=== PATIENT | male | born 1940 | race Caucasian/White ===

== ENCOUNTER → 2017-10-01 | Outpatient (CLI) | payer MEDICARE ==
--- NOTE | 2017-10-01 14:37 | Diagnostic Imaging Report ---
PROCEDURE: CT ABDOMEN AND PELVIS WITHOUT CONTRAST TECHNIQUE: The abdomen and pelvis were scanned utilizing a multidetector helical scanner from the diaphragm to the lesser trochanter after the oral administration of water. No IV contrast was administered per protocol. Coronal and sagittal multiplanar reformations were obtained. COMPARISON: None. INDICATIONS: CALCULUS OF KIDNEY FINDINGS: ABSENCE OF INTRAVENOUS CONTRAST DECREASES SENSITIVITY FOR DETECTION OF FOCAL LESIONS AND VASCULAR PATHOLOGY. LOWER THORAX: 2-3 mm noncalcified nodule in the posterior right lower lobe (series 3, image 29). Atherosclerotic calcification of the coronary arteries. HEPATOBILIARY: No focal hepatic lesions. No biliary ductal dilatation. Gallbladder is unremarkable. SPLEEN: No splenomegaly. PANCREAS: No focal masses or ductal dilatation. ADRENALS: Mild thickening of bilateral adrenal glands, without focal lesions. KIDNEYS/URETERS: Right: There is an approximately 1.9 x 1.6 x 1.6 cm fluid density structure in the superior pole of the right kidney which contains 5 oval-shaped calcific densities ranging in size from 0.4-0.9 cm (series 3, images 43-46). No other renal or ureteral calculi. No hydronephrosis or obstruction. 1.1 cm partially exophytic fluid density lesion in the interpolar region (coronal image 58). 0.6 cm partially exophytic fluid density lesion in the posterior interpolar region (series 3, image 55). Left: No renal or ureteral calculi, hydronephrosis, or obstruction. Several fluid density simple cysts are noted, as follows: * 1.8 x 1.7 cm cyst in the anterior, superior to mid aspect (series 3, image 49). * 1.5 x 1.2 cm simple cyst in the interpolar region (series 3, image 54). * 2.6 x 2.4 cm and 1.7 x 1.7 cm simple cysts in the posteromedial mid to inferior aspect (series 3, image 64). * 1.7 x 1.6 cm simple cyst in the inferior pole (series 3, image 70). PELVIC ORGANS/BLADDER: The bladder shows no focal lesions or significant wall thickening for degree of distention. Prostate is grossly unremarkable.. PERITONEUM / RETROPERITONEUM: No free air or fluid. LYMPH NODES: No lymphadenopathy. VESSELS: Focal ectasia of the infrarenal abdominal aorta which measures approximately 3.0 x 3.0 cm (series 3, image 70). GI TRACT: No bowel dilation or evidence of obstruction. BONES AND SOFT TISSUES: No aggressive lytic lesions. Multilevel degenerative disc changes in the lumbosacral spine, worse at L3 through S1. Moderate degenerative changes in the right hip joint with moderate cystic degenerative changes in the right femoral head and acetabulum. Soft tissues are unremarkable. IMPRESSION: 1. Findings in the superior pole of the right kidney may represent a dilated calyx with multiple dependent calculi versus remnants of prior staghorn calculus. No prior films are available for comparison. 2. No other renal, or any ureteral calculi, hydronephrosis, or obstruction. 3. Bilateral simple renal cysts. 4. 2-3 mm nodule in the posterior right lower lobe. If this is a low risk patient, no further followup is indicated per Fleischner Society 2017 guidelines. 5. Mild thickening of bilateral adrenal glands, likely reflecting mild hyperplasia. Akshat Clark M.D. Dictated by: Akshat Clark M.D. on 10/01/2017 at 14:42 Electronically approved by: Akshat Clark M.D. on 10/01/2017 at 14:42
== END ==
LOC: CT 09:26
PROVIDERS: ATTEND Urology
DX: N20.0 Calculus of kidney (principal); N28.1 Cyst of kidney, acquired
CPT/HCPCS: 74176

== ENCOUNTER → 2017-11-02 | Outpatient (CLI) | payer MEDICARE ==
--- NOTE | 2017-11-02 12:05 | Diagnostic Imaging Report ---
EXAM: CT Chest WITHOUT contrast INDICATION: \[id number] \S\1010 \S\SOLITARY PULMONARY NODULE COMPARISON: CT abdomen/pelvis dated 10/01/2017 TECHNIQUE: Chest was scanned utilizing a multidetector helical scanner from the lung apex through the level of the adrenal glands without administration of IV contrast. Absence of intravenous contrast decreases sensitivity for detection of lymphadenopathy and vascular pathology. Coronal and sagittal reformations were obtained. Routine protocol was performed. IV CONTRAST: None COMPLICATIONS: None RADIATION DOSE: Total DLP: 471.50 mGy*cm Estimated effective dose: (DLP x 0.014 x size factor) mSv CTDIvol has been reviewed. It is below the limits set by the Radiation Protocol Committee (RPC). FINDINGS: LINES/ TUBES: None. LUNGS AND AIRWAYS: The lungs are unremarkable. Unchanged nonspecific 4 mm posterior right base nodule (series 3, image 111). Punctate right lower lobe groundglass nodule (series 3, image 83). Airways are normal. PLEURA: The pleural spaces are clear. HEART AND MEDIASTINUM: The thyroid gland is normal. No mediastinal, hilar or axillary lymphadenopathy. The heart is normal in size.. There is no pericardial effusion. Severe atherosclerotic calcification of coronary arteries and possible coronary stent in place. UPPER ABDOMEN: Mildly thickened adrenal glands, likely due to hyperplasia. Renal cysts and right renal calculi. BONES: The visualized bony thorax is within normal limits. SOFT TISSUES: Unremarkable. IMPRESSION: 1. Nonspecific right lower lobe nodules. Without risk factors, no follow-up is necessary. With risk factors, follow-up with low-dose chest CT in one year is optional. 2. Redemonstration of right nephrolithiasis. Signed by: Dr. Luisito Tanner MD on 11/02/2017 12:02 PM
== END ==
LOC: CT 09:45
PROVIDERS: ATTEND Internal Medicine
DX: R91.1 Solitary pulmonary nodule (principal); Z87.891 Personal history of nicotine dependence
CPT/HCPCS: 71250

== ENCOUNTER → 2018-01-14 | Outpatient (CLI) | payer MEDICARE ==
--- NOTE | 2018-01-14 10:48 | Diagnostic Imaging Report ---
Exam: KUB. Clinical History: Calculus of kidney Comparison: None Findings: Frontal view of the abdomen demonstrates a nonobstructive bowel gas pattern with moderate retained stool. 1.6 cm stone over the right kidney. Scattered degenerative change about the bones. Impression: 1.6 cm stone over the right kidney. Signed by: Dr. Han Reeves M.D. on 01/14/2018 10:45 AM
== END ==
LOC: RAD 10:13
PROVIDERS: ATTEND Urology
DX: N20.0 Calculus of kidney (principal)
CPT/HCPCS: 74018

== ENCOUNTER → 2018-04-13 | Day surgery (SDC) | payer MEDICARE ==
--- NOTE | 2018-03-26 15:07 | Diagnostic Imaging Report ---
EXAMINATION: PA and lateral views of the chest. COMPARISON: CT chest 11/02/2017 CLINICAL HISTORY: Kidney stones, preop DISCUSSION: Lines/tubes: None. Lungs: The lungs are well inflated and clear. There is no evidence of pneumonia or pulmonary edema. Pleura: There is no pleural effusion or pneumothorax. Heart and mediastinum: Cardiomediastinal silhouette is unremarkable. Pulmonary vasculature is normal. Bones and soft tissues: No acute bony abnormalities. IMPRESSION: No acute cardiopulmonary abnormalities. Signed by: Dr. Akshat Clark M.D. on 03/26/2018 3:03 PM
[~2018-04-13] MED LIST: ASPIRIN81 MG PO; ATORVASTATIN CA80 MG PO; B-121000 MCG PO; BELLADONNA/OPIUM 30 MG SUPP RC ONE; CARVEDILOL12.5 MG PO; CEFTRIAXONE SOD 1 GM/NS 50 ML 0 ML IV ONE; CEFTRIAXONE SOD 1 GM/NS 50 ML 50 ML IV ONE; CLOPIDOGREL75 MG PO; COQ-10100 MG PO; DEXAMETHASONE SOD PHOS INJ 4 MG/ML VIAL ONE; FENTANYL CITRATE/PF 100MCG/2 ML INJ ONE; IOPAMIDOL 610MG/1ML 300 MG/ML VIAL IV ONE; LIDOCAINE HCL 2% LOCAL INJ 5 ML SDV VIAL INJ ONE; MIDAZOLAM HCL 2 MG/2 ML VIAL ONE; ONDANSETRON HCL INJ 2MG/ML 2ML 2 MG/ML VIAL ONE; PROPOFOL IV EMULSION 10 MG/ML 20 ML VIAL ONE; SEVOFLURANE INHAL SOLN 250 ML PEN BTL ONE; VITAMIN D31000 UNI1 PO; folic acid PO
--- OUTSIDE RECORDS SUMMARY | 2018-04-13 05:10 | XMS REPORT | Clinical Summary ---
Author Author [facility] Address Unknown Phone Unavailable Care Team Providers Care Lamination Technician Name Role Phone PCP Unavailable Allergies Not on File Medications Not on file Active Problems Not on file Social History Date Tobacco Use Types Packs/Day Years Used Never Assessed Sex Assigned at Date Recorded Not on file Industry Job Start Date Occupation Not on file Not on file Not on file Travel End Travel History Travel Start No recent travel history available. Last Filed Vital Signs Not on file Plan of Treatment Care Team Description Date Type Specialty Rusty Mcdonald MD 1975 [facility] [address] [place] [address] [phone] 05/07/2018 Hospital Encounter Rusty Mcdonald MD [address] [facility] [address] [place] [address] [phone] REPAIR,EXTROPIAN EXTENSIVE 05/07/2018 Surgery Results Not on fileafter 04/12/2017 Insurance Payer Benefit Subscriber ID Type Phone Address Plan / Group BLUE CROSS/BLUE SHIELD - BCBS xxxxxxxxxxxx MEDICARE [employer] CARE MEDICARE ADVANTAGE
--- OUTSIDE RECORDS SUMMARY | 2018-04-13 05:11 | XMS REPORT | Summary of Care ---
Author Author [facility] Organization [facility] Address Unknown Phone Unavailable Encounter HQ Amy(FIN) [id number] Date(s): 10/29/15 - 10/31/15 [facility] [address] [place] [address]- Discharge Disposition: Home or Self Care Attending Physician: Daryl Hauser MD Admitting Physician: Daryl Hauser MD Vital Signs 1 2 3 Most recent to oldest [Reference Range]: 172.72 cm (10/29/15 10:54 AM) Height 98.3 DegF (10/31/15 8:49 AM) 98.3 DegF (10/31/15 4:00 AM) 100.3 DegF *HI* (10/31/15 12:00 AM) Temperature Oral [96.4-99.1 DegF] 143/78 mmHg *HI* (10/31/15 8:49 AM) 134/84 mmHg (10/31/15 4:00 AM) 145/80 mmHg *HI* (10/31/15 12:00 AM) Blood Pressure [90-140/60-90 mmHg] 18 BRMIN (10/31/15 8:49 AM) 20 BRMIN (10/31/15 4:00 AM) 20 BRMIN (10/31/15 12:00 AM) Respiratory Rate [14-20 BRMIN] 85 bpm (10/31/15 8:49 AM) 80 bpm (10/31/15 4:00 AM) 83 bpm (10/31/15 12:00 AM) Peripheral Pulse Rate [60-100 bpm] 63.182 kg (10/29/15 10:54 AM) Weight 21.18 m2 (10/29/15 10:54 AM) Body Mass Index Problem List Condition Effective Dates Status Health Status Informant Hyperlipidemia(Confi Active rmed) Hypertension(Confirm Active ed) Testosterone(Confirm Active ed) Allergies, Adverse Reactions, Alerts Substance Reaction Severity Status NKDA Active Medications AndroGel Pump 1.25 g/actuation transdermal gel 4 pumps, TOP, QAM, 0 Refill(s) Start Date: 10/29/15 Stop Date: 10/31/15 Status: Discontinued aspirin 81 mg tablet, chewable 324 mg, Route: CHEW, ONCE, Dosing Weight 63.182, kg, Priority: STAT, Start date: 10/29/15 11:07:00 CDT, Stop date: 10/29/15 11:07:00 CDT Start Date: 10/29/15 Stop Date: 10/29/15 Status: Completed aspirin 81 mg tablet, enteric coated 81 mg, 1 tab, Route: PO, Drug form: ECTAB, Daily, Dosing Weight 63.182, kg, Star t date: 10/30/15 9:00:00 CDT, Duration: 30 day, Stop date: 11/28/15 9:00:00 CDT Notes: Do not crush or chew.(Same As: Ecotrin) Start Date: 10/30/15 Stop Date: 10/31/15 Status: Discontinued aspirin 81 mg tablet, enteric coated 81 mg=1 tab, PO, Daily, # 30 tab, 0 Refill(s) Start Date: 10/31/15 Stop Date: 11/30/15 Status: Ordered atorvastatin 80 mg oral tablet 80 mg=1 tab, PO, Bedtime, # 30 tab, 0 Refill(s) Start Date: 10/31/15 Stop Date: 11/30/15 Status: Ordered carvedilol 3.125 mg oral tablet 3.125 mg=1 tab, PO, Q12H, # 60 tab, 0 Refill(s) Start Date: 10/31/15 Stop Date: 11/30/15 Status: Ordered Colace 100 mg oral capsule 100 mg=1 cap, PO, BID, to prevent constipation., # 60 cap, 0 Refill(s) Start Date: 10/31/15 Stop Date: 11/30/15 Status: Ordered Colace 100 mg oral capsule 100 mg, 1 cap, Route: PO, Drug form: CAP, BID, Dosing Weight 63.182, kg, Start d ate: 10/30/15 9:00:00 CDT, Duration: 30 day, Stop date: 11/28/15 17:00:00 CDT Notes: (Same as: Colace) (Do Not Crush) Start Date: 10/30/15 Stop Date: 10/31/15 Status: Discontinued Coreg 3.125 mg, 1 tab, Route: PO, Drug form: TAB, Q12H, Dosing Weight 63.182, kg, Star t date: 10/30/15 10:00:00 CDT, Duration: 30 day, Stop date: 11/29/15 9:00:00 CDT Notes: Give with food. (Same As: Coreg) Start Date: 10/30/15 Stop Date: 10/31/15 Status: Discontinued Effient 10 mg, 1 tab, Route: PO, Drug form: TAB, Daily, Dosing Weight 63.182, kg, Priori ty: Routine, Start date: 10/30/15 9:00:00 CDT, Duration: 30 day, Stop date: 11/14 06/29 9:00:00 CDT Notes: Same as Effient For patients < 75 years old, > 60kg, without history of TIA/Ischemic stroke and without likely bypass surgery Start Date: 10/30/15 Stop Date: 10/31/15 Status: Discontinued heparin 4,000 unit, 4 mL, Route: IV, Drug form: INJ, ONCE, Dosing Weight 63.182, kg, Nahed ority: STAT, Start date: 10/29/15 11:30:00 CDT, Stop date: 10/29/15 11:30:00 CDT Start Date: 10/29/15 Stop Date: 10/29/15 Status: Completed Heparin - one time bolus for ACS 3,800 unit, 3.8 mL, Route: IV, Drug form: INJ, ONCE, Dosing Weight 63.182, kg, P riority: STAT, Start date: 10/29/15 11:08:00 CDT, Stop date: 10/29/15 11:08:00 C DT Start Date: 10/29/15 Stop Date: 10/29/15 Status: Deleted hydrALAZINE 10 mg, 0.5 mL, Route: IV, Drug form: INJ, Q4H, Dosing Weight 63.182, kg, PRN Hyp ertension, Priority: Routine, Start date: 10/29/15 15:57:00 CDT, Duration: 30 da y, Stop date: 11/28/15 15:56:00 CDT Notes: (Same as: Apresoline)Push over 5 minutes Start Date: 10/29/15 Stop Date: 10/31/15 Status: Discontinued Lipitor 80 mg, 2 tab, Route: PO, Drug form: TAB, Bedtime, Dosing Weight 63.182, kg, Star t date: 10/29/15 21:00:00 CDT, Duration: 30 day, Stop date: 11/27/15 21:00:00 CD T Notes: (Same as: Lipitor) Start Date: 10/29/15 Stop Date: 10/31/15 Status: Discontinued pneumococcal 13-valent vaccine 0.5 mL, Route: IM, Drug Form: INJ, Daily, Start date: 10/30/15 9:00:00 CDT, Dura tion: 1 doses or times, Stop date: 10/30/15 9:00:00 CDT Notes: Lightly roll vial (DO NOT SHAKE) before administration. (Same as: Prevna r 13) Start Date: 10/30/15 Stop Date: 10/30/15 Status: Completed prasugrel 10 mg oral tablet 10 mg=1 tab, PO, Daily, # 30 tab, 0 Refill(s) Start Date: 10/31/15 Stop Date: 11/30/15 Status: Ordered pravastatin 10 mg oral tablet 10 mg=1 tab, PO, Bedtime, 0 Refill(s) Start Date: 10/29/15 Stop Date: 10/31/15 Status: Discontinued sodium chloride 0.9% 1000 ml INJ 1,000 mL 1,000 mL, Rate: 100 ml/hr, Infuse over: 10 hr, Route: IV, Dosing Weight 63.182 k g, Total Volume: 1,000, Start date: 10/29/15 13:25:00 CDT, Duration: 2 day, Stop date: 10/31/15 13:24:00 CDT Start Date: 10/29/15 Stop Date: 10/30/15 Status: Discontinued Zofran 4 mg, 2 mL, Route: IVP, Drug form: INJ, Q8H, Dosing Weight 63.182, kg, PRN Nause a, Start date: 10/29/15 13:25:00 CDT, Duration: 30 day, Stop date: 11/28/15 13:2 4:00 CDT Notes: (Same as: Zofran) MEDICATION WASTE Product Size: 4 mgProduct Was [place]: ___ mg Start Date: 10/29/15 Stop Date: 10/31/15 Status: Discontinued Results ELECTROLYTES 1 2 3 Most recent to oldest [Reference Range]: 142 mEq/L (10/31/15 3:18 AM) 142 mEq/L (10/30/15 5:02 AM) 139 mEq/L (10/29/15 11:06 AM) Sodium Lvl [135-145 mEq/L] 4.1 mEq/L (10/31/15 3:18 AM) 4.1 mEq/L (10/30/15 5:02 AM) 4.1 mEq/L (10/29/15 11:06 AM) Potassium Lvl [3.5-5.1 mEq/L] 108 mEq/L (10/31/15 3:18 AM) 110 mEq/L *HI* (10/30/15 5:02 AM) 102 mEq/L (10/29/15 11:06 AM) Chloride Lvl [95-109 mEq/L] 29 mEq/L (10/31/15 3:18 AM) 24 mEq/L (10/30/15 5:02 AM) 30 mEq/L (10/29/15 11:06 AM) CO2 [24-32 mEq/L] 9.1 mEq/L *LOW* (10/31/15 3:18 AM) 12.1 mEq/L (10/30/15 5:02 AM) 11.1 mEq/L (10/29/15 11:06 AM) AGAP [10.0-20.0 mEq/L] CHEM PANEL 1 2 3 Most recent to oldest [Reference Range]: 1.03 mg/dL (10/31/15 3:18 AM) 0.93 mg/dL (10/30/15 5:02 AM) 1.14 mg/dL (10/29/15 11:06 AM) Creatinine Lvl [0.50-1.40 mg/dL] 72 mL/min/1.73m2 1 *NA* (10/31/15 3:18 AM) 82 mL/min/1.73m2 2 *NA* (10/30/15 5:02 AM) 63 mL/min/1.73m2 3 *NA* (10/29/15 11:06 AM) eGFR 15 mg/dL (10/31/15 3:18 AM) 17 mg/dL (10/30/15 5:02 AM) 20 mg/dL (10/29/15 11:06 AM) BUN [7-22 mg/dL] 18 (10/30/15 5:02 AM) 18 (10/29/15 11:06 AM) B/C Ratio [6-25] 119 mg/dL *HI* (10/31/15 3:18 AM) 118 mg/dL *HI* (10/30/15 5:02 AM) 92 mg/dL (10/29/15 11:06 AM) Glucose Lvl [70-99 mg/dL] 6.6 g/dL (10/31/15 3:18 AM) 5.9 g/dL *LOW* (10/30/15 5:02 AM) 8.3 g/dL (10/29/15 11:06 AM) Total Protein [6.4-8.4 g/dL] 2.9 g/dL *LOW* (10/31/15 3:18 AM) 3.0 g/dL *LOW* (10/30/15 5:02 AM) 4.0 g/dL (10/29/15 11:06 AM) Albumin Lvl [3.5-5.0 g/dL] 3.7 g/dL (10/31/15 3:18 AM) 2.9 g/dL (10/30/15 5:02 AM) 4.3 g/dL *HI* (10/29/15 11:06 AM) Globulin [2.7-4.2 g/dL] 0.8 (10/31/15 3:18 AM) 1.0 (10/30/15 5:02 AM) 0.9 (10/29/15 11:06 AM) A/G Ratio [0.7-1.6] 7.9 mg/dL *LOW* (10/31/15 3:18 AM) 7.7 mg/dL *LOW* (10/30/15 5:02 AM) 8.8 mg/dL (10/29/15 11:06 AM) Calcium Lvl [8.5-10.5 mg/dL] 3.1 mg/dL (10/30/15 5:02 AM) Phosphorus [2.5-4.5 mg/dL] 2.0 mg/dL (10/30/15 5:02 AM) Magnesium Lvl [1.8-2.4 mg/dL] 31 unit/L (10/31/15 3:18 AM) 35 unit/L (10/30/15 5:02 AM) 51 unit/L (10/29/15 11:06 AM) ALT [0-65 unit/L] 38 unit/L *HI* (10/31/15 3:18 AM) 56 unit/L *HI* (10/30/15 5:02 AM) 116 unit/L *HI* (10/29/15 11:06 AM) AST [0-37 unit/L] 46 unit/L (10/31/15 3:18 AM) 49 unit/L (10/30/15 5:02 AM) 58 unit/L (10/29/15 11:06 AM) Alk Phos [39-136 unit/L] 1.0 mg/dL (10/31/15 3:18 AM) 0.7 mg/dL (10/30/15 5:02 AM) 1.1 mg/dL (10/29/15 11:06 AM) Bili Total [0.2-1.3 mg/dL] 0.2 mg/dL (10/31/15 3:18 AM) 0.2 mg/dL (10/30/15 5:02 AM) Bili Direct [0.0-0.3 mg/dL] 0.8 mg/dL (10/31/15 3:18 AM) Bili Indirect [0.0-1.0 mg/dL] 1Result Comment: The eGFR is calculated using the CKD-EPI formula. In most young, healthy individuals the eGFR will be >90 mL/min/1.73m2. The eGFR declines with age. An eGFR of 60-89 may be normal in some populations, particularly the elderly, for whom the CKD-EPI formula has not been extensively validated. Use of the eGFR is not recommended in the following populations: Individuals with unstable creatinine concentrations, including patients and those with serious co-morbid conditions. Patients with extremes in muscle mass or diet. The data above are obtained from the National Kidney Disease Education Program ( NKDEP) which additionally recommends that when the eGFR is used in patients with extremes of body mass index for purposes of drug dosing, the eGFR should be mul tiplied by the estimated BMI. 2Result Comment: The eGFR is calculated using the CKD-EPI formula. In most young, healthy individuals the eGFR will be >90 mL/min/1.73m2. The eGFR declines with age. An eGFR of 60-89 may be normal in some populations, particularly the elderly, for whom the CKD-EPI formula has not been extensively validated. Use of the eGFR is not recommended in the following populations: Individuals with unstable creatinine concentrations, including patients and those with serious co-morbid conditions. Patients with extremes in muscle mass or diet. The data above are obtained from the National Kidney Disease Education Program ( NKDEP) which additionally recommends that when the eGFR is used in patients with extremes of body mass index for purposes of drug dosing, the eGFR should be mul tiplied by the estimated BMI. 3Result Comment: The eGFR is calculated using the CKD-EPI formula. In most young, healthy individuals the eGFR will be >90 mL/min/1.73m2. The eGFR declines with age. An eGFR of 60-89 may be normal in some populations, particularly the elderly, for whom the CKD-EPI formula has not been extensively validated. Use of the eGFR is not recommended in the following populations: Individuals with unstable creatinine concentrations, including patients and those with serious co-morbid conditions. Patients with extremes in muscle mass or diet. The data above are obtained from the National Kidney Disease Education Program ( NKDEP) which additionally recommends that when the eGFR is used in patients with extremes of body mass index for purposes of drug dosing, the eGFR should be mul tiplied by the estimated BMI. CARDIAC ENZYMES 1 2 3 Most recent to oldest [Reference Range]: 99 unit/L (10/31/15 3:18 AM) 147 unit/L (10/30/15 5:02 AM) 289 unit/L *HI* (10/29/15 11:06 AM) Total CK [12-191 unit/L] 1.5 ng/mL (10/31/15 3:18 AM) 4.8 ng/mL *HI* (10/30/15 5:02 AM) 10.1 ng/mL *HI* (10/29/15 11:06 AM) CK MB [0.5-3.6 ng/mL] 1.5 (10/31/15 3:18 AM) 3.3 *HI* (10/30/15 5:02 AM) 3.5 *HI* (10/29/15 11:06 AM) CK MB Index [0.0-2.5] 8.00 ng/mL 1 *CRIT* (10/31/15 3:18 AM) 12.00 ng/mL 2 *CRIT* (10/30/15 5:02 AM) 14.00 ng/mL 3 *CRIT* (10/29/15 11:06 AM) Troponin-I [0.00-0.40 ng/mL] 1Result Comment: Critical Result(s) called to mary slade at 10/31/2015 04:15 by lgmichael. Read back OK. 2Result Comment: Critical Result(s) called to justina rodriguez at 10/30/2015 06:07 by jw. Read back OK. 3Result Comment: Critical Result(s) called to Corey at 10/29/2015 11:38 byiko. Read back OK. LIPIDS 1 2 3 Most recent to oldest [Reference Range]: 2.83 *LOW* (10/29/15 2:40 PM) CHD Risk [4.00-7.30] 133 mg/dL (10/29/15 2:40 PM) Chol [<=199 mg/dL] 86 mg/dL (10/29/15 2:40 PM) Trig [<=149 mg/dL] 47 mg/dL *LOW* (10/29/15 2:40 PM) HDL [>=61 mg/dL] 69 mg/dL (10/29/15 2:40 PM) LDL (Calculated) [<=99 mg/dL] 17 *NA* (10/29/15 2:40 PM) VLDL IMMUNOLOGY 1 2 3 Most recent to oldest [Reference Range]: Negative *NA* (10/29/15 2:40 PM) Hep Bs Ag [Negative] Negative *NA* (10/29/15 2:40 PM) Hep B Core IgM [Negative] Negative *NA* (10/29/15 2:40 PM) Hep A IgM [Negative] Negative *NA* (10/29/15 2:40 PM) Hep C Ab HEMATOLOGY 1 2 3 Most recent to oldest [Reference Range]: 8.4 K/CMM (10/30/15 5:02 AM) 9.5 K/CMM (10/29/15 11:06 AM) WBC [3.7-10.4 K/CMM] 4.61 M/CMM *LOW* (10/30/15 5:02 AM) 5.45 M/CMM (10/29/15 11:06 AM) RBC [4.70-6.10 M/CMM] 14.1 g/dL (10/31/15 3:18 AM) 14.0 g/dL (10/30/15 5:02 AM) 16.2 g/dL (10/29/15 11:06 AM) Hgb [14.0-18.0 g/dL] 43.1 % (10/31/15 3:18 AM) 42.1 % (10/30/15 5:02 AM) 49.9 % (10/29/15 11:06 AM) Hct [42.0-54.0 %] 91.4 fL (10/30/15 5:02 AM) 91.6 fL (10/29/15 11:06 AM) MCV [80.0-94.0 fL] 30.3 pg (10/30/15 5:02 AM) 29.8 pg (10/29/15 11:06 AM) MCH [27.0-31.0 pg] 33.2 g/dL (10/30/15 5:02 AM) 32.6 g/dL (10/29/15 11:06 AM) MCHC [32.0-36.0 g/dL] 14.3 % (10/30/15 5:02 AM) 14.5 % (10/29/15 11:06 AM) RDW [11.5-14.5 %] 158 K/CMM (10/30/15 5:02 AM) 198 K/CMM (10/29/15 11:06 AM) Platelet [133-450 K/CMM] 8.8 fL (10/30/15 5:02 AM) 8.5 fL (10/29/15 11:06 AM) MPV [7.4-10.4 fL] 70.7 % (10/30/15 5:02 AM) 67.0 % (10/29/15 11:06 AM) Segs [45.0-75.0 %] 13.5 % *LOW* (10/30/15 5:02 AM) 15.7 % *LOW* (10/29/15 11:06 AM) Lymphocytes [20.0-40.0 %] 14.9 % *HI* (10/30/15 5:02 AM) 16.1 % *HI* (10/29/15 11:06 AM) Monocytes [2.0-12.0 %] 0.7 % (10/30/15 5:02 AM) 0.6 % (10/29/15 11:06 AM) Eosinophils [0.0-4.0 %] 0.2 % (10/30/15 5:02 AM) 0.6 % (10/29/15 11:06 AM) Basophils [0.0-1.0 %] 6.0 K/CMM (10/30/15 5:02 AM) 6.4 K/CMM (10/29/15 11:06 AM) Segs-Bands # [1.5-8.1 K/CMM] 1.1 K/CMM (10/30/15 5:02 AM) 1.5 K/CMM (10/29/15 11:06 AM) Lymphocytes # [1.0-5.5 K/CMM] 1.3 K/CMM *HI* (10/30/15 5:02 AM) 1.5 K/CMM *HI* (10/29/15 11:06 AM) Monocytes # [0.0-0.8 K/CMM] 0.1 K/CMM (10/30/15 5:02 AM) 0.1 K/CMM (10/29/15 11:06 AM) Eosinophils # [0.0-0.5 K/CMM] 0.1 K/CMM (10/29/15 11:06 AM) Basophils # [0.0-0.2 K/CMM] 14.1 seconds (10/29/15 11:06 AM) PT [12.0-14.7 seconds] 1.06 (10/29/15 11:06 AM) INR [0.85-1.17] 29.6 seconds (10/29/15 11:06 AM) PTT [22.9-35.8 seconds] Immunizations Given and Recorded Vaccine Date Status Refusal Reason pneumococcal 13-valent vaccine 10/30/15 Given Procedures Procedure Date Related Diagnosis Body Site Appendectomy; Tonsillectomy and adenoidectomy; age 12 or over Social History Social History Type Response Smoking Status Never smoker; Ready to change: No; Exposure to Tobacco Smoke None; Cigarette Smoking Last 365 Days No; Reg Smoking Cessation Counseling No Assessment and Plan Extracted from: Title: Clinical Document Author: Daryl Hauser MD Date: 10/31/15 Daryl Hauser M.D. [facility] Admitting diagnosis: Acute inferior STEMI Other diagnosis: NANCY of mid RCA; residual CAD of LAD and lCx Other Diagnosis: *NANCY of mid RCA for Inferior STEMI; 2V residual CAD 1. Mixed hyperlipidemia. 2. Hypoandrogenism. VitalsTmp(F)Tmp(C)[id number] 10/30 08:[id number]------ 10/30 04:[id number]---[id number]------ 10/30 [id number]---[id number]------ 10/29 22:00 [id number]------ 10/29 21:00 [id number]------ General: No acute distress; Eyes:EOMI Neck: No JVD; no swelling Heart: S1, S2 normal; No murmur, No rub, No gallop Chest: B/L Air Entry +; No wheeze; No crepititions PA: BS+; NT; ND NS: AAOx3; No signs of lateralization Extremities,Lower : No edema; right groin: no problems Labs & Diagnostic Work up: Labs (Last four charted values) WBC 8.4(OCT 29)9.5(OCT 28) Hgb 14.1(OCT 30)14.0(OCT 29)16.2(OCT 28) Hct 43.1(OCT 30)42.1(OCT 29)49.9(OCT 28) Plt 158(OCT 29)198(OCT 28) Na 142(OCT 30)142(OCT 29)139(OCT 28) K 4.1(OCT 30)4.1(OCT 29)4.1(OCT 28) CO2 29(OCT 30)24(OCT 29)30(OCT 28) Cl 108(OCT 30)H 110(OCT 29)102(OCT 28) Cr 1.03(OCT 30)0.93(OCT 29)1.14(OCT 28) BUN 15(OCT 30)17(OCT 29)20(OCT 28) Glucose Random H 119(OCT 30)H 118(OCT 29)92(OCT 28) Mg 2.0(OCT 29) Phos 3.1(OCT 29) Ca L 7.9(OCT 30)L 7.7(OCT 29)8.8(OCT 28) PT 14.1(OCT 28) INR 1.06(OCT 28) PTT 29.6(OCT 28) Troponin C 8.00(OCT 30)C 12.00(OCT 29)C 14.00(OCT 28) CK MB 1.5(OCT 30)H 4.8(OCT 29)H 10.1(OCT 28) Total CK 99(OCT 30)147(OCT 29)H 289(OCT 28) Medications Medications (7) Active Scheduled: (5) aspirin 81 mg ECT 81 mg 1 tab, PO, Daily atorvastatin 40mg tab 80 mg 2 tab, PO, Bedtime carvedilol 3.125 mg TAB 3.125 mg 1 tab, PO, Q12H docusate sodium 100 mg CAP 100 mg 1 cap, PO, BID prasugrel 10 mg tab 10 mg 1 tab, PO, Daily Continuous: (0) PRN: (2) hydrALAZINE 20 mg/1 ml VL 10 mg 0.5 mL, IV, Q4H ondansetron 4mg/2mL INJ SYRINGE 4 mg 2 mL, IVP, Q8H Hospital Course: Mr Barnes was admitted for acute inferior STEMI. he underwent emergent NANCY of mid RCA. He did well post procedure. He has residual CAD of LCx and LAD that will be addressed as outpatient. he was discharged with following recommendations: Activity: as advised Follow up with DR Sanju sharp as advised and Dr Hauser 11/13/2015 at 1520 PM MEDS: per med rec; advised to stop androgen supplements Condition: stable Diet: heart healthy Atleast > 31 minutes time spent in managing discharge of thos patient
--- OUTSIDE RECORDS SUMMARY | 2018-04-13 05:11 | XMS REPORT | Summary of Care ---
Author Author [facility] Organization [facility] Address Unknown Phone Unavailable Encounter HQ Amy(FIN) [phone] Date(s): 03/01/16 - 03/04/16 [facility] [address] [place] [address]- Discharge Disposition: Home or Self Care Attending Physician: Sanju Robles MD Admitting Physician: Sanju Robles MD Vital Signs 1 2 3 Most recent to oldest [Reference Range]: 172.72 cm (03/01/16 5:31 PM) Height 98.1 DegF (03/04/16 12:00 PM) 97.7 DegF (03/04/16 8:00 AM) 99.1 DegF (03/04/16 4:00 AM) Temperature Oral [96.4-99.1 DegF] 151/72 mmHg *HI* (03/04/16 12:00 PM) 148/71 mmHg *HI* (03/04/16 8:00 AM) 153/66 mmHg *HI* (03/04/16 4:00 AM) Blood Pressure [90-140/60-90 mmHg] 18 BRMIN (03/04/16 12:00 PM) 18 BRMIN (03/04/16 8:00 AM) 16 BRMIN (03/04/16 4:00 AM) Respiratory Rate [14-20 BRMIN] 77 bpm (03/04/16 12:00 PM) 77 bpm (03/04/16 8:00 AM) 82 bpm (03/04/16 4:00 AM) Peripheral Pulse Rate [60-100 bpm] 64.091 kg (03/01/16 5:31 PM) Weight 21.48 m2 (03/01/16 5:31 PM) Body Mass Index Problem List Condition Effective Dates Status Health Status Informant Chest Active pain(Confirmed) CAD (coronary artery Active disease)(Confirmed) Hyperlipidemia(Confi Active rmed) Hypertension(Confirm Active ed) 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 (Same as: Tylenol) Start Date: 03/01/16 Stop Date: 03/04/16 Status: Discontinued ANES acetaminophen 1,000 mg, Route: IVPB, Drug form: INJ, ONCE, Dosing Weight 64.091, kg, PRN Pain Score 1-3, Start date: 03/01/16 23:48:00 ENVIRONMENTAL HEALTH SAFETY ENGINEER, Duration: 1 doses or times, Stop d ate: Limited # of times Start Date: 03/01/16 Stop Date: 03/02/16 Status: Discontinued ANES fentaNYL 50 microgram, Route: IVP, Q5Min, Dosing Weight 64.091, kg, PRN Pain Score 7-10, Priority: Routine, Start date: 03/01/16 23:48:00 ENVIRONMENTAL HEALTH SAFETY ENGINEER, Duration: 2 doses or times , Stop date: Limited # of times Start Date: 03/01/16 Stop Date: 03/02/16 Status: Discontinued ANES flumazenil 0.2 mg, Route: IVP, PRN, Dosing Weight 64.091, kg, PRN Benzodiazepine Reversal, Initial dose, Start date: 03/01/16 23:48:00 ENVIRONMENTAL HEALTH SAFETY ENGINEER, Duration: 30 day, Stop date: 23:47:00 ENVIRONMENTAL HEALTH SAFETY ENGINEER Start Date: 03/01/16 Stop Date: 03/02/16 Status: Discontinued ANES HYDROmorphone 0.5 mg, Route: IVP, Q5Min, Dosing Weight 64.091, kg, PRN Pain Score 7-10, Start date: 03/01/16 23:48:00 ENVIRONMENTAL HEALTH SAFETY ENGINEER, Duration: 4 doses or times, Stop date: Limited # of times Start Date: 03/01/16 Stop Date: 03/02/16 Status: Discontinued ANES morphine Sulfate 2 mg, Route: IVP, Q5Min, Dosing Weight 64.091, kg, PRN Pain Score 4-6, Start jose e: 03/01/16 23:48:00 ENVIRONMENTAL HEALTH SAFETY ENGINEER, Duration: 5 doses or times, Stop date: Limited # of ti mes Start Date: 03/01/16 Stop Date: 03/02/16 Status: Discontinued ANES morphine Sulfate 4 mg, Route: IVP, Q5Min, Dosing Weight 64.091, kg, PRN Pain Score 7-10, Start da te: 03/01/16 23:48:00 ENVIRONMENTAL HEALTH SAFETY ENGINEER, Duration: 3 doses or times, Stop date: Limited # of t imes Start Date: 03/01/16 Stop Date: 03/02/16 Status: Discontinued ANES naloxone 0.4 mg, Route: IVP, Q2MIN, Dosing Weight 64.091, kg, PRN Narcotic Reversal, Star t date: 03/01/16 23:48:00 ENVIRONMENTAL HEALTH SAFETY ENGINEER, Duration: 8 doses or times, Stop date: Limited # of times Start Date: 03/01/16 Stop Date: 03/02/16 Status: Discontinued ANES ondansetron 4 mg, Route: IVP, ONCE, Dosing Weight 64.091, kg, PRN Nausea & Vomiting, Start date: 03/01/16 23:48:00 ENVIRONMENTAL HEALTH SAFETY ENGINEER Start Date: 03/01/16 Stop Date: 03/02/16 Status: Discontinued ANES promethazine 6.25 mg, Route: IVPB, ONCE, Dosing Weight 64.091, kg, PRN Nausea & Vomiting, Start date: 03/01/16 23:48:00 ENVIRONMENTAL HEALTH SAFETY ENGINEER Start Date: 03/01/16 Stop Date: 03/02/16 Status: Discontinued aspirin 81 mg tablet, enteric coated 81 mg=1 tab, PO, Daily, 0 Refill(s) Start Date: 03/04/16 Status: Ordered aspirin 81 mg tablet, enteric coated 81 mg, 1 tab, Route: PO, Drug form: ECTAB, Daily, Dosing Weight 64.091, kg, Prio rity: NOW, Start date: 03/02/16 10:14:00 ENVIRONMENTAL HEALTH SAFETY ENGINEER, Duration: 30 day, Stop date: 04/01 9:00:00 ENVIRONMENTAL HEALTH SAFETY ENGINEER Notes: Do not crush or chew.(Same As: Ecotrin) Start Date: 03/02/16 Stop Date: 03/04/16 Status: Discontinued atorvastatin 80 mg, 2 tab, Route: PO, Drug form: TAB, Bedtime, Dosing Weight 64.091, kg, Star t date: 03/02/16 21:00:00 ENVIRONMENTAL HEALTH SAFETY ENGINEER, Duration: 30 day, Stop date: 03/31/16 21:00:00 CS T Notes: (Same as: Lipitor) Start Date: 03/02/16 Stop Date: 03/04/16 Status: Discontinued atorvastatin 40 mg oral tablet 80 mg=2 tab, PO, Bedtime, 0 Refill(s) Start Date: 03/04/16 Status: Ordered Augmentin 875 mg oral tablet 1 tab, Route: PO, Drug Form: TAB, Dosing Weight 64.091, kg, [id number], Start date: 03/02/16 2:00:00 ENVIRONMENTAL HEALTH SAFETY ENGINEER, Duration: 30 day, Stop date: 03/31/16 14:00:00 ENVIRONMENTAL HEALTH SAFETY ENGINEER Notes: With food.(Same as: Augmentin 875) Start Date: 03/02/16 Stop Date: 03/04/16 Status: Discontinued Augmentin 875 mg oral tablet 1 tab, PO, [id number], # 10 tab, 0 Refill(s) Start Date: 03/04/16 Stop Date: 03/09/16 Status: Ordered carvedilol 6.25 mg, 2 tab, Route: PO, Drug form: TAB, Q12H, Dosing Weight 64.091, kg, Start date: 03/02/16 9:00:00 ENVIRONMENTAL HEALTH SAFETY ENGINEER, Stop date: 03/31/16 21:00:00 ENVIRONMENTAL HEALTH SAFETY ENGINEER Notes: Give with food. (Same As: Coreg) Start Date: 03/02/16 Stop Date: 03/04/16 Status: Discontinued carvedilol 3.125 mg oral tablet 6.25 mg=2 tab, PO, Q12H, # 120 tab, 1 Refill(s) Start Date: 03/04/16 Stop Date: 05/03/16 Status: Ordered clopidogrel 75 mg oral tablet 75 mg=1 tab, PO, Daily, # 30 tab, 1 Refill(s) Start Date: 03/04/16 Stop Date: 05/03/16 Status: Ordered D5NS 1,000 mL 1,000 mL, Rate: 125 ml/hr, Infuse over: 8 hr, Route: IV, Dosing Weight 64.091 kg , Total Volume: 1,000, Start date: 03/01/16 21:24:00 ENVIRONMENTAL HEALTH SAFETY ENGINEER, Duration: 30 day, Stop date: 03/31/16 21:23:00 ENVIRONMENTAL HEALTH SAFETY ENGINEER Start Date: 03/01/16 Stop Date: 03/02/16 Status: Discontinued D5W 1/2NS 1,000 mL 1,000 mL, Rate: 100 ml/hr, Infuse over: 10 hr, Route: IV, Dosing Weight 64.091 k g, Total Volume: 1,000, Start date: 03/01/16 20:51:00 ENVIRONMENTAL HEALTH SAFETY ENGINEER, Duration: 30 day, Sto p date: 03/31/16 20:50:00 ENVIRONMENTAL HEALTH SAFETY ENGINEER Start Date: 03/01/16 Stop Date: 03/02/16 Status: Discontinued D5W 1/2NS 1000 ml INJ (ANES) Route: IV, Total Volume: 1,000, Start date: 03/01/16 23:00:00 ENVIRONMENTAL HEALTH SAFETY ENGINEER, Stop date: 0:00:00 ENVIRONMENTAL HEALTH SAFETY ENGINEER Start Date: 03/01/16 Stop Date: 03/02/16 Status: Completed docusate 100 mg, 1 cap, Route: PO, Drug form: CAP, BID, Dosing Weight 64.091, kg, PRN Con stipation, Start date: 03/01/16 21:24:00 ENVIRONMENTAL HEALTH SAFETY ENGINEER, Duration: 30 day, Stop date: 03/31 21:23:00 ENVIRONMENTAL HEALTH SAFETY ENGINEER Notes: (Same as: Colace) (Do Not Crush) Start Date: 03/01/16 Stop Date: 03/04/16 Status: Discontinued EPINEPHrine (ANES) Route: IV, Drug form: INJ, ONCE, Stop date: 03/02/16 0:49:00 ENVIRONMENTAL HEALTH SAFETY ENGINEER Start Date: 03/02/16 Stop Date: 03/02/16 Status: Completed fentaNYL (ANES) Route: IV, Drug form: INJ, ONCE, Stop date: 03/02/16 0:14:00 ENVIRONMENTAL HEALTH SAFETY ENGINEER Start Date: 03/02/16 Stop Date: 03/02/16 Status: Completed Feosol 325 mg oral tablet 325 mg, 1 tab, Route: PO, Drug form: ECTAB, Daily, Dosing Weight 64.091, kg, Sta rt date: 03/05/16 9:00:00 ENVIRONMENTAL HEALTH SAFETY ENGINEER, Duration: 30 day, Stop date: 04/03/16 9:00:00 ENVIRONMENTAL HEALTH SAFETY ENGINEER Notes: Give with food. "Do Not Crush" Start Date: 03/05/16 Stop Date: 03/04/16 Status: Canceled Feosol 325 mg oral tablet 325 mg=1 tab, PO, Daily, # 30 tab, 0 Refill(s) Start Date: 03/04/16 Stop Date: 04/04/16 Status: Ordered lactulose 10 g/15 mL oral syrup 10 gm, 15 mL, Route: PO, Drug Form: SYRP, Dosing Weight 64.091, kg, BID, Start d ate: 03/03/16 17:00:00 ENVIRONMENTAL HEALTH SAFETY ENGINEER, Duration: 30 day, Stop date: 04/02/16 9:00:00 ENVIRONMENTAL HEALTH SAFETY ENGINEER Notes: (Same as:Chronulac) Start Date: 03/03/16 Stop Date: 03/04/16 Status: Discontinued lidocaine (ANES) Route: IV, Drug form: INJ, ONCE, Stop date: 03/02/16 0:14:00 ENVIRONMENTAL HEALTH SAFETY ENGINEER Start Date: 03/02/16 Stop Date: 03/02/16 Status: Completed morphine Sulfate 2 mg, 1 mL, Route: IVP, Drug form: INJ, Q4H, Dosing Weight 64.091, kg, PRN Pain Score 7-10, Start date: 03/01/16 21:24:00 ENVIRONMENTAL HEALTH SAFETY ENGINEER, Duration: 30 day, Stop date: 03/16 08/30 21:23:00 ENVIRONMENTAL HEALTH SAFETY ENGINEER Notes: (Same as:MORPhine Sulfate) Start Date: 03/01/16 Stop Date: 03/04/16 Status: Discontinued norepinephrine (ANES) Route: IV, Drug form: INJ, ONCE, Stop date: 03/02/16 0:14:00 ENVIRONMENTAL HEALTH SAFETY ENGINEER Start Date: 03/02/16 Stop Date: 03/02/16 Status: Completed ondansetron 4 mg, 2 mL, Route: IVP, Drug form: INJ, Q6H, Dosing Weight 64.091, kg, PRN Nause a & Vomiting, Start date: 03/01/16 21:24:00 ENVIRONMENTAL HEALTH SAFETY ENGINEER, Duration: 30 day, Stop date: 03/31/16 21:23:00 ENVIRONMENTAL HEALTH SAFETY ENGINEER Notes: (Same as: Zofran) MEDICATION WASTE Product Size: 4 mgProduct Was [place]: ___ mg Start Date: 03/01/16 Stop Date: 03/04/16 Status: Discontinued ondansetron (ANES) Route: IV, Drug form: INJ, ONCE, Stop date: 03/02/16 0:57:00 ENVIRONMENTAL HEALTH SAFETY ENGINEER Start Date: 03/02/16 Stop Date: 03/02/16 Status: Completed Pepcid 20 mg oral tablet 20 mg, 1 tab, Route: PO, Drug form: TAB, Bedtime, Dosing Weight 64.091, kg, Star t date: 03/03/16 21:00:00 ENVIRONMENTAL HEALTH SAFETY ENGINEER, Duration: 30 day, Stop date: 04/01/16 21:00:00 CS T Notes: (Same as: Pepcid) Start Date: 03/03/16 Stop Date: 03/04/16 Status: Discontinued phenylephrine (ANES) Route: IV, Drug form: INJ, ONCE, Stop date: 03/02/16 0:14:00 ENVIRONMENTAL HEALTH SAFETY ENGINEER Start Date: 03/02/16 Stop Date: 03/02/16 Status: Completed Plavix 75 mg, 1 tab, Route: PO, Drug form: TAB, Daily, Dosing Weight 64.091, kg, Priori ty: NOW, Start date: 03/03/16 14:33:00 ENVIRONMENTAL HEALTH SAFETY ENGINEER, Duration: 30 day, Stop date: 7 9:00:00 ENVIRONMENTAL HEALTH SAFETY ENGINEER Notes: (Same As: Plavix) Start Date: 03/03/16 Stop Date: 03/04/16 Status: Discontinued potassium phosphate-sodium phosphate 250 mg-280 mg-160 mg oral powder for recons titution 1 pkt, Route: PO, Drug Form: PDR/REC, Dosing Weight 64.091, kg, ONCE, Start date : 03/03/16 9:23:00 ENVIRONMENTAL HEALTH SAFETY ENGINEER, Stop date: 03/03/16 9:23:00 ENVIRONMENTAL HEALTH SAFETY ENGINEER Notes: (Same as: Phos-NaK) Each 1.5 gm pkt has 250mg phosphorous. Mix w/2.5oz w ater and stir. Start Date: 03/03/16 Stop Date: 03/03/16 Status: Completed propofol (ANES) Route: IV, Drug form: INJ, ONCE, Stop date: 03/02/16 0:19:00 ENVIRONMENTAL HEALTH SAFETY ENGINEER Start Date: 03/02/16 Stop Date: 03/02/16 Status: Completed Reglan 10 mg, 2 mL, Route: IVP, Drug form: INJ, Q6H, Dosing Weight 64.091, kg, PRN Naus ea, Start date: 03/01/16 21:54:00 ENVIRONMENTAL HEALTH SAFETY ENGINEER, Duration: 30 day, Stop date: 03/31/16 21: 53:00 ENVIRONMENTAL HEALTH SAFETY ENGINEER Notes: (Same as: Reglan) Start Date: 03/01/16 Stop Date: 03/04/16 Status: Discontinued Saline Flush 0.9% 10 ml, Route: IVP, Drug Form: INJ, Dosing Weight 64.091, kg, PRN, PRN Line Flush , Start date: 03/01/16 21:24:00 ENVIRONMENTAL HEALTH SAFETY ENGINEER, Duration: 30 day, Stop date: 03/31/16 21:23 :00 ENVIRONMENTAL HEALTH SAFETY ENGINEER Notes: (Same as: BD Posiflush) Start Date: 03/01/16 Stop Date: 03/04/16 Status: Discontinued sodium chloride 0.9% 1000 ml INJ (ANES) Route: IV, Total Volume: 1,000, Start date: 03/01/16 23:55:00 ENVIRONMENTAL HEALTH SAFETY ENGINEER, Stop date: 0:55:00 ENVIRONMENTAL HEALTH SAFETY ENGINEER Start Date: 03/01/16 Stop Date: 03/02/16 Status: Completed succinylcholine (ANES) Route: IV, Drug form: INJ, ONCE, Stop date: 03/02/16 0:19:00 ENVIRONMENTAL HEALTH SAFETY ENGINEER Start Date: 03/02/16 Stop Date: 03/02/16 Status: Completed Zithromax + sodium chloride 0.9% INJ 250 mL 500 mg, Route: IVPB, [id number], Dosing Weight 64.091, kg, Start date: 03/02/16 11: 00:00 ENVIRONMENTAL HEALTH SAFETY ENGINEER, Duration: 30 day, Stop date: 03/31/16 11:00:00 ENVIRONMENTAL HEALTH SAFETY ENGINEER Notes: (Same As: Zithromax IV) Start Date: 03/02/16 Stop Date: 03/03/16 Status: Discontinued Zofran 4 mg, 2 mL, Route: IVP, Drug form: INJ, ONCE, Dosing Weight 64.091, kg, Start da te: 03/01/16 20:39:00 ENVIRONMENTAL HEALTH SAFETY ENGINEER, Stop date: 03/01/16 20:39:00 ENVIRONMENTAL HEALTH SAFETY ENGINEER Notes: (Same as: [place]) MEDICATION WASTE Product Size: 4 mgProduct Was [place]: ___ mg Start Date: 03/01/16 Stop Date: 03/01/16 Status: Completed Results BLOOD BANK RESULTS 1 2 3 Most recent to oldest [Reference Range]: B POS *Unknown* (03/01/16 9:01 PM) ABO/Rh Negative (03/01/16 9:01 PM) Antibody Scrn ELECTROLYTES 1 2 3 Most recent to oldest [Reference Range]: 145 mEq/L (03/04/16 5:35 AM) 144 mEq/L (03/03/16 4:10 AM) 146 mEq/L *HI* (03/02/16 3:42 AM) Sodium Lvl [135-145 mEq/L] 3.9 mEq/L (03/04/16 5:35 AM) 4.2 mEq/L (03/03/16 4:10 AM) 4.1 mEq/L (03/02/16 3:42 AM) Potassium Lvl [3.5-5.1 mEq/L] 108 mEq/L (03/04/16 5:35 AM) 108 mEq/L (03/03/16 4:10 AM) 111 mEq/L *HI* (03/02/16 3:42 AM) Chloride Lvl [95-109 mEq/L] 26 mEq/L (03/04/16 5:35 AM) 28 mEq/L (03/03/16 4:10 AM) 26 mEq/L (03/02/16 3:42 AM) CO2 [24-32 mEq/L] 14.9 mEq/L (03/04/16 5:35 AM) 12.2 mEq/L (03/03/16 4:10 AM) 13.1 mEq/L (03/02/16 3:42 AM) AGAP [10.0-20.0 mEq/L] CHEM PANEL 1 2 3 Most recent to oldest [Reference Range]: 1.00 mg/dL (03/04/16 5:35 AM) 1.20 mg/dL (03/03/16 4:10 AM) 1.30 mg/dL (03/02/16 3:42 AM) Creatinine Lvl [0.50-1.40 mg/dL] 74 mL/min/1.73m2 1 *NA* (03/04/16 5:35 AM) 59 mL/min/1.73m2 2 *NA* (03/03/16 4:10 AM) 54 mL/min/1.73m2 3 *NA* (03/02/16 3:42 AM) eGFR 16 mg/dL (03/04/16 5:35 AM) 27 mg/dL *HI* (03/03/16 4:10 AM) 42 mg/dL *HI* (03/02/16 3:42 AM) BUN [7-22 mg/dL] 22 (03/03/16 4:10 AM) 32 *HI* (03/02/16 3:42 AM) 24 (03/01/16 6:05 PM) B/C Ratio [6-25] 109 mg/dL *HI* (03/04/16 5:35 AM) 123 mg/dL *HI* (03/03/16 4:10 AM) 159 mg/dL *HI* (03/02/16 3:42 AM) Glucose Lvl [70-99 mg/dL] 5.5 g/dL *LOW* (03/03/16 4:10 AM) 5.7 g/dL *LOW* (03/02/16 3:42 AM) 7.0 g/dL (03/01/16 6:05 PM) Total Protein [6.4-8.4 g/dL] 2.8 g/dL *LOW* (03/03/16 4:10 AM) 3.0 g/dL *LOW* (03/02/16 3:42 AM) 3.8 g/dL (03/01/16 6:05 PM) Albumin Lvl [3.5-5.0 g/dL] 2.7 g/dL (03/03/16 4:10 AM) 2.7 g/dL (03/02/16 3:42 AM) 3.2 g/dL (03/01/16 6:05 PM) Globulin [2.7-4.2 g/dL] 1.0 (03/03/16 4:10 AM) 1.1 (03/02/16 3:42 AM) 1.2 (03/01/16 6:05 PM) A/G Ratio [0.7-1.6] 7.9 mg/dL *LOW* (03/04/16 5:35 AM) 7.8 mg/dL *LOW* (03/03/16 4:10 AM) 7.9 mg/dL *LOW* (03/02/16 3:42 AM) Calcium Lvl [8.5-10.5 mg/dL] 3.4 mg/dL (03/04/16 5:35 AM) 2.3 mg/dL *LOW* (03/03/16 4:10 AM) 2.7 mg/dL (03/02/16 3:42 AM) Phosphorus [2.5-4.5 mg/dL] 2.2 mg/dL (03/03/16 4:10 AM) 2.3 mg/dL (03/02/16 3:42 AM) Magnesium Lvl [1.8-2.4 mg/dL] 21 unit/L (03/03/16 4:10 AM) 27 unit/L (03/02/16 3:42 AM) 34 unit/L (03/01/16 6:05 PM) ALT [0-65 unit/L] 11 unit/L (03/03/16 4:10 AM) 18 unit/L (03/02/16 3:42 AM) 21 unit/L (03/01/16 6:05 PM) AST [0-37 unit/L] 45 unit/L (03/03/16 4:10 AM) 52 unit/L (03/02/16 3:42 AM) 79 unit/L (03/01/16 6:05 PM) Alk Phos [39-136 unit/L] 0.7 mg/dL (03/03/16 4:10 AM) 0.4 mg/dL (03/02/16 3:42 AM) 0.5 mg/dL (03/01/16 6:05 PM) Bili Total [0.2-1.3 mg/dL] 1Result Comment: The eGFR is calculated [...] be mul tiplied by the estimated BMI. HEMATOLOGY 1 2 3 Most recent to oldest [Reference Range]: 9.8 K/CMM (03/04/16 5:35 AM) 13.5 K/CMM *HI* (03/03/16 4:10 AM) 10.1 K/CMM (03/02/16 3:42 AM) WBC [3.7-10.4 K/CMM] 2.55 M/CMM *LOW* (03/04/16 5:35 AM) 2.72 M/CMM *LOW* (03/03/16 4:10 AM) 3.41 M/CMM *LOW* (03/02/16 3:42 AM) RBC [4.70-6.10 M/CMM] 8.2 g/dL *LOW* (03/04/16 5:35 AM) 8.2 g/dL *LOW* (03/03/16 2:00 PM) 8.5 g/dL *LOW* (03/03/16 4:10 AM) Hgb [14.0-18.0 g/dL] 24.1 % *LOW* (03/04/16 5:35 AM) 25.0 % *LOW* (03/03/16 2:00 PM) 25.5 % *LOW* (03/03/16 4:10 AM) Hct [42.0-54.0 %] 94.6 fL *HI* (03/04/16 5:35 AM) 93.8 fL (03/03/16 4:10 AM) 92.3 fL (03/02/16 3:42 AM) MCV [80.0-94.0 fL] 32.1 pg *HI* (03/04/16 5:35 AM) 31.5 pg *HI* (03/03/16 4:10 AM) 31.1 pg *HI* (03/02/16 3:42 AM) MCH [27.0-31.0 pg] 34.0 g/dL (03/04/16 5:35 AM) 33.6 g/dL (03/03/16 4:10 AM) 33.8 g/dL (03/02/16 3:42 AM) MCHC [32.0-36.0 g/dL] 13.7 % (03/04/16 5:35 AM) 13.9 % (03/03/16 4:10 AM) 13.8 % (03/02/16 3:42 AM) RDW [11.5-14.5 %] 137 K/CMM (03/04/16 5:35 AM) 140 K/CMM (03/03/16 4:10 AM) 165 K/CMM (03/02/16 3:42 AM) Platelet [133-450 K/CMM] 8.8 fL (03/04/16 5:35 AM) 8.6 fL (03/03/16 4:10 AM) 8.5 fL (03/02/16 3:42 AM) MPV [7.4-10.4 fL] 70.0 % (03/04/16 5:35 AM) 87.5 % *HI* (03/02/16 3:42 AM) 87.1 % *HI* (03/02/16 12:59 AM) Segs [45.0-75.0 %] 16.1 % *LOW* (03/04/16 5:35 AM) 6.4 % *LOW* (03/02/16 3:42 AM) 5.4 % *LOW* (03/02/16 12:59 AM) Lymphocytes [20.0-40.0 %] 11.3 % (03/04/16 5:35 AM) 5.8 % (03/02/16 3:42 AM) 7.2 % (03/02/16 12:59 AM) Monocytes [2.0-12.0 %] 2.2 % (03/04/16 5:35 AM) 0.1 % (03/02/16 3:42 AM) 0.1 % (03/02/16 12:59 AM) Eosinophils [0.0-4.0 %] 0.4 % (03/04/16 5:35 AM) 0.2 % (03/02/16 3:42 AM) 0.2 % (03/02/16 12:59 AM) Basophils [0.0-1.0 %] 6.9 K/CMM (03/04/16 5:35 AM) 8.8 K/CMM *HI* (03/02/16 3:42 AM) 11.3 K/CMM *HI* (03/02/16 12:59 AM) Segs-Bands # [1.5-8.1 K/CMM] 1.6 K/CMM (03/04/16 5:35 AM) 0.6 K/CMM *LOW* (12/18/16 3:42 AM) 0.7 K/CMM *LOW* (03/02/16 12:59 AM) Lymphocytes # [1.0-5.5 K/CMM] 1.1 K/CMM *HI* (03/04/16 5:35 AM) 0.6 K/CMM (03/02/16 3:42 AM) 0.9 K/CMM *HI* (03/02/16 12:59 AM) Monocytes # [0.0-0.8 K/CMM] 0.2 K/CMM (03/04/16 5:35 AM) 0.4 K/CMM (03/01/16 6:05 PM) Eosinophils # [0.0-0.5 K/CMM] 15.1 seconds *HI* (03/01/16 6:05 PM) PT [12.0-14.7 seconds] 1.17 (03/01/16 6:05 PM) INR [0.85-1.17] 29.0 seconds (03/01/16 6:05 PM) PTT [22.9-35.8 seconds] Immunizations Given and Recorded Vaccine Date Status Refusal Reason pneumococcal 13-valent vaccine 10/30/15 Given Procedures Procedure Date Related Diagnosis Body Site Stent placement 10/29/15 Appendectomy; Control of epistaxis Tonsillectomy and adenoidectomy; age 12 or over Social History Social History Type Response Alcohol Never Smoking Status Never smoker; Ready to change: No; Exposure to Tobacco Smoke None; Cigarette Smoking Last 365 Days No; Reg Smoking Cessation Counseling No Assessment and Plan Extracted from: Title: Clinical Document Author: Rusty Espana MD Date: 03/04/16 Progress Note - Daily [facility] Completed: Feb, 10:54 by Rusty Espana MD RM: 334 - 1D, SE [id number], [id number] (: 1940) [facility]: [phone] Attending: Sanju Robles MDPhone: Service: Internal Medicine Reason for Admission: EPISTAXIS, RECURRENT, HYPERTENSION, UNCONTROLLED Working DRG: Epistaxis w/o CARE HOME Code status: Full Code [Ordered]Current diet: Isolation: None Documented Allergies: NKDA SUBJECTIVE No bleeding OBJECTIVE 24hr Labs 03/04 0535 Glucose Kyv390 H BUN16 Creatinine Lvl1.00 Sodium Yoj941 Potassium Lvl3.9 Chloride Ntn822 CO226 AGAP14.9 Calcium Lvl7.9 L eGFR74 Phosphorus3.4 WBC9.8 RBC2.55 L Hgb8.2 L Hct24.1 L MCV94.6 H MCH32.1 H MCHC34.0 RDW13.7 Qqoymowe042 MPV8.8 Segs70.0 Oxjtcmdnw80.3 Vcbjhvnhuhg20.1 L Eosinophils2.2 Basophils0.4 Segs-Bands #6.9 Lymphocytes #1.6 Monocytes #1.1 H Eosinophils #0.2 03/03 1400 Hgb8.2 L Hct25.0 L Simpson still necessary (Yes/No): Line still necessary (Yes/No): VitalsTmp(F)GazauYCOUOkF7TRD6 03/04 08:[id number]--- 03/04 04:[id number]--- 03/04 00:[id number]/[id number]--- 03/03 20:[id number]--- 03/03 16:[id number]--- 24 Hr Tmax: 99.2F (37.33c) at 03/04 00:00Vital Signs are the last 5 in the past 48 hours. DateWt(kg)Wt(lb)Ht(cm)Ht(in)Method 03/01 (initial) 64.09 141.00Estimated 72.72 68.00Stated I&ORecordInOutBal 02/2024hr Tot 15 0 15 02/1924hr Tot 985 0 985 Medications (14) Active Scheduled Meds (7): 03/02/16 amoxicillin-clavulanate (Augmentin 875 mg oral tablet) 1 tab PO DHEF37M 03/02/16 aspirin (aspirin 81 mg tablet, enteric coated) 81 mg PO Daily 03/02/16 atorvastatin 80 mg PO Bedtime 03/02/16 carvedilol 6.25 mg PO Q12H 03/03/16 clopidogrel (Plavix) 75 mg PO Daily 03/03/16 famotidine (Pepcid 20 mg oral tablet) 20 mg PO Bedtime 03/03/16 lactulose (lactulose 10 g/15 mL oral syrup) 10 gm PO BID Unscheduled Meds: None PRN Meds (6): 03/01/16 acetaminophen 650 mg PO Q4H 03/01/16 docusate 100 mg PO BID 03/01/16 metoclopramide (Reglan) 10 mg IVP Q6H 03/01/16 morphine Sulfate 2 mg IVP Q4H 03/01/16 ondansetron 4 mg IVP Q6H 03/01/16 sodium chloride (Saline Flush 0.9%) 10 ml IVP PRN One Time Meds (1): 03/03/16 (Completed) potassium phosphate-sodium phosphate (potassium phosphate- sodium phosphate 250 mg-280 mg-160 mg oral powder for reconstitution) 1 pkt PO ONCE Continuous Infusions: None ASSESSMENT & EXAM General: Well developed well nourished NAD Head: Normocephalic atraumatic Eyes: PERRL EOMI Ears: Pinna symmetric TM Normal bilaterally. No perforations Nose: Mucosa pink and moist. Turbinates nonedematous nonerythematous. No purulent discharge. No turbinate hypertrophy Packing in place on the right. NO bleeding anteriorly or posteriorly. OC/OP: Mucosa pink and moist. Tongue mobile. Good mobility. No lesions or ulcerations. Tonsils 2+ bilaterally. No edema of soft palate. Neck: Supple nontender, no lymphadenopathy. No masses. Extremities: No cyanosis. Abdomen: Soft nontender, good bowel sounds. Respiratory: CTA bilaterally Cardiovascular: RRR No murmurs. Skin: No rashes Neurologic: Alert and oriented x3. No gross deficits PLAN & TREATMENT Epistaxis. No bleeding. He is stable from nosebleed standpoint. Will continue with the pack it is dissolveable. No nose blowing for 3 weeks. Sneeze with the mouth open. Will need to continue on the antibiotics with packing in place for the next 7 days. Can follow up in outpatient setting in 3 weeks. DIAGNOSES & PROBLEMS Ready for Discharge (Yes/No)? TEACHING ATTESTATION Extracted from: Title: Clinical Document Author: Daryl Hauser MD Date: 03/02/16 Daryl Hauser M.D. [facility] REASON FOR ER VISIT: CAD and multiple stents; Epistaxis HISTORY OF PRESENT ILLNESS: Deny Barnes is a 74-year-old male who was having epistaxis after dinner last night. His Friend called me and I had advised them to go to [facility] and have the ER call me once they reach there. I spoke to ER Doctor, Dr Silveira and he was going to pack his nose and according to him patient might be discharged. Eventually he was admitted and I was consulted. When I called back Dr Silveira, patient's epistaxis did not stop and he was going to go to OR for his epistaxis. He was initially admitted under Dr Chris Choi and seen by Hospitalist. Patient's PCP is Dr Sanju Robles and admission was changed to him. I went to see him but he was already in OR. He did not have chest heaviness. No PND, no orthopnea, no palpitation, no dizziness, no loss of consciousness, no abdominal pain, no nausea, no vomiting, no diarrhea, no localizing weakness of any extremities, no difficulty in speech, no cough, no fever, no headache. No ear discharge, no rash. No leg swelling. REVIEW OF SYSTEMS: All done and pertinent ones are above. PAST MEDICAL HISTORY: 1. Mixed hyperlipidemia. 2. Hypoandrogenism. 3. CAD:NANCY to RCA for Inferior STEMI in 10/29 and NANCY to LAD x 2 in 11/2015 HOME MEDICATIONS: Pravastatin and AndroGel. ALLERGIES: No known drug allergies. HABITS: Nonsmoker, nonalcoholic, no recreational drug abuse. FAMILY HISTORY: Parents have hypertension, but no history of premature CAD or sudden cardiac . PAST SURGICAL HISTORY: Appendectomy and tonsillectomy. PHYSICAL EXAMINATION: VITAL SIGNS: VitalsTmp(F)Tmp(C)[id number] 03/02 07:[id number]------ 03/02 06:00 126/65---92--97------ 03/02 05:30 121/72---90--97------ 03/02 05:00 129/67---88--97------ 03/02 04:30 121/68---86--97------ NECK: No JVD. HEENT: EOMI; right nose packing + HEART: S1, S2 normal, no murmur, no rub, no gallop. CHEST: Bilateral air entry present. No wheezing, no crepitations. ABDOMEN: Bowel sounds present, nontender, nondistended. NEUROLOGIC: Alert, awake, oriented x 3, no obvious lateralization. EXTREMITIES: No edema. Labs & Diagnostic Work up: Labs (Last four charted values) WBC 10.1(MAR 02)H 13.0(MAR 02)7.2(MAR 01) Hgb L 10.6(MAR 02)L 10.7(MAR 02)14.3(MAR 01) Hct L 31.5(MAR 02)L 32.5(MAR 02)L 41.5(MAR 01) Plt 165(MAR 02)166(MAR 02)184(MAR 01) Na H 146(MAR 02)144(MAR 01) K 4.1(MAR 02)4.0(MAR 01) CO2 26(MAR 02)26(MAR 01) Cl H 111(MAR 02)109(MAR 01) Cr 1.30(MAR 02)1.10(MAR 01) BUN H 42(MAR 02)H 26(MAR 01) Glucose Random H 159(MAR 02)H 118(MAR 01) Mg 2.3(MAR 02) Phos 2.7(MAR 02) Ca L 7.9(MAR 02)8.7(MAR 01) PT H 15.1(MAR 01) INR 1.17(MAR 01) PTT 29.0(MAR 01) Medications Medications (12) Active Scheduled: (4) amoxicillin-clavulanate 875-125 mg TAB 1 tab, PO, [id number] aspirin 81 mg, PO, Daily atorvastatin 40mg tab 80 mg 2 tab, PO, Bedtime carvedilol 3.125 mg TAB 3.125 mg 1 tab, PO, Q12H Continuous: (2) D5NS 1,000 mL 1,000 mL, IV, 125 ml/hr D5W 1/2NS 1,000 mL 1,000 mL, IV, 100 ml/hr PRN: (6) acetaminophen 325 mg TABLET 650 mg 2 tab, PO, Q4H docusate sodium 100 mg CAP 100 mg 1 cap, PO, BID metoclopramide 10 mg/2 ml VL 10 mg 2 mL, IVP, Q6H MORPhine sulfate PF 2 mg/ml CARP 2 mg 1 mL, IVP, Q4H ondansetron 4mg/2mL INJ SYRINGE 4 mg 2 mL, IVP, Q6H sodium chloride 0.9% 10 ml flush syr BD 10 ml, IVP, PRN Assessment/Plan : -Epistaxis requirng right nose packing by ENT -Resume ASA EC 81mg po daily and if remains stabale switch to plavix 75 mg po daily -rest of MEDS as above -DC IVF
--- OUTSIDE RECORDS SUMMARY | 2018-04-13 05:11 | XMS REPORT | Summary of Care ---
Author Author [facility] Organization [facility] Address Unknown Phone Unavailable Encounter CAROLYN Reyes(CULLEN) [id number] Date(s): 12/10/15 - 12/10/15 [facility] [address] [place] [address]- Discharge Disposition: Home or Self Care Attending Physician: Daryl Hauser MD Referring Physician: Daryl Hauser MD Vital Signs Most recent to 1 2 oldest [Reference Range]: Height 172.72 cm (12/05/15 1:31 PM) Temperature Oral 97.9 DegF [96.4-99.1 DegF] (12/05/15 1:32 PM) Blood Pressure 139/68 mmHg 157/74 mmHg [90-140/60-90 mmHg] (12/10/15 7:20 PM) *HI* (12/05/15 1:32 PM) Respiratory Rate 16 BRMIN 15 BRMIN [14-20 BRMIN] (12/10/15 7:20 PM) (12/05/15 1:32 PM) Peripheral Pulse 86 bpm 70 bpm Rate [60-100 bpm] (12/10/15 7:20 PM) (12/05/15 1:32 PM) Weight 62.273 kg (12/05/15 1:31 PM) Body Mass Index 20.87 m2 (12/05/15 1:31 PM) Problem List Condition Effective Dates Status Health Status Informant Chest Active pain(Confirmed) CAD (coronary artery Active disease)(Confirmed) Hyperlipidemia(Confi Active rmed) Hypertension(Confirm Active ed) 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 ) Testosterone(Confirm Active ed) Allergies, Adverse Reactions, Alerts Substance Reaction Severity Status NKDA Active Medications aspirin 81 mg tablet, enteric coated 81 mg, 1 tab, Route: PO, Drug form: ECTAB, Daily, Dosing Weight 62.273, kg, Star t date: 12/11/15 9:00:00 CDT, Duration: 30 day, Stop date: 01/09/16 9:00:00 CDT Notes: Do not crush or chew.(Same As: Ecotrin) Start Date: 12/11/15 Stop Date: 12/10/15 Status: Canceled atorvastatin 80 mg, 2 tab, Route: PO, Drug form: TAB, Bedtime, Dosing Weight 62.273, kg, Star t date: 12/10/15 21:00:00 CDT, Duration: 30 day, Stop date: 01/08/16 21:00:00 CD T Notes: (Same as: Lipitor) Start Date: 12/10/15 Stop Date: 12/10/15 Status: Discontinued carvedilol 3.125 mg, 1 tab, Route: PO, Drug form: TAB, Q12H, Dosing Weight 62.273, kg, Star t date: 12/10/15 21:00:00 CDT, Duration: 30 day, Stop date: 01/09/16 9:00:00 CDT Notes: Give with food. (Same As: Coreg) Start Date: 12/10/15 Stop Date: 12/10/15 Status: Discontinued hydrALAZINE 10 mg, 0.5 mL, Route: IV, Drug form: INJ, Q4H, Dosing Weight 62.273, kg, PRN Hyp ertension, Priority: Routine, Start date: 12/10/15 13:01:00 CDT, Duration: 30 da y, Stop date: 01/09/16 13:00:00 CDT Notes: (Same as: Apresoline)Push over 5 minutes Start Date: 12/10/15 Stop Date: 12/10/15 Status: Discontinued morphine Sulfate 2 mg, 1 mL, Route: IVP, Drug form: INJ, Q4H, Dosing Weight 62.273, kg, PRN Pain Score 6-10, Priority: Routine, Start date: 12/10/15 13:02:00 CDT, Duration: 30 d ay, Stop date: 01/09/16 13:01:00 CDT Notes: (Same as:MORPhine Sulfate) Start Date: 12/10/15 Stop Date: 12/10/15 Status: Discontinued prasugrel 10 mg, 1 tab, Route: PO, Drug form: TAB, Daily, Dosing Weight 62.273, kg, Start date: 12/11/15 9:00:00 CDT, Duration: 30 day, Stop date: 01/09/16 9:00:00 CDT Notes: Same as Effient For patients < 75 years old, > 60kg, without history of TIA/Ischemic stroke and without likely bypass surgery Start Date: 12/11/15 Stop Date: 12/10/15 Status: Canceled sodium chloride 0.9% 1000 ml INJ 1,000 mL 1,000 mL, Rate: 100 ml/hr, Infuse over: 10 hr, Route: IV, Dosing Weight 62.273 k g, Total Volume: 1,000, Start date: 12/10/15 12:01:00 CDT, Duration: 30 day, Sto p date: 01/09/16 12:00:00 CDT Start Date: 12/10/15 Stop Date: 12/10/15 Status: Discontinued Zofran 4 mg, 2 mL, Route: IVP, Drug form: INJ, Q8H, Dosing Weight 62.273, kg, PRN Nause a, Start date: 12/10/15 13:02:00 CDT, Duration: 30 day, Stop date: 01/09/16 13:0 1:00 CDT Notes: (Same as: Zofran) MEDICATION WASTE Product Size: 4 mgProduct Was [place]: ___ mg Start Date: 12/10/15 Stop Date: 12/10/15 Status: Discontinued Results ELECTROLYTES Most recent to 1 oldest [Reference Range]: Sodium Lvl [135-145 139 mEq/L mEq/L] (12/05/15 1:24 PM) Potassium Lvl 4.0 mEq/L [3.5-5.1 mEq/L] (12/05/15 1:24 PM) Chloride Lvl [95-109 107 mEq/L mEq/L] (12/05/15 1:24 PM) CO2 [24-32 mEq/L] 27 mEq/L (12/05/15 1:24 PM) AGAP [10.0-20.0 9.0 mEq/L mEq/L] *LOW* (12/05/15 1:24 PM) CHEM PANEL Most recent to 1 oldest [Reference Range]: Creatinine Lvl 0.93 mg/dL [0.50-1.40 mg/dL] (12/05/15 1:24 PM) eGFR 81 mL/min/1.73m2 1 *NA* (12/05/15 1:24 PM) BUN [7-22 mg/dL] 21 mg/dL (12/05/15 1:24 PM) Glucose Lvl [70-99 108 mg/dL mg/dL] *HI* (12/05/15 1:24 PM) Calcium Lvl 8.6 mg/dL [8.5-10.5 mg/dL] (12/05/15 1:24 PM) 1Result Comment: The eGFR is calculated using [...] mul tiplied by the estimated BMI. HEMATOLOGY Most recent to 1 oldest [Reference Range]: WBC [3.7-10.4 K/CMM] 6.2 K/CMM (12/05/15 1:24 PM) RBC [4.70-6.10 5.00 M/CMM M/CMM] (12/05/15 1:24 PM) Hgb [14.0-18.0 g/dL] 15.0 g/dL (12/05/15 1:24 PM) Hct [42.0-54.0 %] 45.6 % (12/05/15 1:24 PM) MCV [80.0-94.0 fL] 91.3 fL (12/05/15 1:24 PM) MCH [27.0-31.0 pg] 30.0 pg (12/05/15 1:24 PM) MCHC [32.0-36.0 32.8 g/dL g/dL] (12/05/15 1:24 PM) RDW [11.5-14.5 %] 14.1 % (12/05/15 1:24 PM) Platelet [133-450 166 K/CMM K/CMM] (12/05/15 1:24 PM) MPV [7.4-10.4 fL] 8.5 fL (12/05/15 1:24 PM) Segs [45.0-75.0 %] 62.8 % (12/05/15 1:24 PM) Lymphocytes 18.5 % [20.0-40.0 %] *LOW* (12/05/15 1:24 PM) Monocytes [2.0-12.0 11.7 % %] (12/05/15 1:24 PM) Eosinophils [0.0-4.0 6.5 % %] *HI* (12/05/15 1:24 PM) Basophils [0.0-1.0 0.5 % %] (12/05/15 1:24 PM) Segs-Bands # 3.9 K/CMM [1.5-8.1 K/CMM] (12/05/15 1:24 PM) Lymphocytes # 1.1 K/CMM [1.0-5.5 K/CMM] (12/05/15 1:24 PM) Monocytes # [0.0-0.8 0.7 K/CMM K/CMM] (12/05/15 1:24 PM) Eosinophils # 0.4 K/CMM [0.0-0.5 K/CMM] (12/05/15 1:24 PM) PT [12.0-14.7 14.1 seconds seconds] (12/05/15 1:24 PM) INR [0.85-1.17] 1.06 (12/05/15 1:24 PM) PTT [22.9-35.8 28.1 seconds seconds] (12/05/15 1:24 PM) Immunizations Given and Recorded Vaccine Date Status Refusal Reason pneumococcal 13-valent vaccine 10/30/15 Given Procedures Procedure Date Related Diagnosis Body Site Stent placement 10/29/15 Appendectomy; Tonsillectomy and adenoidectomy; age 12 or over Social History Social History Type Response Alcohol Never Smoking Status Never smoker; Exposure to Tobacco Smoke None; Cigarette Smoking Last 365 Days No; Reg Smoking Cessation Counseling No Assessment and Plan No data available for this section
--- OUTSIDE RECORDS SUMMARY | 2018-04-13 05:11 | XMS REPORT | Continuity of Care Document ---
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, LUMBAR REGION Active 07/27/2017 [facility] LUMBAGO Active 07/21/2017 [facility] LUMAGO Active 07/21/2017 [facility] HIP PAIN Active 07/16/2017 [facility] NOSE BLEED Active 03/01/2016 [facility] EPISTAXIS, RECURRENT, HYPERTENSION, UNCO Active 03/01/2016 [facility] UNK Active 11/15/2015 [facility] STEMI Active 10/29/2015 [facility] SENT, ABN LABS Active 10/29/2015 [facility] Myocardial infarction Resolved 10/27/2015 Problem 08/29/2017 [facility] Chest pain Active Problem 08/29/2017 [facility] CAD (<span ID="[id number]">Confirmed</span>) Active Problem 08/29/2017 [facility] Hyperlipidemia Active Problem 08/29/2017 [facility] Hypertension Active Problem 08/29/2017 [facility] Testosterone Active Problem 08/29/2017 [facility] SUBSEQUENT STEMI OF ANTERIOR WALL Active [facility] EPISTAXIS Active [facility] Medications Medication Details Route Status Patient Instructions Ordering Provider Order Date Source ferrous sulfate 325 MG Oral Tablet [Feosol] 325 mg, 1 tab, Route: PO, Drug form: ECTAB, Daily, Dosing Weight 64.091, kg, Start date: 03/05/16 9:00:00 SENIOR TALENT MANAGEMENT CONSULTANT, Duration: 30 day, Stop date: 04/03/16 9:00:00 CSTNotes: Give with food. "Do Not Crush" No Longer Active 03/05/2016 [facility] ferrous sulfate 325 MG Oral Tablet [Feosol] 325 mg=1 tab, PO, Daily, # 30 tab, 0 Refill(s) Active 03/04/2016 [facility] Amoxicillin 875 MG / Clavulanate 125 MG Oral Tablet [Augmentin 875-mg] 1 tab, PO, [id number], # 10 tab, 0 Refill(s) Active 03/04/2016 [facility] clopidogrel 75 mg oral tablet 75 mg=1 tab, PO, Daily, # 30 tab, 1 Refill(s) Active 03/04/2016 [facility] carvedilol 3.125 mg oral tablet 6.25 mg=2 tab, PO, Q12H, # 120 tab, 1 Refill(s) Active 03/04/2016 [facility] atorvastatin 40 mg oral tablet 80 mg=2 tab, PO, Bedtime, 0 Refill(s) Active 03/04/2016 [facility] aspirin 81 mg tablet, enteric coated 81 mg=1 tab, PO, Daily, 0 Refill(s) Active 03/04/2016 [facility] Famotidine 20 MG Oral Tablet [Pepcid] 20 mg, 1 tab, Route: PO, Drug form: TAB, Bedtime, Dosing Weight 64.091, kg, Start date: 03/03/16 21:00:00 SENIOR TALENT MANAGEMENT CONSULTANT, Duration: 30 day, Stop date: 04/01/16 21:00:00 CSTNotes: (Same as: Pepcid) No Longer Active 03/04/2016 [facility] Lactulose 667 MG/ML Oral Solution 10 gm, 15 mL, Route: PO, Drug Form: SYRP, Dosing Weight 64.091, kg, BID, Start date: 03/03/16 17:00:00 SENIOR TALENT MANAGEMENT CONSULTANT, Duration: 30 day, Stop date: 04/02/16 9:00:00 CSTNotes: (Same as:Chronulac) No Longer Active 03/03/2016 [facility] Plavix 75 mg, 1 tab, Route: PO, Drug form: TAB, Daily, Dosing Weight 64.091, kg, Priority: NOW, Start date: 03/03/16 14:33:00 SENIOR TALENT MANAGEMENT CONSULTANT, Duration: 30 day, Stop date: 04/02/16 9:00:00 CSTNotes: (Same As: Plavix) No Longer Active 03/03/2016 [facility] potassium phosphate-sodium phosphate 250 mg-280 mg-160 mg oral powder for reconstitution 1 pkt, Route: PO, Drug Form: PDR/REC, Dosing Weight 64.091, kg, ONCE, Start date: 03/03/16 9:23:00 SENIOR TALENT MANAGEMENT CONSULTANT, Stop date: 03/03/16 9:23:00 CSTNotes: (Same as: Phos-NaK) Each 1.5 gm pkt has 250mg phosphorous. Mix w/2.5oz water and stir. Inactive 03/03/2016 [facility] atorvastatin 80 mg, 2 tab, Route: PO, Drug form: TAB, Bedtime, Dosing Weight 64.091, kg, Start date: 03/02/16 21:00:00 SENIOR TALENT MANAGEMENT CONSULTANT, Duration: 30 day, Stop date: 03/31/16 21:00:00 CSTNotes: (Same as: Lipitor) No Longer Active 03/03/2016 [facility] Zithromax 500 mg, Route: IVPB, [id number], Dosing Weight 64.091, kg, Start date: 03/02/16 11:00:00 SENIOR TALENT MANAGEMENT CONSULTANT, Duration: 30 day, Stop date: 03/31/16 11:00:00 CSTNotes: (Same As: Zithromax IV) No Longer Active 03/02/2016 [facility] aspirin 81 mg tablet, enteric coated 81 mg, 1 tab, Route: PO, Drug form: ECTAB, Daily, Dosing Weight 64.091, kg, Priority: NOW, Start date: 03/02/16 10:14:00 SENIOR TALENT MANAGEMENT CONSULTANT, Duration: 30 day, Stop date: 04/01/16 9:00:00 CSTNotes: Do not crush or chew. (Same As: Ecotrin) No Longer Active 03/02/2016 [facility] carvedilol 6.25 mg, 2 tab, Route: PO, Drug form: TAB, Q12H, Dosing Weight 64.091, kg, Start date: 03/02/16 9:00:00 SENIOR TALENT MANAGEMENT CONSULTANT, Stop date: 03/31/16 21:00:00 CSTNotes: Give with food. (Same As: Coreg) No Longer Active 03/02/2016 [facility] Amoxicillin 875 MG / Clavulanate 125 MG Oral Tablet [Augmentin 875-mg] 1 tab, Route: PO, Drug Form: TAB, Dosing Weight 64.091, kg, [id number], Start date: 03/02/16 2:00:00 SENIOR TALENT MANAGEMENT CONSULTANT, Duration: 30 day, Stop date: 03/31/16 14:00:00 CSTNotes: With food. (Same as: Augmentin 875) No Longer Active 03/02/2016 [facility] ondansetron (ANES) Route: IV, Drug form: INJ, ONCE, Stop date: 03/02/16 0:57:00 SENIOR TALENT MANAGEMENT CONSULTANT Inactive 03/02/2016 [facility] EPINEPHrine (ANES) Route: IV, Drug form: INJ, ONCE, Stop date: 03/02/16 0:49:00 SENIOR TALENT MANAGEMENT CONSULTANT Inactive 03/02/2016 [facility] succinylcholine (ANES) Route: IV, Drug form: INJ, ONCE, Stop date: 03/02/16 0:19:00 SENIOR TALENT MANAGEMENT CONSULTANT Inactive 03/02/2016 [facility] propofol (ANES) Route: IV, Drug form: INJ, ONCE, Stop date: 03/02/16 0:19:00 SENIOR TALENT MANAGEMENT CONSULTANT Inactive 03/02/2016 [facility] fentaNYL (ANES) Route: IV, Drug form: INJ, ONCE, Stop date: 03/02/16 0:14:00 SENIOR TALENT MANAGEMENT CONSULTANT Inactive 03/02/2016 [facility] phenylephrine (ANES) Route: IV, Drug form: INJ, ONCE, Stop date: 03/02/16 0:14:00 SENIOR TALENT MANAGEMENT CONSULTANT Inactive 03/02/2016 [facility] norepinephrine (ANES) Route: IV, Drug form: INJ, ONCE, Stop date: 03/02/16 0:14:00 SENIOR TALENT MANAGEMENT CONSULTANT Inactive 03/02/2016 [facility] lidocaine (ANES) Route: IV, Drug form: INJ, ONCE, Stop date: 03/02/16 0:14:00 SENIOR TALENT MANAGEMENT CONSULTANT Inactive 03/02/2016 [facility] sodium chloride 0.9% 1000 ml INJ (ANES) Route: IV, Total Volume: 1,000, Start date: 03/01/16 23:55:00 SENIOR TALENT MANAGEMENT CONSULTANT, Stop date: 03/02/16 0:55:00 SENIOR TALENT MANAGEMENT CONSULTANT No Longer Active 03/02/2016 [facility] Morphine 2 mg, Route: IVP, Q5Min, Dosing Weight 64.091, kg, PRN Pain Score 4-6, Start date: 03/01/16 23:48:00 SENIOR TALENT MANAGEMENT CONSULTANT, Duration: 5 doses or times, Stop date: Limited # of times No Longer Active 03/02/2016 [facility] Promethazine 6.25 mg, Route: IVPB, ONCE, Dosing Weight 64.091, kg, PRN Nausea & Vomiting, Start date: 03/01/16 23:48:00 SENIOR TALENT MANAGEMENT CONSULTANT No Longer Active 03/02/2016 [facility] Flumazenil 0.2 mg, Route: IVP, PRN, Dosing Weight 64.091, kg, PRN Benzodiazepine Reversal, Initial dose, Start date: 03/01/16 23:48:00 SENIOR TALENT MANAGEMENT CONSULTANT, Duration: 30 day, Stop date: 03/31/16 23:47:00 SENIOR TALENT MANAGEMENT CONSULTANT No Longer Active 03/02/2016 [facility] Fentanyl 50 microgram, Route: IVP, Q5Min, Dosing Weight 64.091, kg, PRN Pain Score 7-10, Priority: Routine, Start date: 03/01/16 23:48:00 SENIOR TALENT MANAGEMENT CONSULTANT, Duration: 2 doses or times, Stop date: Limited # of times No Longer Active 03/02/2016 [facility] Naloxone 0.4 mg, Route: IVP, Q2MIN, Dosing Weight 64.091, kg, PRN Narcotic Reversal, Start date: 03/01/16 23:48:00 SENIOR TALENT MANAGEMENT CONSULTANT, Duration: 8 doses or times, Stop date: Limited # of times No Longer Active 03/02/2016 [facility] Hydromorphone 0.5 mg, Route: IVP, Q5Min, Dosing Weight 64.091, kg, PRN Pain Score 7-10, Start date: 03/01/16 23:48:00 SENIOR TALENT MANAGEMENT CONSULTANT, Duration: 4 doses or times, Stop date: Limited # of times No Longer Active 03/02/2016 [facility] Ondansetron 4 mg, Route: IVP, ONCE, Dosing Weight 64.091, kg, PRN Nausea & Vomiting, Start date: 03/01/16 23:48:00 SENIOR TALENT MANAGEMENT CONSULTANT No Longer Active 03/02/2016 [facility] Acetaminophen 1,000 mg, Route: IVPB, Drug form: INJ, ONCE, Dosing Weight 64.091, kg, PRN Pain Score 1-3, Start date: 03/01/16 23:48:00 SENIOR TALENT MANAGEMENT CONSULTANT, Duration: 1 doses or times, Stop date: Limited # of times No Longer Active 03/02/2016 [facility] D5W 1/2NS 1000 ml INJ (ANES) Route: IV, Total Volume: 1,000, Start date: 03/01/16 23:00:00 SENIOR TALENT MANAGEMENT CONSULTANT, Stop date: 03/02/16 0:00:00 SENIOR TALENT MANAGEMENT CONSULTANT No Longer Active 03/02/2016 [facility] Reglan 10 mg, 2 mL, Route: IVP, Drug form: INJ, Q6H, Dosing Weight 64.091, kg, PRN Nausea, Start date: 03/01/16 21:54:00 SENIOR TALENT MANAGEMENT CONSULTANT, Duration: 30 day, Stop date: 03/31/16 21:53:00 CSTNotes: (Same as: Reglan) No Longer Active 03/02/2016 [facility] D5NS 1,000 mL 1,000 mL, Rate: 125 ml/hr, Infuse over: 8 hr, Route: IV, Dosing Weight 64.091 kg, Total Volume: 1,000, Start date: 03/01/16 21:24:00 SENIOR TALENT MANAGEMENT CONSULTANT, Duration: 30 day, Stop date: 03/31/16 21:23:00 SENIOR TALENT MANAGEMENT CONSULTANT No Longer Active 03/02/2016 [facility] Saline Flush 0.9% 10 ml, Route: IVP, Drug Form: INJ, Dosing Weight 64.091, kg, PRN, PRN Line Flush, Start date: 03/01/16 21:24:00 SENIOR TALENT MANAGEMENT CONSULTANT, Duration: 30 day, Stop date: 03/31/16 21:23:00 CSTNotes: (Same as: BD Posiflush) No Longer Active 03/02/2016 [facility] Acetaminophen 650 mg, 2 tab, Route: PO, Drug form: TAB, Q4H, Dosing Weight 64.091, kg, PRN Pain 1-3/Temp > 100.4 F, Start date: 03/01/16 21:24:00 SENIOR TALENT MANAGEMENT CONSULTANT, Duration: 30 day, Stop date: 03/31/16 21:23:00 CSTNotes: Do not exceed 4 gm/day. (Same as: Tylenol) No Longer Active 03/02/2016 [facility] Morphine 2 mg, 1 mL, Route: IVP, Drug form: INJ, Q4H, Dosing Weight 64.091, kg, PRN Pain Score 7-10, Start date: 03/01/16 21:24:00 SENIOR TALENT MANAGEMENT CONSULTANT, Duration: 30 day, Stop date: 03/31/16 21:23:00 CSTNotes: (Same as:MORPhine Sulfate) No Longer Active 03/02/2016 [facility] Ondansetron 4 mg, 2 mL, Route: IVP, Drug form: INJ, Q6H, Dosing Weight 64.091, kg, PRN Nausea & Vomiting, Start date: 03/01/16 21:24:00 SENIOR TALENT MANAGEMENT CONSULTANT, Duration: 30 day, Stop date: 03/31/16 21:23:00 CSTNotes: (Same as: Zofran) MEDICATION WASTE Product Size: 4 mg Product Wasted: ___ mg No Longer Active 03/02/2016 [facility] Docusate 100 mg, 1 cap, Route: PO, Drug form: CAP, BID, Dosing Weight 64.091, kg, PRN Constipation, Start date: 03/01/16 21:24:00 SENIOR TALENT MANAGEMENT CONSULTANT, Duration: 30 day, Stop date: 03/31/16 21:23:00 CSTNotes: (Same as: Colace) (Do Not Crush) No Longer Active 03/02/2016 [facility] D5W 1/2NS 1,000 mL 1,000 mL, Rate: 100 ml/hr, Infuse over: 10 hr, Route: IV, Dosing Weight 64.091 kg, Total Volume: 1,000, Start date: 03/01/16 20:51:00 SENIOR TALENT MANAGEMENT CONSULTANT, Duration: 30 day, Stop date: 03/31/16 20:50:00 SENIOR TALENT MANAGEMENT CONSULTANT No Longer Active 03/02/2016 [facility] Zofran 4 mg, 2 mL, Route: IVP, Drug form: INJ, ONCE, Dosing Weight 64.091, kg, Start date: 03/01/16 20:39:00 SENIOR TALENT MANAGEMENT CONSULTANT, Stop date: 03/01/16 20:39:00 CSTNotes: (Same as: Zofran) MEDICATION WASTE Product Size: 4 mg Product Wasted: ___ mg Inactive 03/02/2016 [facility] prasugrel 10 mg, 1 tab, Route: PO, Drug form: TAB, Daily, Dosing Weight 62.273, kg, Start date: 12/11/15 9:00:00 CDT, Duration: 30 day, Stop date: 01/09/16 9:00:00 CDTNotes: Same as Effient For patients 60kg, w ithout history of TIA/Ischemic stroke and without likely bypass surgery No Longer Active 12/11/2015 [facility] Aspirin 81 MG Enteric Coated Tablet 81 mg, 1 tab, Route: PO, Drug form: ECTAB, Daily, Dosing Weight 62.273, kg, Start date: 12/11/15 9:00:00 CDT, Duration: 30 day, Stop date: 01/09/16 9:00:00 CDTNotes: Do not crush or chew. (Same As: Ecotrin) No Longer Active 12/11/2015 [facility] carvedilol 3.125 mg, 1 tab, Route: PO, Drug form: TAB, Q12H, Dosing Weight 62.273, kg, Start date: 12/10/15 21:00:00 CDT, Duration: 30 day, Stop date: 01/09/16 9:00:00 CDTNotes: Give with food. (Same As: Coreg) Inactive 12/11/2015 [facility] atorvastatin 80 mg, 2 tab, Route: PO, Drug form: TAB, Bedtime, Dosing Weight 62.273, kg, Start date: 12/10/15 21:00:00 CDT, Duration: 30 day, Stop date: 01/08/16 21:00:00 CDTNotes: (Same as: Lipitor) Inactive 12/11/2015 [facility] Morphine 2 mg, 1 mL, Route: IVP, Drug form: INJ, Q4H, Dosing Weight 62.273, kg, PRN Pain Score 6-10, Priority: Routine, Start date: 12/10/15 13:02:00 CDT, Duration: 30 day, Stop date: 01/09/16 13:01:00 CDTNotes: (Same as:MORPhine Sulfate) Inactive 12/10/2015 [facility] Zofran 4 mg, 2 mL, Route: IVP, Drug form: INJ, Q8H, Dosing Weight 62.273, kg, PRN Nausea, Start date: 12/10/15 13:02:00 CDT, Duration: 30 day, Stop date: 01/09/16 13:01:00 CDTNotes: (Same as: Zofran) MEDICATION WASTE Product Size: 4 mg Product Wasted: ___ mg Inactive 12/10/2015 [facility] Hydralazine 10 mg, 0.5 mL, Route: IV, Drug form: INJ, Q4H, Dosing Weight 62.273, kg, PRN Hypertension, Priority: Routine, Start date: 12/10/15 13:01:00 CDT, Duration: 30 day, Stop date: 01/09/16 13:00:00 CDTNotes: (Same as: Apresoline) Push over 5 minutes Inactive 12/10/2015 [facility] sodium chloride 0.9% 1000 ml INJ 1,000 mL 1,000 mL, Rate: 100 ml/hr, Infuse over: 10 hr, Route: IV, Dosing Weight 62.273 kg, Total Volume: 1,000, Start date: 12/10/15 12:01:00 CDT, Duration: 30 day, Stop date: 01/09/16 12:00:00 CDT Inactive 12/10/2015 [facility] atorvastatin 80 mg oral tablet 80 mg=1 tab, PO, Bedtime, # 30 tab, 0 Refill(s) Active 10/31/2015 [facility] prasugrel 10 mg oral tablet 10 mg=1 tab, PO, Daily, # 30 tab, 0 Refill(s) Active 10/31/2015 [facility] Docusate Sodium 100 MG Oral Capsule [Colace] 100 mg=1 cap, PO, BID, to prevent constipation., # 60 cap, 0 Refill(s) Active 10/31/2015 [facility] carvedilol 3.125 mg oral tablet 3.125 mg=1 tab, PO, Q12H, # 60 tab, 0 Refill(s) Active 10/31/2015 [facility] Aspirin 81 MG Enteric Coated Tablet 81 mg=1 tab, PO, Daily, # 30 tab, 0 Refill(s) Active 10/31/2015 [facility] Coreg 3.125 mg, 1 tab, Route: PO, Drug form: TAB, Q12H, Dosing Weight 63.182, kg, Start date: 10/30/15 10:00:00 CDT, Duration: 30 day, Stop date: 11/29/15 9:00:00 CDTNotes: Give with food. (Same As: Coreg) No Longer Active 10/30/2015 [facility] Streptococcus pneumoniae serotype 1 capsular antigen diphtheria [id number] protein conjugate vaccine / Streptococcus pneumoniae serotype 14 capsular antigen diphtheria [id number] protein conjugate vaccine / Streptococcus pneumoniae serotype 18C capsular antigen d 0.5 mL, Route: IM, Drug Form: INJ, Daily, Start date: 10/30/15 9:00:00 CDT, Duration: 1 doses or times, Stop date: 10/30/15 9:00:00 CDTNotes: Lightly roll vial (DO NOT SHAKE) before administration. (Same as: Prevnar 13) Inactive 10/30/2015 [facility] Aspirin 81 MG Enteric Coated Tablet 81 mg, 1 tab, Route: PO, Drug form: ECTAB, Daily, Dosing Weight 63.182, kg, Start date: 10/30/15 9:00:00 CDT, Duration: 30 day, Stop date: 11/28/15 9:00:00 CDTNotes: Do not crush or chew. (Same As: Ecotrin) No Longer Active 10/30/2015 [facility] Docusate Sodium 100 MG Oral Capsule [Colace] 100 mg, 1 cap, Route: PO, Drug form: CAP, BID, Dosing Weight 63.182, kg, Start date: 10/30/15 9:00:00 CDT, Duration: 30 day, Stop date: 11/28/15 17:00:00 CDTNotes: (Same as: Colace) (Do Not Crush) No Longer Active 10/30/2015 [facility] Effient 10 mg, 1 tab, Route: PO, Drug form: TAB, Daily, Dosing Weight 63.182, kg, Priority: Routine, Start date: 10/30/15 9:00:00 CDT, Duration: 30 day, Stop date: 11/28/15 9:00:00 CDTNotes: Same as Effient For patients 60kg, without history of TIA/Ischemic stroke and without likely bypass surgery No Longer Active 10/30/2015 [facility] Lipitor 80 mg, 2 tab, Route: PO, Drug form: TAB, Bedtime, Dosing Weight 63.182, kg, Start date: 10/29/15 21:00:00 CDT, Duration: 30 day, Stop date: 11/27/15 21:00:00 CDTNotes: (Same as: Lipitor) No Longer Active 10/30/2015 [facility] pravastatin 10 mg oral tablet 10 mg=1 tab, PO, Bedtime, 0 Refill(s) No Longer Active 10/29/2015 [facility] 60 ACTUAT Testosterone 12.5 MG/ACTUAT Topical Gel [Androgel] 4 pumps, TOP, QAM, 0 Refill(s) No Longer Active 10/29/2015 [facility] Hydralazine 10 mg, 0.5 mL, Route: IV, Drug form: INJ, Q4H, Dosing Weight 63.182, kg, PRN Hypertension, Priority: Routine, Start date: 10/29/15 15:57:00 CDT, Duration: 30 day, Stop date: 11/28/15 15:56:00 CDTNotes: (Same as: Apresoline) Push over 5 minutes No Longer Active 10/29/2015 [facility] sodium chloride 0.9% 1000 ml INJ 1,000 mL 1,000 mL, Rate: 100 ml/hr, Infuse over: 10 hr, Route: IV, Dosing Weight 63.182 kg, Total Volume: 1,000, Start date: 10/29/15 13:25:00 CDT, Duration: 2 day, Stop date: 10/31/15 13:24:00 CDT No Longer Active 10/29/2015 [facility] Zofran 4 mg, 2 mL, Route: IVP, Drug form: INJ, Q8H, Dosing Weight 63.182, kg, PRN Nausea, Start date: 10/29/15 13:25:00 CDT, Duration: 30 day, Stop date: 11/28/15 13:24:00 CDTNotes: (Same as: Zofran) MEDICATION WASTE Product Size: 4 mg Product Wasted: ___ mg No Longer Active 10/29/2015 [facility] heparin 4,000 unit, 4 mL, Route: IV, Drug form: INJ, ONCE, Dosing Weight 63.182, kg, Priority: STAT, Start date: 10/29/15 11:30:00 CDT, Stop date: 10/29/15 11:30:00 CDT Inactive 10/29/2015 [facility] Heparin - one time bolus for ACS 3,800 unit, 3.8 mL, Route: IV, Drug form: INJ, ONCE, Dosing Weight 63.182, kg, Priority: STAT, Start date: 10/29/15 11:08:00 CDT, Stop date: 10/29/15 11:08:00 CDT Inactive 10/29/2015 [facility] Aspirin 81 MG Chewable Tablet 324 mg, Route: CHEW, ONCE, Dosing Weight 63.182, kg, Priority: STAT, Start date: 10/29/15 11:07:00 CDT, Stop date: 10/29/15 11:07:00 CDT Inactive 10/29/2015 [facility] Allergies, Adverse Reactions, Alerts Substance Category Reaction Severity Reaction type Status Date Reported Comments Source Immunizations Immunization Date Given Site Status Last Updated Comments Source pneumococcal 13-valent vaccine 10/30/2015 Right deltoid completed [facility] Results Order Name Results Value Reference Range Date Interpretation Comments Source Spine lumbar wo contrast MRI Spine lumbar wo contrast MRI Patient Name: DENY STEPHENSON : 1940; Age: 76 years y/o Male MR: [id number] Study: Spine lumbar wo contrast MRI 08/06/2017 9:28 AM CDT Ordering Physician: Sanju Robles MD Clinical Indication: Tech:Reji Pop - Radiculopathy, lumbar region. Patient states stabbing lower back pain and stiffness radiating to right knee and hip. Pain is intermittent however has continued for >20 years. No specific injury occured. Patient received PT.; Comparison: None TECHNIQUE: Multiplanar T1, T2, STIR weighted noncontrast MRI of the lumbar spine is performed on the 1.5 Amie magnet. FINDINGS: ALIGNMENT AND GENERAL ASSESSMENT: There is normal alignment of the lumbar spine. The bone marrow is normal for the patient's age. There is no acute compression fracture. The anterior and posterior paraspinal soft tissues are normal. The conus medullaris ends at the T12-L1 level. For the sake of nomenclature, five lumbar vertebrae are assumed for the purpose of this dictation. T12-L1: No acute disc herniation, significant spinal or foraminal stenosis. Moderate facet arthrosis. L1-L2: Mild about 3.0 mm retrolisthesis of L1 on L2. Diffuse disc protrusion/extrusion and moderate facet arthrosis resulting in mild spinal stenosis and marked right lateral recess encroachment. Severe right foraminal stenosis is present. Please correlate with neurologic symptoms. L2-L3: Diffuse disc bulge and marked facet arthrosis resulting in mild spinal stenosis. No significant foraminal stenosis detected. L3-L4: Diffuse disc protrusion and marked facet arthrosis resulting in severe spinal stenosis with crowding of the cauda equina nerve roots. Moderate to severe right foraminal stenosis is present. Please correlate with neurologic symptoms. L4-L5: Posterior endplate ridging and disc osteophyte complex and marked facet arthrosis resulting in mild spinal stenosis and marked left lateral recess encroachment. Moderate right and severe left foraminal stenosis is present. Please correlate with neurologic symptoms. L5-S1: Mild diffuse disc bulge with right subarticular annular fissuring. No significant spinal stenosis. Mild bilateral foraminal stenosis is present. Please correlate with neurologic symptoms.. Multiple bilateral renal cysts are present. The superior pole right renal cyst or obstructed dilated calyx contains 3-4 stones. IMPRESSION: 1. Multilevel degenerative disc disease and facet arthrosis, most severe at L3-L4 and less extent at L4-L5, L1 and L2 and L2-L3 as detailed above. Please correlate with neurologic symptoms. 2. No acute compression fracture detected. 3. Multiple bilateral renal cysts are present. The superior pole right renal cyst or obstructed dilated calyx contains 3-4 stones. SL: [id number] 08/06/2017 - - Read by: Prabhu Shepherd MD Dictated Date/time: 08/06/17 10:37 Electronically Signed by: Prabhu Shepherd MD 08/06/17 10:48 FINAL REPORT [facility] Abdomen complete US Abdomen complete US Patient Name: DENY STEPHENSON : 1940; Age: 76 years y/o Male MR: [id number] Study: Abdomen complete US 08/06/2017 8:48 AM CDT Ordering Physician: Sanju Robles MD Comparison: 07/16/2017 lumbar series Clinical Indication: - ruq pain; No gallstones are demonstrated. The gallbladder has a normal sonographic appearance. The liver has a normal sonographic appearance. No intrahepatic duct dilatation demonstrated. Common duct caliber is 2 mm which is normal. The right kidney measures 10 x 4.6 x 6.1cm. Right renal cortical thickness 14 mm. A 1.5 x 1.3 x 1.3 cm lobular nodular focus of increased echogenicity is noted associated with posterior shadowing at the superior pole of the right kidney likely representing 2 or more renal calculi similar to the radiopaque calcifications noted on the recent lumbar spine radiograph. Unilocular simple cyst is present at the superior pole of the right kidney measuring 1.2 x 1.0 x 1.0 cm. Left kidney measures 10 x 5.4 x 5.7cm. Left renal cortical thickness 12 mm. Unilocular simple cysts are present at the inferior half of the left kidney measuring 3.0 x 2.3 x 2.0 cm and 2.1 x 1.3 x 1.3 cm, respectively. Unilocular simple cyst is present at the superior pole of the left kidney measuring 1.7 x 1.6 x 2.0 cm. Increased renal cortical echogenicity is noted at the kidneys bilaterally accentuating the corticomedullary differentiation. The spleen measures 9 x 3.3 x 4 cm.Kidneys and spleen have an otherwise normal sonographic appearance. The visualized abdominal aorta and IVC are unremarkable. The pancreas head has a normal sonographic appearance; the body and tail are obscured by shadowing from overlying bowel gas. Flow at the main portal vein is hepatopedal. IMPRESSION: 1. No gallstones. 2. Bilateral medical renal disease. 3. Bilateral renal cysts. 4.A 1.5 x 1.3 x 1.3 cm lobular nodular focus of increased echogenicity is noted associated with posterior shadowing at the superior pole of the right kidney likely representing 2 or more renal calculi similar to the radiopaque calcifications noted on the recent lumbar spine radiograph. SL: [id number] 08/06/2017 - - Read by: Thomas Fields MD Dictated Date/time: 08/06/17 12:48 Electronically Signed by: Thomas Fields MD 08/06/17 12:57 FINAL REPORT [facility] Spine lumbar series DX Spine lumbar series DX Clinical Indication: Right hip and lower back pain; Comparison: None FINDINGS: AP, lateral, and oblique views of the lumbar spine were obtained. Five, non-rib bearing lumbar vertebral bodies are present. No acute fracture or malalignment is seen. Moderate to severe multilevel disc space narrowing and endplate osteophyte formation is noted. Right upper quadrant calcific densities are seen. IMPRESSION: 1. No acute fracture or malalignment of the lumbar spine. 2. Multilevel moderate to severe degenerative disc disease. 3. Right upper quadrant calcifications representing gallstones or right renal calculi. SL: [id number] 07/16/2017 - - Read by: Deny Gomez MD Dictated Date/time: 07/16/17 13:33 Electronically Signed by: Deny Gomez MD 07/16/17 13:35 FINAL REPORT [facility] Hip 2/3 views uni w pelvis DX Hip 2/3 views uni w pelvis DX 2 VIEWS OF THE RIGHT HIP HISTORY: Right hip and low back pain. Patient denies trauma or injury. COMPARISON: No priors available. Moderately severe osteoarthritic change of the right hip with subarticular lucency in the femoral head and roof of the acetabulum. Severe joint space narrowing superiorly. No fracture or dislocation. IMPRESSION: Moderately severe right hip osteoarthritis. END REPORT SL: [id number] 07/16/2017 - - Read by: Bharathi Roberts MD Dictated Date/time: 07/16/17 13:09 Electronically Signed by: Bharathi Roberts MD 07/16/17 13:10 FINAL REPORT [facility] CHEM PANEL Phosphorus 3.4 mg/dL 2.5 - 4.5 03/04/2016 [facility] ELECTROLYTES AGAP 14.9 meq/L 10.0 - 20.0 03/04/2016 [facility] ELECTROLYTES eGFR 74 mL/min/1.73m2 03/04/2016 Result Comment: The eGFR is calculated using the [...] from the National Kidney Disease Education Program (NKDEP) which additionally recommends that when the eGFR is used in patients with extremes of body mass index for purposes of drug dosing, the eGFR should be multiplied by the estimated BMI. [facility] ELECTROLYTES Calcium Lvl 7.9 mg/dL 8.5 - 10.5 03/04/2016 [facility] ELECTROLYTES CO2 26 meq/L 24 - 32 03/04/2016 [facility] ELECTROLYTES Chloride Lvl 108 meq/L 95 - 109 03/04/2016 [facility] ELECTROLYTES Sodium Lvl 145 meq/L 135 - 145 03/04/2016 [facility] ELECTROLYTES Potassium Lvl 3.9 meq/L 3.5 - 5.1 03/04/2016 [facility] ELECTROLYTES BUN 16 mg/dL 7 - 22 03/04/2016 [facility] ELECTROLYTES Creatinine Lvl 1.00 mg/dL 0.50 - 1.40 03/04/2016 [facility] ELECTROLYTES Glucose Lvl 109 mg/dL 70 - 99 03/04/2016 [facility] HEMATOLOGY Hct 24.1 % 42.0 - 54.0 03/04/2016 [facility] HEMATOLOGY RDW 13.7 % 11.5 - 14.5 03/04/2016 [facility] HEMATOLOGY MCV 94.6 fL 80.0 - 94.0 03/04/2016 [facility] HEMATOLOGY MCH 32.1 pg 27.0 - 31.0 03/04/2016 [facility] HEMATOLOGY MCHC 34.0 g/dL 32.0 - 36.0 03/04/2016 [facility] HEMATOLOGY Hgb 8.2 g/dL 14.0 - 18.0 03/04/2016 [facility] HEMATOLOGY WBC 9.8 K/CMM 3.7 - 10.4 03/04/2016 [facility] HEMATOLOGY RBC 2.55 M/CMM 4.70 - 6.10 03/04/2016 [facility] HEMATOLOGY MPV 8.8 fL 7.4 - 10.4 03/04/2016 [facility] HEMATOLOGY Platelet 137 K/CMM 133 - 450 03/04/2016 [facility] HEMATOLOGY Lymphocytes # 1.6 K/CMM 1.0 - 5.5 03/04/2016 [facility] HEMATOLOGY Monocytes # 1.1 K/CMM 0.0 - 0.8 03/04/2016 [facility] HEMATOLOGY Monocytes 11.3 % 2.0 - 12.0 03/04/2016 [facility] HEMATOLOGY Eosinophils 2.2 % 0.0 - 4.0 03/04/2016 [facility] HEMATOLOGY Lymphocytes 16.1 % 20.0 - 40.0 03/04/2016 [facility] HEMATOLOGY Basophils 0.4 % 0.0 - 1.0 03/04/2016 [facility] HEMATOLOGY Segs-Bands # 6.9 K/CMM 1.5 - 8.1 03/04/2016 [facility] HEMATOLOGY Segs 70.0 % 45.0 - 75.0 03/04/2016 [facility] HEMATOLOGY Eosinophils # 0.2 K/CMM 0.0 - 0.5 03/04/2016 [facility] HEMATOLOGY Hgb 8.2 g/dL 14.0 - 18.0 03/03/2016 [facility] HEMATOLOGY Hct 25.0 % 42.0 - 54.0 03/03/2016 [facility] CHEM PANEL Phosphorus 2.3 mg/dL 2.5 - 4.5 03/03/2016 [facility] CHEM PANEL Magnesium Lvl 2.2 mg/dL 1.8 - 2.4 03/03/2016 [facility] CHEM PANEL eGFR 59 mL/min/1.73m2 03/03/2016 Result Comment: The eGFR is calculated using the [...] from the National Kidney Disease Education Program (NKDEP) which additionally recommends that when the eGFR is used in patients with extremes of body mass index for purposes of drug dosing, the eGFR should be multiplied by the estimated BMI. [facility] CHEM PANEL Bili Total 0.7 mg/dL 0.2 - 1.3 03/03/2016 [facility] CHEM PANEL Alk Phos 45 unit/L 39 - 136 03/03/2016 [facility] CHEM PANEL AST 11 unit/L 0 - 37 03/03/2016 [facility] CHEM PANEL Glucose Lvl 123 mg/dL 70 - 99 03/03/2016 [facility] CHEM PANEL ALT 21 unit/L 0 - 65 03/03/2016 [facility] CHEM PANEL Sodium Lvl 144 meq/L 135 - 145 03/03/2016 [facility] CHEM PANEL Globulin 2.7 g/dL 2.7 - 4.2 03/03/2016 [facility] CHEM PANEL A/G Ratio 1.0 0.7 - 1.6 03/03/2016 [facility] CHEM PANEL B/C Ratio 22 6 - 25 03/03/2016 [facility] CHEM PANEL Albumin Lvl 2.8 g/dL 3.5 - 5.0 03/03/2016 [facility] CHEM PANEL Total Protein 5.5 g/dL 6.4 - 8.4 03/03/2016 [facility] CHEM PANEL Calcium Lvl 7.8 mg/dL 8.5 - 10.5 03/03/2016 [facility] CHEM PANEL Chloride Lvl 108 meq/L 95 - 109 03/03/2016 [facility] CHEM PANEL Potassium Lvl 4.2 meq/L 3.5 - 5.1 03/03/2016 [facility] CHEM PANEL CO2 28 meq/L 24 - 32 03/03/2016 [facility] CHEM PANEL AGAP 12.2 meq/L 10.0 - 20.0 03/03/2016 [facility] CHEM PANEL Creatinine Lvl 1.20 mg/dL 0.50 - 1.40 03/03/2016 [facility] CHEM PANEL BUN 27 mg/dL 7 - 22 03/03/2016 [facility] HEMATOLOGY Hct 25.5 % 42.0 - 54.0 03/03/2016 [facility] HEMATOLOGY MCV 93.8 fL 80.0 - 94.0 03/03/2016 [facility] HEMATOLOGY MCH 31.5 pg 27.0 - 31.0 03/03/2016 [facility] HEMATOLOGY MCHC 33.6 g/dL 32.0 - 36.0 03/03/2016 [facility] HEMATOLOGY RDW 13.9 % 11.5 - 14.5 03/03/2016 [facility] HEMATOLOGY WBC 13.5 K/CMM 3.7 - 10.4 03/03/2016 [facility] HEMATOLOGY RBC 2.72 M/CMM 4.70 - 6.10 03/03/2016 [facility] HEMATOLOGY Hgb 8.5 g/dL 14.0 - 18.0 03/03/2016 [facility] HEMATOLOGY Platelet 140 K/CMM 133 - 450 03/03/2016 [facility] HEMATOLOGY MPV 8.6 fL 7.4 - 10.4 03/03/2016 [facility] CHEM PANEL Phosphorus 2.7 mg/dL 2.5 - 4.5 03/02/2016 [facility] CHEM PANEL Magnesium Lvl 2.3 mg/dL 1.8 - 2.4 03/02/2016 [facility] ELECTROLYTES AGAP 13.1 meq/L 10.0 - 20.0 03/02/2016 [facility] ELECTROLYTES Calcium Lvl 7.9 mg/dL 8.5 - 10.5 03/02/2016 [facility] ELECTROLYTES Potassium Lvl 4.1 meq/L 3.5 - 5.1 03/02/2016 [facility] ELECTROLYTES Chloride Lvl 111 meq/L 95 - 109 03/02/2016 [facility] ELECTROLYTES CO2 26 meq/L 24 - 32 03/02/2016 [facility] ELECTROLYTES Globulin 2.7 g/dL 2.7 - 4.2 03/02/2016 [facility] ELECTROLYTES A/G Ratio 1.1 0.7 - 1.6 03/02/2016 [facility] ELECTROLYTES B/C Ratio 32 6 - 25 03/02/2016 [facility] ELECTROLYTES Total Protein 5.7 g/dL 6.4 - 8.4 03/02/2016 [facility] ELECTROLYTES Albumin Lvl 3.0 g/dL 3.5 - 5.0 03/02/2016 [facility] ELECTROLYTES eGFR 54 mL/min/1.73m2 03/02/2016 Result Comment: The eGFR is calculated using the [...] from the National Kidney Disease Education Program (NKDEP) which additionally recommends that when the eGFR is used in patients with extremes of body mass index for purposes of drug dosing, the eGFR should be multiplied by the estimated BMI. [facility] ELECTROLYTES Alk Phos 52 unit/L 39 - 136 03/02/2016 [facility] ELECTROLYTES ALT 27 unit/L 0 - 65 03/02/2016 [facility] ELECTROLYTES AST 18 unit/L 0 - 37 03/02/2016 [facility] ELECTROLYTES Bili Total 0.4 mg/dL 0.2 - 1.3 03/02/2016 [facility] ELECTROLYTES Creatinine Lvl 1.30 mg/dL 0.50 - 1.40 03/02/2016 [facility] ELECTROLYTES Sodium Lvl 146 meq/L 135 - 145 03/02/2016 [facility] ELECTROLYTES BUN 42 mg/dL 7 - 22 03/02/2016 [facility] ELECTROLYTES Glucose Lvl 159 mg/dL 70 - 99 03/02/2016 [facility] HEMATOLOGY Basophils 0.2 % 0.0 - 1.0 03/02/2016 [facility] HEMATOLOGY Lymphocytes # 0.6 K/CMM 1.0 - 5.5 03/02/2016 [facility] HEMATOLOGY Monocytes # 0.6 K/CMM 0.0 - 0.8 03/02/2016 [facility] HEMATOLOGY Segs-Bands # 8.8 K/CMM 1.5 - 8.1 03/02/2016 [facility] HEMATOLOGY Segs 87.5 % 45.0 - 75.0 03/02/2016 [facility] HEMATOLOGY Lymphocytes 6.4 % 20.0 - 40.0 03/02/2016 [facility] HEMATOLOGY Eosinophils 0.1 % 0.0 - 4.0 03/02/2016 [facility] HEMATOLOGY Monocytes 5.8 % 2.0 - 12.0 03/02/2016 [facility] HEMATOLOGY RBC 3.41 M/CMM 4.70 - 6.10 03/02/2016 [facility] HEMATOLOGY WBC 10.1 K/CMM 3.7 - 10.4 03/02/2016 [facility] HEMATOLOGY MCV 92.3 fL 80.0 - 94.0 03/02/2016 [facility] HEMATOLOGY Platelet 165 K/CMM 133 - 450 03/02/2016 [facility] HEMATOLOGY RDW 13.8 % 11.5 - 14.5 03/02/2016 [facility] MCHC 33.8 g/dL 32.0 - 36.0 03/02/2016 [facility] MCH 31.1 pg 27.0 - 31.0 03/02/2016 [facility] MPV 8.5 fL 7.4 - 10.4 03/02/2016 [facility] HEMATOLOGY Lymphocytes # 0.7 K/CMM 1.0 - 5.5 03/02/2016 [facility] HEMATOLOGY Segs-Bands # 11.3 K/CMM 1.5 - 8.1 03/02/2016 [facility] HEMATOLOGY Monocytes # 0.9 K/CMM 0.0 - 0.8 03/02/2016 [facility] HEMATOLOGY Eosinophils 0.1 % 0.0 - 4.0 03/02/2016 [facility] HEMATOLOGY Basophils 0.2 % 0.0 - 1.0 03/02/2016 [facility] HEMATOLOGY Segs 87.1 % 45.0 - 75.0 03/02/2016 [facility] Lymphocytes 5.4 % 20.0 - 40.0 03/02/2016 [facility] Monocytes 7.2 % 2.0 - 12.0 03/02/2016 [facility] BLOOD BANK RESULTS Antibody Scrn Negative (03/01/16 9:01 PM) 03/02/2016 [facility] BLOOD BANK RESULTS ABO/Rh B POS 03/02/2016 [facility] CHEM PANEL A/G Ratio 1.2 0.7 - 1.6 03/02/2016 [facility] CHEM PANEL Globulin 3.2 g/dL 2.7 - 4.2 03/02/2016 [facility] CHEM PANEL B/C Ratio 24 6 - 25 03/02/2016 [facility] CHEM PANEL Albumin Lvl 3.8 g/dL 3.5 - 5.0 03/02/2016 [facility] CHEM PANEL Total Protein 7.0 g/dL 6.4 - 8.4 03/02/2016 [facility] CHEM PANEL Alk Phos 79 unit/L 39 - 136 03/02/2016 [facility] CHEM PANEL AST 21 unit/L 0 - 37 03/02/2016 [facility] CHEM PANEL ALT 34 unit/L 0 - 65 03/02/2016 [facility] CHEM PANEL Bili Total 0.5 mg/dL 0.2 - 1.3 03/02/2016 [facility] HEMATOLOGY PTT 29.0 s 22.9 - 35.8 03/02/2016 [facility] HEMATOLOGY INR 1.17 0.85 - 1.17 03/02/2016 [facility] HEMATOLOGY PT 15.1 s 12.0 - 14.7 03/02/2016 [facility] HEMATOLOGY Eosinophils # 0.4 K/CMM 0.0 - 0.5 03/02/2016 [facility] Chest 1view DX Chest 1view DX EXAM: XR CHEST 1 VIEW DATE: 03/01/2016 8:58 PM 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 FINDINGS: The lungs are well inflated. No focal consolidation or pneumothorax is identified. The cardiomediastinal silhouette is within normal limits. The costophrenic recesses are sharp and without effusion. No acute osseous abnormality is identified. IMPRESSION: No acute cardiopulmonary abnormality. SL: [id number] 03/01/2016 - - Read by: Chip Montenegro MD Dictated Date/time: 03/01/16 21:25 Electronically Signed by: Chip Montenegro MD 03/01/16 21:26 FINAL REPORT [facility] CHEM PANEL eGFR 81 mL/min/1.73m2 12/05/2015 Result Comment: The eGFR is calculated using the [...] from the National Kidney Disease Education Program (NKDEP) which additionally recommends that when the eGFR is used in patients with extremes of body mass index for purposes of drug dosing, the eGFR should be multiplied by the estimated BMI. [facility] CHEM PANEL Potassium Lvl 4.0 meq/L 3.5 - 5.1 12/05/2015 [facility] CHEM PANEL Creatinine Lvl 0.93 mg/dL 0.50 - 1.40 12/05/2015 [facility] CHEM PANEL Sodium Lvl 139 meq/L 135 - 145 12/05/2015 [facility] CHEM PANEL Glucose Lvl 108 mg/dL 70 - 99 12/05/2015 [facility] CHEM PANEL BUN 21 mg/dL 7 - 22 12/05/2015 [facility] CHEM PANEL CO2 27 meq/L 24 - 32 12/05/2015 [facility] CHEM PANEL Calcium Lvl 8.6 mg/dL 8.5 - 10.5 12/05/2015 [facility] CHEM PANEL Chloride Lvl 107 meq/L 95 - 109 12/05/2015 [facility] CHEM PANEL AGAP 9.0 meq/L 10.0 - 20.0 12/05/2015 [facility] MCV 91.3 fL 80.0 - 94.0 12/05/2015 [facility] Hct 45.6 % 42.0 - 54.0 12/05/2015 [facility] MCHC 32.8 g/dL 32.0 - 36.0 12/05/2015 [facility] MCH 30.0 pg 27.0 - 31.0 12/05/2015 [facility] MPV 8.5 fL 7.4 - 10.4 12/05/2015 [facility] Platelet 166 K/CMM 133 - 450 12/05/2015 [facility] RDW 14.1 % 11.5 - 14.5 12/05/2015 [facility] Hgb 15.0 g/dL 14.0 - 18.0 12/05/2015 [facility] RBC 5.00 M/CMM 4.70 - 6.10 12/05/2015 [facility] WBC 6.2 K/CMM 3.7 - 10.4 12/05/2015 [facility] Segs-Bands # 3.9 K/CMM 1.5 - 8.1 12/05/2015 [facility] Lymphocytes # 1.1 K/CMM 1.0 - 5.5 12/05/2015 [facility] HEMATOLOGY Basophils 0.5 % 0.0 - 1.0 12/05/2015 [facility] HEMATOLOGY Eosinophils 6.5 % 0.0 - 4.0 12/05/2015 [facility] HEMATOLOGY Lymphocytes 18.5 % 20.0 - 40.0 12/05/2015 [facility] HEMATOLOGY Monocytes 11.7 % 2.0 - 12.0 12/05/2015 [facility] HEMATOLOGY Segs 62.8 % 45.0 - 75.0 12/05/2015 [facility] HEMATOLOGY Eosinophils # 0.4 K/CMM 0.0 - 0.5 12/05/2015 [facility] Monocytes # 0.7 K/CMM 0.0 - 0.8 12/05/2015 [facility] HEMATOLOGY PTT 28.1 s 22.9 - 35.8 12/05/2015 [facility] HEMATOLOGY PT 14.1 s 12.0 - 14.7 12/05/2015 [facility] HEMATOLOGY INR 1.06 0.85 - 1.17 12/05/2015 [facility] CARDIAC ENZYMES Troponin-I 8.00 ng/mL 0.00 - 0.40 10/31/2015 Result Comment: Critical Result(s) called to mary slade at 10/31/2015 04:15 by lgb. Read back OK. [facility] CARDIAC ENZYMES Total CK 99 unit/L 12 - 191 10/31/2015 [facility] CARDIAC ENZYMES CK MB 1.5 ng/mL 0.5 - 3.6 10/31/2015 [facility] CARDIAC ENZYMES CK MB Index 1.5 0.0 - 2.5 10/31/2015 [facility] CHEM PANEL eGFR 72 mL/min/1.73m2 10/31/2015 Result Comment: The eGFR is calculated using the [...] from the National Kidney Disease Education Program (NKDEP) which additionally recommends that when the eGFR is used in patients with extremes of body mass index for purposes of drug dosing, the eGFR should be multiplied by the estimated BMI. [facility] CHEM PANEL AGAP 9.1 meq/L 10.0 - 20.0 10/31/2015 [facility] CHEM PANEL CO2 29 meq/L 24 - 32 10/31/2015 [facility] CHEM PANEL Calcium Lvl 7.9 mg/dL 8.5 - 10.5 10/31/2015 [facility] CHEM PANEL Chloride Lvl 108 meq/L 95 - 109 10/31/2015 [facility] CHEM PANEL Potassium Lvl 4.1 meq/L 3.5 - 5.1 10/31/2015 [facility] CHEM PANEL BUN 15 mg/dL 7 - 22 10/31/2015 [facility] CHEM PANEL Creatinine Lvl 1.03 mg/dL 0.50 - 1.40 10/31/2015 [facility] CHEM PANEL Glucose Lvl 119 mg/dL 70 - 99 10/31/2015 [facility] CHEM PANEL Sodium Lvl 142 meq/L 135 - 145 10/31/2015 [facility] CHEM PANEL Bili Total 1.0 mg/dL 0.2 - 1.3 10/31/2015 [facility] CHEM PANEL Bili Direct 0.2 mg/dL 0.0 - 0.3 10/31/2015 [facility] CHEM PANEL Alk Phos 46 unit/L 39 - 136 10/31/2015 [facility] CHEM PANEL Albumin Lvl 2.9 g/dL 3.5 - 5.0 10/31/2015 [facility] CHEM PANEL AST 38 unit/L 0 - 37 10/31/2015 [facility] CHEM PANEL A/G Ratio 0.8 0.7 - 1.6 10/31/2015 [facility] CHEM PANEL Globulin 3.7 g/dL 2.7 - 4.2 10/31/2015 [facility] CHEM PANEL Total Protein 6.6 g/dL 6.4 - 8.4 10/31/2015 [facility] CHEM PANEL ALT 31 unit/L 0 - 65 10/31/2015 [facility] CHEM PANEL Bili Indirect 0.8 mg/dL 0.0 - 1.0 10/31/2015 [facility] HEMATOLOGY Hct 43.1 % 42.0 - 54.0 10/31/2015 [facility] HEMATOLOGY Hgb 14.1 g/dL 14.0 - 18.0 10/31/2015 [facility] CARDIAC ENZYMES CK MB Index 3.3 0.0 - 2.5 10/30/2015 [facility] CARDIAC ENZYMES CK MB 4.8 ng/mL 0.5 - 3.6 10/30/2015 [facility] CARDIAC ENZYMES Troponin-I 12.00 ng/mL 0.00 - 0.40 10/30/2015 Result Comment: Critical Result(s) called to justina rodriguez at 10/30/2015 06:07 by lisa. Read back OK. [facility] CARDIAC ENZYMES Total CK 147 unit/L 12 - 191 10/30/2015 [facility] CHEM PANEL Bili Direct 0.2 mg/dL 0.0 - 0.3 10/30/2015 [facility] CHEM PANEL eGFR 82 mL/min/1.73m2 10/30/2015 Result Comment: The eGFR is calculated using the [...] from the National Kidney Disease Education Program (NKDEP) which additionally recommends that when the eGFR is used in patients with extremes of body mass index for purposes of drug dosing, the eGFR should be multiplied by the estimated BMI. [facility] CHEM PANEL Bili Total 0.7 mg/dL 0.2 - 1.3 10/30/2015 [facility] CHEM PANEL ALT 35 unit/L 0 - 65 10/30/2015 [facility] CHEM PANEL A/G Ratio 1.0 0.7 - 1.6 10/30/2015 [facility] CHEM PANEL Alk Phos 49 unit/L 39 - 136 10/30/2015 [facility] CHEM PANEL AST 56 unit/L 0 - 37 10/30/2015 [facility] CHEM PANEL Globulin 2.9 g/dL 2.7 - 4.2 10/30/2015 [facility] CHEM PANEL Albumin Lvl 3.0 g/dL 3.5 - 5.0 10/30/2015 [facility] CHEM PANEL Total Protein 5.9 g/dL 6.4 - 8.4 10/30/2015 [facility] CHEM PANEL Creatinine Lvl 0.93 mg/dL 0.50 - 1.40 10/30/2015 [facility] CHEM PANEL BUN 17 mg/dL 7 - 22 10/30/2015 [facility] CHEM PANEL Glucose Lvl 118 mg/dL 70 - 99 10/30/2015 [facility] CHEM PANEL B/C Ratio 18 6 - 25 10/30/2015 [facility] CHEM PANEL Calcium Lvl 7.7 mg/dL 8.5 - 10.5 10/30/2015 [facility] CHEM PANEL AGAP 12.1 meq/L 10.0 - 20.0 10/30/2015 [facility] CHEM PANEL Chloride Lvl 110 meq/L 95 - 109 10/30/2015 [facility] CHEM PANEL CO2 24 meq/L 24 - 32 10/30/2015 [facility] CHEM PANEL Potassium Lvl 4.1 meq/L 3.5 - 5.1 10/30/2015 [facility] CHEM PANEL Sodium Lvl 142 meq/L 135 - 145 10/30/2015 [facility] CHEM PANEL Phosphorus 3.1 mg/dL 2.5 - 4.5 10/30/2015 [facility] CHEM PANEL Magnesium Lvl 2.0 mg/dL 1.8 - 2.4 10/30/2015 [facility] HEMATOLOGY Lymphocytes # 1.1 K/CMM 1.0 - 5.5 10/30/2015 [facility] HEMATOLOGY Segs-Bands # 6.0 K/CMM 1.5 - 8.1 10/30/2015 [facility] HEMATOLOGY Basophils 0.2 % 0.0 - 1.0 10/30/2015 [facility] HEMATOLOGY Eosinophils 0.7 % 0.0 - 4.0 10/30/2015 [facility] HEMATOLOGY Eosinophils # 0.1 K/CMM 0.0 - 0.5 10/30/2015 [facility] HEMATOLOGY Monocytes # 1.3 K/CMM 0.0 - 0.8 10/30/2015 [facility] HEMATOLOGY Monocytes 14.9 % 2.0 - 12.0 10/30/2015 [facility] HEMATOLOGY Lymphocytes 13.5 % 20.0 - 40.0 10/30/2015 [facility] HEMATOLOGY Segs 70.7 % 45.0 - 75.0 10/30/2015 [facility] HEMATOLOGY Platelet 158 K/CMM 133 - 450 10/30/2015 [facility] HEMATOLOGY RDW 14.3 % 11.5 - 14.5 10/30/2015 [facility] HEMATOLOGY MCHC 33.2 g/dL 32.0 - 36.0 10/30/2015 [facility] HEMATOLOGY Hct 42.1 % 42.0 - 54.0 10/30/2015 [facility] HEMATOLOGY MCH 30.3 pg 27.0 - 31.0 10/30/2015 [facility] HEMATOLOGY Hgb 14.0 g/dL 14.0 - 18.0 10/30/2015 [facility] HEMATOLOGY MCV 91.4 fL 80.0 - 94.0 10/30/2015 [facility] HEMATOLOGY RBC 4.61 M/CMM 4.70 - 6.10 10/30/2015 [facility] HEMATOLOGY MPV 8.8 fL 7.4 - 10.4 10/30/2015 [facility] HEMATOLOGY WBC 8.4 K/CMM 3.7 - 10.4 10/30/2015 [facility] IMMUNOLOGY Hep C Ab Negative *NA* (10/29/15 2:40 PM) 10/29/2015 [facility] Hep B Core IgM Negative *NA* (10/29/15 2:40 PM) Negative 10/29/2015 [facility] Hep A IgM Negative *NA* (10/29/15 2:40 PM) Negative 10/29/2015 [facility] Hep Bs Ag Negative *NA* (10/29/15 2:40 PM) Negative 10/29/2015 [facility] LIPIDS LDL (Calculated) 69 mg/dL <=99 mg/dL 10/29/2015 [facility] LIPIDS Chol 133 mg/dL <=199 mg/dL 10/29/2015 [facility] LIPIDS Trig 86 mg/dL <=149 mg/dL 10/29/2015 [facility] LIPIDS CHD Risk 2.83 4.00 - 7.30 10/29/2015 [facility] LIPIDS HDL 47 mg/dL >=61 mg/dL 10/29/2015 [facility] LIPIDS VLDL 17 10/29/2015 [facility] CARDIAC ENZYMES CK MB Index 3.5 0.0 - 2.5 10/29/2015 [facility] CARDIAC ENZYMES Troponin-I 14.00 ng/mL 0.00 - 0.40 10/29/2015 Result Comment: Critical Result(s) called to Corey at 10/29/2015 11:38 [email or web address]. Read back OK. [facility] CARDIAC ENZYMES CK MB 10.1 ng/mL 0.5 - 3.6 10/29/2015 [facility] CARDIAC ENZYMES Total CK 289 unit/L 12 - 191 10/29/2015 [facility] CHEM PANEL eGFR 63 mL/min/1.73m2 10/29/2015 Result Comment: The eGFR is calculated using the [...] from the National Kidney Disease Education Program (NKDEP) which additionally recommends that when the eGFR is used in patients with extremes of body mass index for purposes of drug dosing, the eGFR should be multiplied by the estimated BMI. [facility] CHEM PANEL A/G Ratio 0.9 0.7 - 1.6 10/29/2015 [facility] CHEM PANEL Globulin 4.3 g/dL 2.7 - 4.2 10/29/2015 [facility] CHEM PANEL Bili Total 1.1 mg/dL 0.2 - 1.3 10/29/2015 [facility] CHEM PANEL AGAP 11.1 meq/L 10.0 - 20.0 10/29/2015 [facility] CHEM PANEL Alk Phos 58 unit/L 39 - 136 10/29/2015 [facility] CHEM PANEL B/C Ratio 18 6 - 25 10/29/2015 [facility] CHEM PANEL AST 116 unit/L 0 - 37 10/29/2015 [facility] CHEM PANEL Calcium Lvl 8.8 mg/dL 8.5 - 10.5 10/29/2015 [facility] CHEM PANEL Chloride Lvl 102 meq/L 95 - 109 10/29/2015 [facility] CHE[facility] CO2 30 meq/L 24 - 32 10/29/2015 [facility] Albumin Lvl 4.0 g/dL 3.5 - 5.0 10/29/2015 [facility] Total Protein 8.3 g/dL 6.4 - 8.4 10/29/2015 [facility] PANEL ALT 51 unit/L 0 - 65 10/29/2015 [facility] PANEL Creatinine Lvl 1.14 mg/dL 0.50 - 1.40 10/29/2015 [facility] PANEL Sodium Lvl 139 meq/L 135 - 145 10/29/2015 [facility] PANEL Potassium Lvl 4.1 meq/L 3.5 - 5.1 10/29/2015 [facility] CHEM PANEL Glucose Lvl 92 mg/dL 70 - 99 10/29/2015 [facility] CHEM PANEL BUN 20 mg/dL 7 - 22 10/29/2015 [facility] HEMATOLOGY Eosinophils # 0.1 K/CMM 0.0 - 0.5 10/29/2015 [facility] HEMATOLOGY Monocytes # 1.5 K/CMM 0.0 - 0.8 10/29/2015 [facility] HEMATOLOGY Eosinophils 0.6 % 0.0 - 4.0 10/29/2015 [facility] HEMATOLOGY Segs-Bands # 6.4 K/CMM 1.5 - 8.1 10/29/2015 [facility] HEMATOLOGY Lymphocytes # 1.5 K/CMM 1.0 - 5.5 10/29/2015 [facility] HEMATOLOGY Basophils # 0.1 K/CMM 0.0 - 0.2 10/29/2015 [facility] HEMATOLOGY Basophils 0.6 % 0.0 - 1.0 10/29/2015 [facility] HEMATOLOGY Segs 67.0 % 45.0 - 75.0 10/29/2015 [facility] HEMATOLOGY Monocytes 16.1 % 2.0 - 12.0 10/29/2015 [facility] Lymphocytes 15.7 % 20.0 - 40.0 10/29/2015 [facility] HEMATOLOGY PT 14.1 s 12.0 - 14.7 10/29/2015 [facility] HEMATOLOGY INR 1.06 0.85 - 1.17 10/29/2015 [facility] PTT 29.6 s 22.9 - 35.8 10/29/2015 [facility] HEMATOLOGY MPV 8.5 fL 7.4 - 10.4 10/29/2015 [facility] HEMATOLOGY Platelet 198 K/CMM 133 - 450 10/29/2015 [facility] MCHC 32.6 g/dL 32.0 - 36.0 10/29/2015 [facility] HEMATOLOGY RDW 14.5 % 11.5 - 14.5 10/29/2015 [facility] HEMATOLOGY Hgb 16.2 g/dL 14.0 - 18.0 10/29/2015 [facility] HEMATOLOGY RBC 5.45 M/CMM 4.70 - 6.10 10/29/2015 [facility] HEMATOLOGY WBC 9.5 K/CMM 3.7 - 10.4 10/29/2015 [facility] HEMATOLOGY MCV 91.6 fL 80.0 - 94.0 10/29/2015 [facility] HEMATOLOGY MCH 29.8 pg 27.0 - 31.0 10/29/2015 [facility] HEMATOLOGY Hct 49.9 % 42.0 - 54.0 10/29/2015 [facility] Chest 1view DX Chest 1view DX Study: Chest 1view DX Age Male 74 years old Clinical Indication: Chest pain; Comparison: None FINDINGS: Tubes and lines: None. LUNGS: The volume of the lungs is normal. There is no evidence of consolidation. No pleural effusion is noted. The pulmonary vasculature is within normal limits. MEDIASTINUM: Cardiac silhouette is within normal limits of size. CHEST WALL: Unremarkable. SKELETON: The visualized osseous structures are unremarkable. IMPRESSION: 1. No radiographic evidence of acute cardiopulmonary disease. SL: [id number] 10/29/2015 - - Read by: Cody Goss MD Dictated Date/time: 10/29/15 11:46 Electronically Signed by: Cody Goss MD 10/29/15 11:47 FINAL REPORT [facility] Vital Signs Vital Sign Value Date Comments Source Systolic (mm Hg) 151 03/04/2016 [facility] Diastolic (mm Hg) 72 03/04/2016 [facility] Temperature Oral (F) 98.1 F 03/04/2016 [facility] Respitory Rate 18 03/04/2016 [facility] Heart Rate 77 03/04/2016 [facility] Systolic (mm Hg) 148 03/04/2016 [facility] Diastolic (mm Hg) 71 03/04/2016 [facility] Heart Rate 77 03/04/2016 [facility] Respitory Rate 18 03/04/2016 [facility] Temperature Oral (F) 97.7 F 03/04/2016 [facility] Heart Rate 82 03/04/2016 [facility] Systolic (mm Hg) 153 03/04/2016 [facility] Diastolic (mm Hg) 66 03/04/2016 [facility] Respitory Rate 16 03/04/2016 [facility] Temperature Oral (F) 99.1 F 03/04/2016 [facility] Weight 64.091 03/01/2016 [facility] BMI Calculated 21.48 03/01/2016 [facility] Height 172.72 cm 03/01/2016 [facility] Systolic (mm Hg) 139 12/11/2015 [facility] Diastolic (mm Hg) 68 12/11/2015 [facility] Respitory Rate 16 12/11/2015 [facility] Heart Rate 86 12/11/2015 [facility] Respitory Rate 15 12/05/2015 [facility] Temperature Oral (F) 97.9 F 12/05/2015 [facility] Heart Rate 70 12/05/2015 [facility] Systolic (mm Hg) 157 12/05/2015 [facility] Diastolic (mm Hg) 74 12/05/2015 [facility] BMI Calculated 20.87 12/05/2015 [facility] Weight 62.273 12/05/2015 [facility] Height 172.72 cm 12/05/2015 [facility] Respitory Rate 18 10/31/2015 [facility] Systolic (mm Hg) 143 10/31/2015 [facility] Diastolic (mm Hg) 78 10/31/2015 [facility] Temperature Oral (F) 98.3 F 10/31/2015 [facility] Heart Rate 85 10/31/2015 [facility] Heart Rate 80 10/31/2015 [facility] Respitory Rate 20 10/31/2015 [facility] Temperature Oral (F) 98.3 F 10/31/2015 [facility] Systolic (mm Hg) 134 10/31/2015 [facility] Diastolic (mm Hg) 84 10/31/2015 [facility] Temperature Oral (F) 100.3 F 10/31/2015 [facility] Systolic (mm Hg) 145 10/31/2015 [facility] Diastolic (mm Hg) 80 10/31/2015 [facility] Heart Rate 83 10/31/2015 [facility] Respitory Rate 20 10/31/2015 [facility] Weight 63.182 10/29/2015 [facility] Height 172.72 cm 10/29/2015 [facility] BMI Calculated 21.18 10/29/2015 [facility] Encounters Location Location Details Encounter Type Encounter Number Reason For Visit Attending Provider ADM Date DC Date Status Source [id number]2015 [facility] Bedded Outpatient [id number] Daryl santo 12/10/2015 12/11/2015 [facility] Inpatient [id number] Sanju Robles 03/01/2016 03/04/2016 [facility] Outpatient [id number] Sanju Robles 07/16/2017 07/17/2017 [facility] OP Therapy Patients [id number] Sanju Robles 07/28/2017 08/27/2017 [facility] Outpatient [id number] Sanju Robles 08/06/2017 08/07/2017 [facility] Procedures Procedure Code Date Perfomer Comments Source Stent placement [id number] 10/29/2015 [facility] Stent placement [id number] 10/29/2015 [facility] Appendectomy; [address] [facility] Control of epistaxis [id number] [facility] Tonsillectomy and adenoidectomy; age 12 or over [address] [facility] Appendectomy; [address] [facility] Control of epistaxis [id number] [facility] Tonsillectomy and adenoidectomy; age 12 or over [address] [facility]
--- OUTSIDE RECORDS SUMMARY | 2018-04-13 05:11 | XMS REPORT | Summary of Care ---
Author Author [facility] Organization [facility] Address Unknown Phone Unavailable Encounter HQ Harjinderr_bhavik(FIN) [id number] Date(s): 07/16/17 - 07/16/17 [facility] [address] [place] [address]- Discharge Disposition: Home or Self Care Attending Physician: Sanju Robles MD Vital Signs No data available for this section Problem List Condition Effective Dates Status Health Status Informant Chest Active pain(Confirmed) CAD (coronary artery Active disease)(Confirmed) Hyperlipidemia(Confi Active rmed) Hypertension(Confirm Active ed) 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 ) Testosterone(Confirm Active ed) Allergies, Adverse Reactions, Alerts Substance Reaction Severity Status NKDA Active Medications No data available for this section Results No data available for this section Immunizations Given and Recorded Vaccine Date Status Refusal Reason pneumococcal 13-valent vaccine 10/30/15 Given Procedures Procedure Date Related Diagnosis Body Site Status Stent placement 10/29/15 Completed Appendectomy; Completed Control of epistaxis Completed Tonsillectomy and adenoidectomy; age 12 or Completed over Social History Social History Type Response Alcohol Never Smoking Status Never smoker; Ready to change: No; Exposure to Tobacco Smoke None; Cigarette Smoking Last 365 Days No; Reg Smoking Cessation Counseling No entered on: 03/01/16 Assessment and Plan No data available for this section
--- OUTSIDE RECORDS SUMMARY | 2018-04-13 05:12 | XMS REPORT | Summary of Care ---
Author Author [facility] Address Unknown Phone Unavailable Encounter HQ Joe_bhavik(FIN) [id number] Date(s): 07/28/17 - 08/26/17 [facility] Discharge Disposition: Home or Self Care Attending [...]
--- OUTSIDE RECORDS SUMMARY | 2018-04-13 05:12 | XMS REPORT | Summary of Care ---
Author Author [facility] Organization [facility] Address Unknown Phone Unavailable Encounter HQ Harjinderr_bhavik(FIN) [id number] Date(s): 08/06/17 - 08/06/17 [facility] [address] [place] [address]- Discharge Disposition: Home or Self Care Attending Physician: Sanju Robles MD Referring Physician: Sanju Robles MD Vital Signs No [...]
--- OUTSIDE RECORDS SUMMARY | 2018-04-13 05:12 | XMS REPORT ---
Author Author [facility] Address Unknown Phone Unavailable Care Team Providers Care Ship Liner Name Role Phone MORIS MCCARTHY Unavailable Unavailable Renata ROBB Unavailable Unavailable Problems This patient has no known problems. Allergies, Adverse Reactions, Alerts This patient has no known allergies or adverse reactions. Medications This patient has no known medications. Results Test Description Test Time Test Comments Text Results Atomic Results Result Comments CHEST 2 VIEWS 2018-03-26 15:03:00 [place] [address] Patient Name: DENY STEPHENSON JR MR #: [id number] : 1940 Age/Sex: 77/M Req #: [id number] Adm Physician: Ordered by: MORIS MCCARTHY MD Report #: [id number] Location: OR Room/Bed: Procedure: [id number] DX/CHEST 2 VIEWS Exam Date: Exam Time: REPORT STATUS: Signed EXAMINATION: PA and lateral views of the chest. COMPARISON: CT chest 11/02/2017 CLINICAL HISTORY: Kidney stones, preop DISCUSSION: Lines/tubes: None. Lungs: The lungs are well inflated and clear. There is no evidence of pneumonia or pulmonary edema. Pleura: There is no pleural effusion or pneumothorax. Heart and mediastinum: Cardiomediastinal silhouette is unremarkable. Pulmonary vasculature is normal. Bones and soft tissues: No acute bony abnormalities. IMPRESSION: No acute cardiopulmonary abnormalities. Signed by: Dr. Jinny Clark M.D. on 03/26/2018 3:03 PM Dictated By: JINNY CLARK MD 1503 Transcribed By: ARMANDO on 03/26/18 1503 COPY TO: MORIS MCCARTHY MD ABDOMEN-1VIEW (KUB) 2018-01-14 10:42:00 [place] [id number] [place] [address] Patient Name: DENY STEPHENSON JR MR #: [id number] : 1940 Age/Sex: 77/M Req #: [id number] Adm Physician: Ordered by: MORIS MCCARTHY MD Report #: [id number] Location: [facility] Room/Bed: Procedure: [id number] DX/ABDOMEN-1VIEW (KUB) Exam Date: 01/14/18 Exam Time: 1020 REPORT STATUS: Signed Exam: KUB. Clinical History: Calculus of kidney Comparison: None Findings: Frontal view of the abdomen demonstrates a nonobstructive bowel gas pattern with moderate retained stool. 1.6 cm stone over the right kidney. Scattered degenerative change about the bones. Impression: 1.6 cm stone over the right kidney. Signed by: Dr. Han Reeves M.D. on 01/14/2018 10:45 AM Dictated By: HAN REEVES MD, MD Transcribed By: ARMANDO on 01/14/18 1045 COPY TO: MORIS MCCARTHY MD CT CHEST WO 2017-11-02 11:52:[address] [address] Patient Name: DENY STEPHENSON JR MR #: [id number] : 1940 Age/Sex: 76/M [facility] #: [id number] Req #: [id number] [facility] Physician: Ordered by: IVORY ROBB MD Report #: [id number] Location: CT Room/Bed: Procedure: [id number] CT/CT CHEST WO Exam Date: 11/02/17 Exam Time: 1010 REPORT STATUS: Signed EXAM: CT Chest WITHOUT contrast INDICATION: COMPARISON: CT abdomen/pelvis dated 10/01/2017 TECHNIQUE: Chest was scanned utilizing a multidetector helical scanner from the lung apex through the level of the adrenal glands without administration of IV contrast. Absence of intravenous contrast decreases sensitivity for detection of lymphadenopathy and vascular pathology. Coronal and sagittal reformations were obtained. Routine protocol was performed. IV CONTRAST: None COMPLICATIONS: None RADIATION DOSE: Total DLP: 471.50 mGy*cm Estimated effective dose: (DLP x 0.014 x size factor) mSv CTDIvol has been reviewed. It is below the limits set by the Radiation Protocol Committee (RPC). FINDINGS: LINES/ TUBES: None. LUNGS AND AIRWAYS: The lungs are unremarkable. Unchanged nonspecific 4 mm posterior right base nodule (series 3, image 111). Punctate right lower lobe groundglass nodule (series 3, image 83). Airways are normal. PLEURA: The pleural spaces are clear. HEART AND MEDIASTINUM: The thyroid gland is normal. No mediastinal, hilar or axillary lymphadenopathy. The heart is normal in size.. There is no pericardial effusion. Severe atherosclerotic calcification of coronary arteries and possible coronary stent in place. UPPER ABDOMEN: Mildly thickened adrenal glands, likely due to hyperplasia. Renal cysts and right renal calculi. BONES: The visualized bony thorax is within normal limits. SOFT TISSUES: Unremarkable. IMPRESSION: 1. Nonspecific right lower lobe nodules. Without risk factors, no follow-up is necessary. With risk factors, follow-up with low-dose chest CT in one year is optional. 2. Redemonstration of right nephrolithiasis. Signed by: Dr. Luisito Carolina MD on 11/02/2017 12:02 PM Dictated By: LUISITO CAROLINA MD 120 Transcribed By: ARMANDO on 11/02/171201 COPY TO: IVORY ROBB MD CT ABDOMEN/PELVIS WO 2017-10-01 14:42:00 [place] [address] Patient Name: DENY STEPHENSON JR MR #: [id number] : 1940 Age/Sex: 76/M Req #: [id number] Adm Physician: Ordered by: MORIS MCCARTHY MD Report #: [id number] Location: CT Room/Bed: Procedure: [id number] CT/CT ABDOMEN/PELVIS WO Exam Date: 10/01/17 Exam Time: 939 REPORT STATUS: Signed PROCEDURE: CT ABDOMEN AND PELVIS WITHOUT CONTRAST TECHNIQUE: The abdomen and pelvis were scanned utilizing a multidetector helical scanner from the diaphragm to the lesser trochanter after the oral administration of water. No IV contrast was administered per protocol. Coronal and sagittal multiplanar reformations were obtained. COMPARISON: None. INDICATIONS: CALCULUS OF KIDNEY FINDINGS: ABSENCE OF INTRAVENOUS CONTRAST DECREASES SENSITIVITY FOR DETECTION OF FOCAL LESIONS AND VASCULAR PATHOLOGY. LOWER THORAX: 2-3 mm noncalcified nodule in the posterior right lower lobe (series 3, image 29). Atherosclerotic calcification of the coronary arteries. HEPATOBILIARY: No focal hepatic lesions. No biliary ductal dilatation. Gallbladder is unremarkable. SPLEEN: No splenomegaly. PANCREAS: No focal masses or ductal dilatation. ADRENALS: Mild thickening of bilateral adrenal glands, without focal lesions. KIDNEYS/URETERS: Right: There is an approximately 1.9 x 1.6 x 1.6 cm fluid density structure in the superior pole of the right kidney which contains 5 oval-shaped calcific densities ranging in size from 0.4-0.9 cm (series 3, images 43-46). No other renal or ureteral calculi. No hydronephrosis or obstruction. 1.1 cm partially exophytic fluid density lesion in the interpolar region (coronal image 58). 0.6 cm partially exophytic fluid density lesion in the posterior interpolar region (series 3, image 55). Left: No renal or ureteral calculi, hydronephrosis, or obstruction. Several fluid density simple cysts are noted, as follows: * 1.8 x 1.7 cm cyst in the anterior, superior to mid aspect (series 3, image 49). * 1.5 x 1.2 cm simple cyst in the interpolar region (series 3, image 54). * 2.6 x 2.4 cm and 1.7 x 1.7 cm simple cysts in the posteromedial mid to inferior aspect (series 3, image 64). * 1.7 x 1.6 cm simple cyst in the inferior pole (series 3, image 70). PELVIC ORGANS/BLADDER: The bladder shows no focal lesions or significant wall thickening for degree of distention. Prostate is grossly unremarkable.. PERITONEUM / RETROPERITONEUM: No free air or fluid. LYMPH NODES: No lymphadenopathy. VESSELS: Focal ectasia of the infrarenal abdominal aorta which measures approximately 3.0 x 3.0 cm (series 3, image 70). GI TRACT: No bowel dilation or evidence of obstruction. BONES AND SOFT TISSUES: No aggressive lytic lesions. Multilevel degenerative disc changes in the lumbosacral spine, worse at L3 through S1. Moderate degenerative changes in the right hip joint with moderate cystic degenerative changes in the right femoral head and acetabulum. Soft tissues are unremarkable. IMPRESSION: 1. Findings in the superior pole of the right kidney may represent a dilated calyx with multiple dependent calculi versus remnants of prior staghorn calculus. No prior films are available for comparison. 2. No other renal, or any ureteral calculi, hydronephrosis, or obstruction. 3. Bilateral simple renal cysts. 4. 2-3 mm nodule in the posterior right lower lobe. If this is a low risk patient, no further followup is indicated per Fleischner Society 2017 guidelines. 5. Mild thickening of bilateral adrenal glands, likely reflecting mild hyperplasia. Jinny Clark M.D. Dictated by: Jinny Clark M.D. on 10/01/2017 at 14:42 Electronically approved by: Jinny Clark M.D. on 10/01/2017 at 14:42 Dictated By: JINNY CLARK MD 1442 Transcribed By: JONAH on 10/01/17 1442 COPY TO: MORIS MCCARTHY MD
--- NOTE | 2018-04-13 06:51 | Diagnostic Imaging Report ---
ABDOMEN-1VIEW (KUB) Clinical history: Stones Technique: AP view abdomen Comparison: 01/14/2018 Findings: Abdomen: Nonobstructive bowel gas pattern. Other: Stable cluster of stones projecting over the right superior kidney, largest 1.1 cm. Scattered degenerative changes, most notable of the lumbar spine and right hip. Impression: Stable cluster of stones over the right superior kidney, possibly within a calyceal diverticulum. Signed by: Dr Almaz Mg MD on 04/13/2018 6:47 AM
[2018-04-13 09:25] VITALS: BP 98/55
--- NOTE | 2018-05-10 12:04 | Operative Report ---
DATE OF PROCEDURE: 04/13/2018 SURGEON: Jonathan Beth MD PREOPERATIVE DIAGNOSES: 1. Right nephrolithiasis. 2. Microscopic hematuria. POSTOPERATIVE DIAGNOSES: 1. Right nephrolithiasis. 2. 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 3. Microhematuria. OPERATIONS PERFORMED: 1. Cystourethroscopy with bilateral ureteral catheterization and retrograde ureteropyelography (surgery performed for microhematuria). 2. Right flexible ureteropyeloscopy with holmium laser lithotripsy of stricture of the intrarenal collecting system making an opening for the large calyceal diverticulum with large hard stones. 3. Right ureteroscopy with holmium laser lithotripsy and insertion of stent (surgery performed for large nephrolithiasis). 4. Radiological services with supervision and interpretation of ureteroscopy. ANESTHESIA: General. COMPLICATIONS: None. CLINICAL SUMMARY: Erwin Barnes Jr. is a 77-year-old man with nephrolithiasis. Bistro Attendant refused to allow us to hold the patient's blood thinners due to cardiac stents, therefore ESWL could not be performed and therefore ureteroscopy was necessitated. The patient was brought to the operating room for management of his stone. He has large stone burden. He is aware of the risks of bleeding, infection, injury to the adjacent structures, and need for additional procedures, and elected to proceed. OPERATIVE PROCEDURE IN DETAIL: Informed consent was verified. Erwin Barnes Jr. was properly identified, taken to the operating room, and placed on the cystoscopy table in supine position. Anesthesia was uneventfully begun. The patient was then carefully and gently repositioned in the dorsal lithotomy position with all pressure points well padded. His genitalia were prepared and draped in the usual sterile fashion. A 22.5 Azeri cystoscope sheath with a visual obturator in place was atraumatically inserted into the patient's urethra. It was guided unremarkably into the distal urethra through some wide caliber not clinically significant stricture disease at the bulbar region through his normal sphincteric region through the prostatic bed, which was relatively open being status post prior photoselective vaporization of the prostate. The patient's bladder neck with prior history of TUR bladder neck, contracture was wide open. Went to the patient's bladder, where panendoscopy revealed grade 1 to 2 trabeculations, but no tumors, no stones, and no diverticula and normally positioned configured ureteral orifices were identified. A ureteral catheter was used to cannulate each ureter and retrograde ureteropyelography was performed. Interpretation of Retrograde Ureteropyelography: Contrast was instilled in retrograde fashion bilaterally. The left side was unremarkable. There were no tumors, no stones, no diverticula, and no obstructive drainage was observed fluoroscopically. The right hand side was significant for normal ureter and a calyceal system that was fairly unremarkable except for a very large calyceal diverticulum with multiple filling defects present off the upper pole calyx. Guidewire was left in place. Flexible ureteroscopy was then performed. The ureteroscope was brought up over the guidewire up into the kidney, where panendoscopy revealed Gibson's plaques throughout, but there were no tumors and no stones within normal collecting system except for the pinhole off the upper pole calyx. We then utilized a holmium laser to open up this pinhole and make it into a substantial wide open passage. Once this was performed, we placed the ureteroscope into the calyceal diverticulum and identified the very large stone. The stone was unusual shape and unusual configuration. The holmium laser lithotripsy was then performed of this very large, very hard stone until it progressively was fragmented into smaller fragments. Once we were able to fully fragment the stone, with subsequent fluoroscopic guidance, a right-sided indwelling ureteral stent was then placed. It was coiled in the calyceal diverticulum as well as in the patient's bladder. The retaining suture was cut short. The patient's bladder was drained. The cystoscope was withdrawn. The belladonna and opium suppository was placed revealing a 40 g prostate that is smooth, nonfunctional without any nodules. The patient was then uneventfully reversed from anesthesia and taken to the recovery room in stable condition. There were no complications to the procedure. He tolerated the procedure well. Exclusive postoperative instructions were given. I will plan on returning the patient to the operating room in approximately a month to remove his stent and proceed with another ureteroscopy and manage any residual stone burden as needed. Ongoing urological followup of course is a must. Jonathan Beth MD [place]/MODL /[id number]
== END | disposition home or self-care (01) ==
LOC: OR 05:07
PROVIDERS: ATTEND Urology
DX: N20.0 Calculus of kidney (principal); N13.5 Crossing vessel and stricture of ureter without hydronephrosis; N32.89 Other specified disorders of bladder; I10 Essential (primary) hypertension; E78.5 Hyperlipidemia, unspecified; I25.10 Atherosclerotic heart disease of native coronary artery without angina pectoris; I25.2 Old myocardial infarction; Z01.810 Encounter for preprocedural cardiovascular examination; Z01.812 Encounter for preprocedural laboratory examination; Z01.818 Encounter for other preprocedural examination; Z79.82 Long term (current) use of aspirin; Z79.02 Long term (current) use of antithrombotics/antiplatelets; Z98.890 Other specified postprocedural states; Z95.5 Presence of coronary angioplasty implant and graft
CPT/HCPCS: 36415; 52356; 71046; 74420; 83970; 84550; 93005; C1766; C2617; J0696; J1100; J2001; J2250; J2405; J2704; Q9967; 74018

== ENCOUNTER → 2018-05-14 | Day surgery (SDC) | payer MEDICARE ==
[2018-05-12 13:51] LABS: BASOPHILS % 0.7 % (0.0-1.0); EOSINOPHILS # (AUTO) 0.3 (0.0-0.4); EOSINOPHILS % 5.8 % (0.0-6.0); HEMATOCRIT 44.6 % (38.2-49.6); HEMOGLOBIN 14.7 g/dL (14.0-18.0); LYMPHOCYTES # (AUTO) 1.3 (1.0-3.2); LYMPHOCYTES % 22.8 % (18.0-39.1); MEAN CORPUSCULAR VOLUME 94.1 fL (81-99); MONOCYTES # (AUTO) 0.8 (0.2-0.8); MONOCYTES % 13.8 % (4.4-11.3); NEUTROPHILS # (AUTO) 3.2 (2.1-6.9); NEUTROPHILS % 56.7 % (38.7-80.0); PLATELET COUNT 187 x10e3/uL (140-360); RED BLOOD COUNT 4.74 x10e6/uL (4.3-5.7)
--- NOTE | 2018-05-12 15:29 | Diagnostic Imaging Report ---
KUB - 2 views Clinical history: Pre-admit, history of renal stones. Comparison: KUB 04/13/18. Findings: Interval placement of a right-sided internal ureteral stent with proximal pigtail overlying the right kidney and the distal pigtail overlying the bladder. There are a cluster of stones over the mid kidney, measuring up to 2.2 x 1.6 cm in aggregate. The cluster project at the proximal pigtail. There are additional calcifications projecting over the right lower pole kidney, measuring up to 0.7 cm. No evidence of calcification overlying the expected course of the ureters. There are atherosclerotic vascular calcifications. Nonobstructive bowel gas pattern. Scattered degenerative changes are noted. Impression: Interval placement of right sided internal ureteral stent. Cluster of stones in the right mid kidney projecting at the proximal pigtail. Signed by: Dr. Shawn Siddiqui MD on 05/12/2018 3:26 PM
[~2018-05-14] MED LIST changes: -CEFTRIAXONE SOD 1 GM/NS 50 ML 0 ML IV ONE; +EPHEDRINE SULFATE INJ 50 MG/10 ML SYR ONE; +GENTAMICIN 80MG/NS 100 ML 100 ML IV ONE; +MEPERIDINE HCL INJ 25 MG/ML VIAL ONE
--- OUTSIDE RECORDS SUMMARY | 2018-05-14 06:18 | XMS REPORT | Clinical Summary ---
Author Author [facility] Address Unknown Phone Unavailable Care Team Providers Care Funeral Director/Embalmer Name Role Phone PCP Unavailable Allergies Not [...] Date Type Specialty Rusty Mcdonald MD 1975 [facility] [address] [place] [address] [phone] 06/25/2018 Hospital Encounter Rusty Mcdonald MD 1975 [facility] [address] [place] [address] [phone] REPAIR,EXTROPIAN EXTENSIVE 06/25/2018 Surgery Results Not on fileafter 05/13/2017 Insurance Payer Benefit Subscriber ID Type Phone Address Plan / Group BLUE CROSS/BLUE SHIELD - BCBS xxxxxxxxxxxx MEDICARE MGD CARE MEDICARE ADVANTAGE
--- OUTSIDE RECORDS SUMMARY | 2018-05-14 06:19 | XMS REPORT | Continuity of Care Document ---
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, LUMBAR REGION Active 07/27/2017 [facility] LUMBAGO Active 07/21/2017 [facility] LUMAGO Active 07/21/2017 [facility] HIP PAIN Active 07/16/2017 [facility] NOSE BLEED Active 03/01/2016 [facility] EPISTAXIS, RECURRENT, HYPERTENSION, UNCO Active 03/01/2016 [facility] UNK Active 11/15/2015 [facility] STEMI Active 10/29/2015 [facility] SENT, ABN LABS Active 10/29/2015 [facility] Myocardial infarction Resolved 10/27/2015 Problem 04/20/2018 [facility] Chest pain Active Problem 04/20/2018 [facility] CAD (<span ID="[id number]">Confirmed</span>) Active Problem 04/20/2018 [facility] Hyperlipidemia Active Problem 04/20/2018 [facility] Hypertension Active Problem 04/20/2018 [facility] Testosterone Active Problem 04/20/2018 [facility] Low back pain 04/20/2018 [facility] Muscle weakness 04/20/2018 [facility] SUBSEQUENT STEMI OF ANTERIOR WALL Active [facility] EPISTAXIS Active [facility] Medications Medication Details Route Status Patient Instructions Ordering Provider Order Date Source ferrous sulfate 325 MG Oral Tablet [Feosol] 325 mg, 1 tab, Route: PO, Drug form: ECTAB, Daily, Dosing Weight 64.091, kg, Start date: 03/05/16 9:00:00 [employer], Duration: 30 day, Stop date: 04/03/16 9:00:00 CSTNotes: Give with food. "Do Not Crush" No Longer Active 03/05/2016 [facility] ferrous sulfate 325 MG Oral Tablet [Feosol] 325 mg=1 tab, PO, Daily, # 30 tab, 0 Refill(s) Active 03/04/2016 [facility] Amoxicillin 875 MG / Clavulanate 125 MG Oral Tablet [Augmentin 875-mg] 1 tab, PO, [id number], # 10 tab, 0 Refill(s) Active 03/04/2016 [facility] clopidogrel 75 mg oral tablet 75 mg=1 tab, PO, Daily, # 30 tab, 1 Refill(s) Active 03/04/2016 [facility] carvedilol 3.125 mg oral tablet 6.25 mg=2 tab, PO, Q12H, # 120 tab, 1 Refill(s) Active 03/04/2016 [facility] atorvastatin 40 mg oral tablet 80 mg=2 tab, PO, Bedtime, 0 Refill(s) Active 03/04/2016 [facility] aspirin 81 mg tablet, enteric coated 81 mg=1 tab, PO, Daily, 0 Refill(s) Active 03/04/2016 [facility] Famotidine 20 MG Oral Tablet [Pepcid] 20 mg, 1 tab, Route: PO, Drug form: TAB, Bedtime, Dosing Weight 64.091, kg, Start date: 03/03/16 21:00:00 [employer], Duration: 30 day, Stop date: 04/01/16 21:00:00 CSTNotes: (Same as: Pepcid) No Longer Active 03/04/2016 [facility] Lactulose 667 MG/ML Oral Solution 10 gm, 15 mL, Route: PO, Drug Form: SYRP, Dosing Weight 64.091, kg, BID, Start date: 03/03/16 17:00:00 [employer], Duration: 30 day, Stop date: 04/02/16 9:00:00 CSTNotes: (Same as:Chronulac) No Longer Active 03/03/2016 [facility] Plavix 75 mg, 1 tab, Route: PO, Drug form: TAB, Daily, Dosing Weight 64.091, kg, Priority: NOW, Start date: 03/03/16 14:33:00 [employer], Duration: 30 day, Stop date: 04/02/16 9:00:00 CSTNotes: (Same As: Plavix) No Longer Active 03/03/2016 [facility] potassium phosphate-sodium phosphate 250 mg-280 mg-160 mg oral powder for reconstitution 1 pkt, Route: PO, Drug Form: PDR/REC, Dosing Weight 64.091, kg, ONCE, Start date: 03/03/16 9:23:00 [employer], Stop date: 03/03/16 9:23:00 CSTNotes: (Same as: Phos-NaK) Each 1.5 gm pkt has 250mg phosphorous. Mix w/2.5oz water and stir. Inactive 03/03/2016 [facility] atorvastatin 80 mg, 2 tab, Route: PO, Drug form: TAB, Bedtime, Dosing Weight 64.091, kg, Start date: 03/02/16 21:00:00 [employer], Duration: 30 day, Stop date: 03/31/16 21:00:00 CSTNotes: (Same as: Lipitor) No Longer Active 03/03/2016 [facility] Zithromax 500 mg, Route: IVPB, [id number], Dosing Weight 64.091, kg, Start date: 03/02/16 11:00:00 [employer], Duration: 30 day, Stop date: 03/31/16 11:00:00 CSTNotes: (Same As: Zithromax IV) No Longer Active 03/02/2016 [facility] aspirin 81 mg tablet, enteric coated 81 mg, 1 tab, Route: PO, Drug form: ECTAB, Daily, Dosing Weight 64.091, kg, Priority: NOW, Start date: 03/02/16 10:14:00 [employer], Duration: 30 day, Stop date: 04/01/16 9:00:00 CSTNotes: Do not crush or chew. (Same As: Ecotrin) No Longer Active 03/02/2016 [facility] carvedilol 6.25 mg, 2 tab, Route: PO, Drug form: TAB, Q12H, Dosing Weight 64.091, kg, Start date: 03/02/16 9:00:00 [employer], Stop date: 03/31/16 21:00:00 CSTNotes: Give with food. (Same As: Coreg) No Longer Active 03/02/2016 [facility] Amoxicillin 875 MG / Clavulanate 125 MG Oral Tablet [Augmentin 875-mg] 1 tab, Route: PO, Drug Form: TAB, Dosing Weight 64.091, kg, [id number], Start date: 03/02/16 2:00:00 [employer], Duration: 30 day, Stop date: 03/31/16 14:00:00 CSTNotes: With food. (Same as: Augmentin 875) No Longer Active 03/02/2016 [facility] ondansetron (ANES) Route: IV, Drug form: INJ, ONCE, Stop date: 03/02/16 0:57:00 [employer] Inactive 03/02/2016 [facility] EPINEPHrine (ANES) Route: IV, Drug form: INJ, ONCE, Stop date: 03/02/16 0:49:00 [employer] Inactive 03/02/2016 [facility] succinylcholine (ANES) Route: IV, Drug form: INJ, ONCE, Stop date: 03/02/16 0:19:00 [employer] Inactive 03/02/2016 [facility] propofol (ANES) Route: IV, Drug form: INJ, ONCE, Stop date: 03/02/16 0:19:00 [employer] Inactive 03/02/2016 [facility] fentaNYL (ANES) Route: IV, Drug form: INJ, ONCE, Stop date: 03/02/16 0:14:00 [employer] Inactive 03/02/2016 [facility] phenylephrine (ANES) Route: IV, Drug form: INJ, ONCE, Stop date: 03/02/16 0:14:00 [employer] Inactive 03/02/2016 [facility] norepinephrine (ANES) Route: IV, Drug form: INJ, ONCE, Stop date: 03/02/16 0:14:00 [employer] Inactive 03/02/2016 [facility] lidocaine (ANES) Route: IV, Drug form: INJ, ONCE, Stop date: 03/02/16 0:14:00 [employer] Inactive 03/02/2016 [facility] sodium chloride 0.9% 1000 ml INJ (ANES) Route: IV, Total Volume: 1,000, Start date: 03/01/16 23:55:00 [employer], Stop date: 03/02/16 0:55:00 [employer] No Longer Active 03/02/2016 [facility] Morphine 2 mg, Route: IVP, Q5Min, Dosing Weight 64.091, kg, PRN Pain Score 4-6, Start date: 03/01/16 23:48:00 [employer], Duration: 5 doses or times, Stop date: Limited # of times No Longer Active 03/02/2016 [facility] Promethazine 6.25 mg, Route: IVPB, ONCE, Dosing Weight 64.091, kg, PRN Nausea & Vomiting, Start date: 03/01/16 23:48:00 [employer] No Longer Active 03/02/2016 [facility] Flumazenil 0.2 mg, Route: IVP, PRN, Dosing Weight 64.091, kg, PRN Benzodiazepine Reversal, Initial dose, Start date: 03/01/16 23:48:00 [employer], Duration: 30 day, Stop date: 03/31/16 23:47:00 [employer] No Longer Active 03/02/2016 [facility] Fentanyl 50 microgram, Route: IVP, Q5Min, Dosing Weight 64.091, kg, PRN Pain Score 7-10, Priority: Routine, Start date: 03/01/16 23:48:00 [employer], Duration: 2 doses or times, Stop date: Limited # of times No Longer Active 03/02/2016 [facility] Naloxone 0.4 mg, Route: IVP, Q2MIN, Dosing Weight 64.091, kg, PRN Narcotic Reversal, Start date: 03/01/16 23:48:00 [employer], Duration: 8 doses or times, Stop date: Limited # of times No Longer Active 03/02/2016 [facility] Hydromorphone 0.5 mg, Route: IVP, Q5Min, Dosing Weight 64.091, kg, PRN Pain Score 7-10, Start date: 03/01/16 23:48:00 [employer], Duration: 4 doses or times, Stop date: Limited # of times No Longer Active 03/02/2016 [facility] Ondansetron 4 mg, Route: IVP, ONCE, Dosing Weight 64.091, kg, PRN Nausea & Vomiting, Start date: 03/01/16 23:48:00 [employer] No Longer Active 03/02/2016 [facility] Acetaminophen 1,000 mg, Route: IVPB, Drug form: INJ, ONCE, Dosing Weight 64.091, kg, PRN Pain Score 1-3, Start date: 03/01/16 23:48:00 [employer], Duration: 1 doses or times, Stop date: Limited # of times No Longer Active 03/02/2016 [facility] D5W 1/2NS 1000 ml INJ (ANES) Route: IV, Total Volume: 1,000, Start date: 03/01/16 23:00:00 [employer], Stop date: 03/02/16 0:00:00 [employer] No Longer Active 03/02/2016 [facility] Reglan 10 mg, 2 mL, Route: IVP, Drug form: INJ, Q6H, Dosing Weight 64.091, kg, PRN Nausea, Start date: 03/01/16 21:54:00 [employer], Duration: 30 day, Stop date: 03/31/16 21:53:00 CSTNotes: (Same as: Reglan) No Longer Active 03/02/2016 [facility] D5NS 1,000 mL 1,000 mL, Rate: 125 ml/hr, Infuse over: 8 hr, Route: IV, Dosing Weight 64.091 kg, Total Volume: 1,000, Start date: 03/01/16 21:24:00 [employer], Duration: 30 day, Stop date: 03/31/16 21:23:00 [employer] No Longer Active 03/02/2016 [facility] Saline Flush 0.9% 10 ml, Route: IVP, Drug Form: INJ, Dosing Weight 64.091, kg, PRN, PRN Line Flush, Start date: 03/01/16 21:24:00 [employer], Duration: 30 day, Stop date: 03/31/16 21:23:00 CSTNotes: (Same as: BD Posiflush) No Longer Active 03/02/2016 [facility] Acetaminophen 650 mg, 2 tab, Route: PO, Drug form: TAB, Q4H, Dosing Weight 64.091, kg, PRN Pain 1-3/Temp > 100.4 F, Start date: 03/01/16 21:24:00 [employer], Duration: 30 day, Stop date: 03/31/16 21:23:00 CSTNotes: Do not exceed 4 gm/day. (Same as: Tylenol) No Longer Active 03/02/2016 [facility] Morphine 2 mg, 1 mL, Route: IVP, Drug form: INJ, Q4H, Dosing Weight 64.091, kg, PRN Pain Score 7-10, Start date: 03/01/16 21:24:00 [employer], Duration: 30 day, Stop date: 03/31/16 21:23:00 CSTNotes: (Same as:MORPhine Sulfate) No Longer Active 03/02/2016 [facility] Ondansetron 4 mg, 2 mL, Route: IVP, Drug form: INJ, Q6H, Dosing Weight 64.091, kg, PRN Nausea & Vomiting, Start date: 03/01/16 21:24:00 [employer], Duration: 30 day, Stop date: 03/31/16 21:23:00 CSTNotes: (Same as: Zofran) MEDICATION WASTE Product Size: 4 mg Product Wasted: ___ mg No Longer Active 03/02/2016 [facility] Docusate 100 mg, 1 cap, Route: PO, Drug form: CAP, BID, Dosing Weight 64.091, kg, PRN Constipation, Start date: 03/01/16 21:24:00 [employer], Duration: 30 day, Stop date: 03/31/16 21:23:00 CSTNotes: (Same as: Colace) (Do Not Crush) No Longer Active 03/02/2016 [facility] D5W 1/2NS 1,000 mL 1,000 mL, Rate: 100 ml/hr, Infuse over: 10 hr, Route: IV, Dosing Weight 64.091 kg, Total Volume: 1,000, Start date: 03/01/16 20:51:00 [employer], Duration: 30 day, Stop date: 03/31/16 20:50:00 [employer] No Longer Active 03/02/2016 [facility] Zofran 4 mg, 2 mL, Route: IVP, Drug form: INJ, ONCE, Dosing Weight 64.091, kg, Start date: 03/01/16 20:39:00 [employer], Stop date: 03/01/16 20:39:00 CSTNotes: (Same as: Zofran) MEDICATION WASTE Product Size: 4 mg Product Wasted: ___ mg Inactive 03/02/2016 [facility] prasugrel 10 mg, 1 tab, Route: PO, Drug form: TAB, Daily, Dosing Weight 62.273, kg, Start date: 12/11/15 9:00:00 CDT, Duration: 30 day, Stop date: 01/09/16 9:00:00 CDTNotes: Same as Effient For patients 60kg, w ithout history of TIA/Ischemic stroke and without likely bypass surgery No Longer Active 12/11/2015 [facility] Aspirin 81 MG Enteric Coated Tablet 81 mg, 1 tab, Route: PO, Drug form: ECTAB, Daily, Dosing Weight 62.273, kg, Start date: 12/11/15 9:00:00 CDT, Duration: 30 day, Stop date: 01/09/16 9:00:00 CDTNotes: Do not crush or chew. (Same As: Ecotrin) No Longer Active 12/11/2015 [facility] carvedilol 3.125 mg, 1 tab, Route: PO, Drug form: TAB, Q12H, Dosing Weight 62.273, kg, Start date: 12/10/15 21:00:00 CDT, Duration: 30 day, Stop date: 01/09/16 9:00:00 CDTNotes: Give with food. (Same As: Coreg) Inactive 12/11/2015 [facility] atorvastatin 80 mg, 2 tab, Route: PO, Drug form: TAB, Bedtime, Dosing Weight 62.273, kg, Start date: 12/10/15 21:00:00 CDT, Duration: 30 day, Stop date: 01/08/16 21:00:00 CDTNotes: (Same as: Lipitor) Inactive 12/11/2015 [facility] Morphine 2 mg, 1 mL, Route: IVP, Drug form: INJ, Q4H, Dosing Weight 62.273, kg, PRN Pain Score 6-10, Priority: Routine, Start date: 12/10/15 13:02:00 CDT, Duration: 30 day, Stop date: 01/09/16 13:01:00 CDTNotes: (Same as:MORPhine Sulfate) Inactive 12/10/2015 [facility] Zofran 4 mg, 2 mL, Route: IVP, Drug form: INJ, Q8H, Dosing Weight 62.273, kg, PRN Nausea, Start date: 12/10/15 13:02:00 CDT, Duration: 30 day, Stop date: 01/09/16 13:01:00 CDTNotes: (Same as: Zofran) MEDICATION WASTE Product Size: 4 mg Product Wasted: ___ mg Inactive 12/10/2015 [facility] Hydralazine 10 mg, 0.5 mL, Route: IV, Drug form: INJ, Q4H, Dosing Weight 62.273, kg, PRN Hypertension, Priority: Routine, Start date: 12/10/15 13:01:00 CDT, Duration: 30 day, Stop date: 01/09/16 13:00:00 CDTNotes: (Same as: Apresoline) Push over 5 minutes Inactive 12/10/2015 [facility] sodium chloride 0.9% 1000 ml INJ 1,000 mL 1,000 mL, Rate: 100 ml/hr, Infuse over: 10 hr, Route: IV, Dosing Weight 62.273 kg, Total Volume: 1,000, Start date: 12/10/15 12:01:00 CDT, Duration: 30 day, Stop date: 01/09/16 12:00:00 CDT Inactive 12/10/2015 [facility] atorvastatin 80 mg oral tablet 80 mg=1 tab, PO, Bedtime, # 30 tab, 0 Refill(s) Active 10/31/2015 [facility] prasugrel 10 mg oral tablet 10 mg=1 tab, PO, Daily, # 30 tab, 0 Refill(s) Active 10/31/2015 [facility] Docusate Sodium 100 MG Oral Capsule [Colace] 100 mg=1 cap, PO, BID, to prevent constipation., # 60 cap, 0 Refill(s) Active 10/31/2015 [facility] carvedilol 3.125 mg oral tablet 3.125 mg=1 tab, PO, Q12H, # 60 tab, 0 Refill(s) Active 10/31/2015 [facility] Aspirin 81 MG Enteric Coated Tablet 81 mg=1 tab, PO, Daily, # 30 tab, 0 Refill(s) Active 10/31/2015 [facility] Coreg 3.125 mg, 1 tab, Route: PO, Drug form: TAB, Q12H, Dosing Weight 63.182, kg, Start date: 10/30/15 10:00:00 CDT, Duration: 30 day, Stop date: 11/29/15 9:00:00 CDTNotes: Give with food. (Same As: Coreg) No Longer Active 10/30/2015 [facility] Streptococcus pneumoniae serotype 1 capsular antigen diphtheria [id number] protein conjugate vaccine / Streptococcus pneumoniae serotype 14 capsular antigen diphtheria OHE205 protein conjugate vaccine / Streptococcus pneumoniae serotype 18C capsular antigen d 0.5 mL, Route: IM, Drug Form: INJ, Daily, Start date: 10/30/15 9:00:00 CDT, Duration: 1 doses or times, Stop date: 10/30/15 9:00:00 CDTNotes: Lightly roll vial (DO NOT SHAKE) before administration. (Same as: Prevnar 13) Inactive 10/30/2015 [facility] Aspirin 81 MG Enteric Coated Tablet 81 mg, 1 tab, Route: PO, Drug form: ECTAB, Daily, Dosing Weight 63.182, kg, Start date: 10/30/15 9:00:00 CDT, Duration: 30 day, Stop date: 11/28/15 9:00:00 CDTNotes: Do not crush or chew. (Same As: Ecotrin) No Longer Active 10/30/2015 [facility] Docusate Sodium 100 MG Oral Capsule [Colace] 100 mg, 1 cap, Route: PO, Drug form: CAP, BID, Dosing Weight 63.182, kg, Start date: 10/30/15 9:00:00 CDT, Duration: 30 day, Stop date: 11/28/15 17:00:00 CDTNotes: (Same as: Colace) (Do Not Crush) No Longer Active 10/30/2015 [facility] Effient 10 mg, 1 tab, Route: PO, Drug form: TAB, Daily, Dosing Weight 63.182, kg, Priority: Routine, Start date: 10/30/15 9:00:00 CDT, Duration: 30 day, Stop date: 11/28/15 9:00:00 CDTNotes: Same as Effient For patients 60kg, without history of TIA/Ischemic stroke and without likely bypass surgery No Longer Active 10/30/2015 [facility] Lipitor 80 mg, 2 tab, Route: PO, Drug form: TAB, Bedtime, Dosing Weight 63.182, kg, Start date: 10/29/15 21:00:00 CDT, Duration: 30 day, Stop date: 11/27/15 21:00:00 CDTNotes: (Same as: Lipitor) No Longer Active 10/30/2015 [facility] pravastatin 10 mg oral tablet 10 mg=1 tab, PO, Bedtime, 0 Refill(s) No Longer Active 10/29/2015 [facility] 60 ACTUAT Testosterone 12.5 MG/ACTUAT Topical Gel [Androgel] 4 pumps, TOP, QAM, 0 Refill(s) No Longer Active 10/29/2015 [facility] Hydralazine 10 mg, 0.5 mL, Route: IV, Drug form: INJ, Q4H, Dosing Weight 63.182, kg, PRN Hypertension, Priority: Routine, Start date: 10/29/15 15:57:00 CDT, Duration: 30 day, Stop date: 11/28/15 15:56:00 CDTNotes: (Same as: Apresoline) Push over 5 minutes No Longer Active 10/29/2015 [facility] sodium chloride 0.9% 1000 ml INJ 1,000 mL 1,000 mL, Rate: 100 ml/hr, Infuse over: 10 hr, Route: IV, Dosing Weight 63.182 kg, Total Volume: 1,000, Start date: 10/29/15 13:25:00 CDT, Duration: 2 day, Stop date: 10/31/15 13:24:00 CDT No Longer Active 10/29/2015 [facility] Zofran 4 mg, 2 mL, Route: IVP, Drug form: INJ, Q8H, Dosing Weight 63.182, kg, PRN Nausea, Start date: 10/29/15 13:25:00 CDT, Duration: 30 day, Stop date: 11/28/15 13:24:00 CDTNotes: (Same as: Zofran) MEDICATION WASTE Product Size: 4 mg Product Wasted: ___ mg No Longer Active 10/29/2015 [facility] heparin 4,000 unit, 4 mL, Route: IV, Drug form: INJ, ONCE, Dosing Weight 63.182, kg, Priority: STAT, Start date: 10/29/15 11:30:00 CDT, Stop date: 10/29/15 11:30:00 CDT Inactive 10/29/2015 [facility] Heparin - one time bolus for ACS 3,800 unit, 3.8 mL, Route: IV, Drug form: INJ, ONCE, Dosing Weight 63.182, kg, Priority: STAT, Start date: 10/29/15 11:08:00 CDT, Stop date: 10/29/15 11:08:00 CDT Inactive 10/29/2015 [facility] Aspirin 81 MG Chewable Tablet 324 mg, Route: CHEW, ONCE, Dosing Weight 63.182, kg, Priority: STAT, Start date: 10/29/15 11:07:00 CDT, Stop date: 10/29/15 11:07:00 CDT Inactive 10/29/2015 [facility] Allergies, Adverse Reactions, Alerts Substance Category Reaction Severity Reaction type Status Date Reported Comments Source Immunizations Immunization Date Given Site Status Last Updated Comments Source pneumococcal 13-valent vaccine 10/30/2015 Right deltoid completed [facility] Results Order Name Results Value Reference Range Date Interpretation Comments Source Spine lumbar wo contrast MRI Spine lumbar wo contrast MRI Patient Name: DENY STEPHENSON : 1940; Age: 76 years y/o Male MR: [id number] Study: Spine lumbar wo contrast MRI 08/06/2017 [...] obstructed dilated calyx contains 3-4 stones. SL: [id number] 08/06/2017 - - Read by: Prabhu Shepherd MD Dictated Date/time: 08/06/17 10:37 Electronically Signed by: Prabhu Shepherd MD 08/06/17 10:48 FINAL REPORT [facility] Abdomen complete US Abdomen complete US Patient Name: DENY STEPHENSON : 1940; Age: 76 years y/o Male MR: [id number] Study: Abdomen complete US 08/06/2017 8:48 AM [...] on the recent lumbar spine radiograph. SL: [id number] 08/06/2017 - - Read by: Thomas Fields MD Dictated Date/time: 08/06/17 12:48 Electronically Signed by: Thomas Fields MD 08/06/17 12:57 FINAL REPORT [facility] Spine lumbar series DX Spine lumbar [...] representing gallstones or right renal calculi. SL: [id number] 07/16/2017 - - Read by: Deny Gomez MD Dictated Date/time: 07/16/17 13:33 Electronically Signed by: Deny Gomez MD 07/16/17 13:35 FINAL REPORT [facility] Hip 2/3 views uni w pelvis [...] severe right hip osteoarthritis. END REPORT SL: [id number] 07/16/2017 - - Read by: Bharathi Roberts MD Dictated Date/time: 07/16/17 13:09 Electronically Signed by: Bharathi Roberts MD 07/16/17 13:10 FINAL REPORT [facility] CHEM PANEL Phosphorus 3.4 mg/dL 2.5 - 4.5 03/04/2016 [facility] ELECTROLYTES AGAP 14.9 meq/L 10.0 - 20.0 03/04/2016 [facility] ELECTROLYTES eGFR 74 mL/min/1.73m2 03/04/2016 Result [...] should be multiplied by the estimated BMI. [facility] ELECTROLYTES Calcium Lvl 7.9 mg/dL 8.5 - 10.5 03/04/2016 [facility] ELECTROLYTES CO2 26 meq/L 24 - 32 03/04/2016 [facility] ELECTROLYTES Chloride Lvl 108 meq/L 95 - 109 03/04/2016 [facility] ELECTROLYTES Sodium Lvl 145 meq/L 135 - 145 03/04/2016 [facility] ELECTROLYTES Potassium Lvl 3.9 meq/L 3.5 - 5.1 03/04/2016 [facility] ELECTROLYTES BUN 16 mg/dL 7 - 22 03/04/2016 [facility] ELECTROLYTES Creatinine Lvl 1.00 mg/dL 0.50 - 1.40 03/04/2016 [facility] ELECTROLYTES Glucose Lvl 109 mg/dL 70 - 99 03/04/2016 [facility] HEMATOLOGY Hct 24.1 % 42.0 - 54.0 03/04/2016 [facility] HEMATOLOGY RDW 13.7 % 11.5 - 14.5 03/04/2016 [facility] HEMATOLOGY MCV 94.6 fL 80.0 - 94.0 03/04/2016 [facility] HEMATOLOGY MCH 32.1 pg 27.0 - 31.0 03/04/2016 [facility] HEMATOLOGY MCHC 34.0 g/dL 32.0 - 36.0 03/04/2016 [facility] HEMATOLOGY Hgb 8.2 g/dL 14.0 - 18.0 03/04/2016 [facility] HEMATOLOGY WBC 9.8 K/CMM 3.7 - 10.4 03/04/2016 [facility] HEMATOLOGY RBC 2.55 M/CMM 4.70 - 6.10 03/04/2016 [facility] HEMATOLOGY MPV 8.8 fL 7.4 - 10.4 03/04/2016 [facility] HEMATOLOGY Platelet 137 K/CMM 133 - 450 03/04/2016 [facility] HEMATOLOGY Lymphocytes # 1.6 K/CMM 1.0 - 5.5 03/04/2016 [facility] HEMATOLOGY Monocytes # 1.1 K/CMM 0.0 - 0.8 03/04/2016 [facility] HEMATOLOGY Monocytes 11.3 % 2.0 - 12.0 03/04/2016 [facility] HEMATOLOGY Eosinophils 2.2 % 0.0 - 4.0 03/04/2016 [facility] HEMATOLOGY Lymphocytes 16.1 % 20.0 - 40.0 03/04/2016 [facility] HEMATOLOGY Basophils 0.4 % 0.0 - 1.0 03/04/2016 [facility] HEMATOLOGY Segs-Bands # 6.9 K/CMM 1.5 - 8.1 03/04/2016 [facility] HEMATOLOGY Segs 70.0 % 45.0 - 75.0 03/04/2016 [facility] HEMATOLOGY Eosinophils # 0.2 K/CMM 0.0 - 0.5 03/04/2016 [facility] HEMATOLOGY Hgb 8.2 g/dL 14.0 - 18.0 03/03/2016 [facility] HEMATOLOGY Hct 25.0 % 42.0 - 54.0 03/03/2016 [facility] CHEM PANEL Phosphorus 2.3 mg/dL 2.5 - 4.5 03/03/2016 [facility] CHEM PANEL Magnesium Lvl 2.2 mg/dL 1.8 - 2.4 03/03/2016 [facility] CHEM PANEL eGFR 59 mL/min/1.73m2 03/03/2016 Result [...] should be multiplied by the estimated BMI. [facility] CHEM PANEL Bili Total 0.7 mg/dL 0.2 - 1.3 03/03/2016 [facility] CHEM PANEL Alk Phos 45 unit/L 39 - 136 03/03/2016 [facility] CHEM PANEL AST 11 unit/L 0 - 37 03/03/2016 [facility] CHEM PANEL Glucose Lvl 123 mg/dL 70 - 99 03/03/2016 [facility] CHEM PANEL ALT 21 unit/L 0 - 65 03/03/2016 [facility] CHEM PANEL Sodium Lvl 144 meq/L 135 - 145 03/03/2016 [facility] CHEM PANEL Globulin 2.7 g/dL 2.7 - 4.2 03/03/2016 [facility] CHEM PANEL A/G Ratio 1.0 0.7 - 1.6 03/03/2016 [facility] CHEM PANEL B/C Ratio 22 6 - 25 03/03/2016 [facility] CHEM PANEL Albumin Lvl 2.8 g/dL 3.5 - 5.0 03/03/2016 [facility] CHEM PANEL Total Protein 5.5 g/dL 6.4 - 8.4 03/03/2016 [facility] CHEM PANEL Calcium Lvl 7.8 mg/dL 8.5 [...] Hct 25.5 % 42.0 - 54.0 03/03/2016 [facility] HEMATOLOGY MCV 93.8 fL 80.0 - 94.0 03/03/2016 [facility] HEMATOLOGY MCH 31.5 pg 27.0 - 31.0 03/03/2016 [facility] HEMATOLOGY MCHC 33.6 g/dL 32.0 - 36.0 03/03/2016 [facility] HEMATOLOGY RDW 13.9 % 11.5 - 14.5 03/03/2016 [facility] HEMATOLOGY WBC 13.5 K/CMM 3.7 - 10.4 03/03/2016 [facility] HEMATOLOGY RBC 2.72 M/CMM 4.70 - 6.10 03/03/2016 [facility] HEMATOLOGY Hgb 8.5 g/dL 14.0 - 18.0 03/03/2016 [facility] HEMATOLOGY Platelet 140 K/CMM 133 - 450 03/03/2016 [facility] HEMATOLOGY MPV 8.6 fL 7.4 - [...] CO2 26 meq/L 24 - 32 03/02/2016 [facility] ELECTROLYTES Globulin 2.7 g/dL 2.7 - 4.2 03/02/2016 [facility] ELECTROLYTES A/G Ratio 1.1 0.7 - 1.6 03/02/2016 [facility] ELECTROLYTES B/C Ratio 32 6 - 25 03/02/2016 [facility] ELECTROLYTES Total Protein 5.7 g/dL 6.4 - 8.4 03/02/2016 [facility] ELECTROLYTES Albumin Lvl 3.0 g/dL 3.5 - 5.0 03/02/2016 [facility] ELECTROLYTES eGFR 54 mL/min/1.73m2 03/02/2016 Result [...] should be multiplied by the estimated BMI. [facility] ELECTROLYTES Alk Phos 52 unit/L 39 - 136 03/02/2016 [facility] ELECTROLYTES ALT 27 unit/L 0 - 65 03/02/2016 [facility] ELECTROLYTES AST 18 unit/L 0 - 37 03/02/2016 [facility] ELECTROLYTES Bili Total 0.4 mg/dL 0.2 - 1.3 03/02/2016 [facility] ELECTROLYTES Creatinine Lvl 1.30 mg/dL 0.50 - 1.40 03/02/2016 [facility] ELECTROLYTES Sodium Lvl 146 meq/L 135 - 145 03/02/2016 [facility] ELECTROLYTES BUN 42 mg/dL 7 - 22 03/02/2016 [facility] ELECTROLYTES Glucose Lvl 159 mg/dL 70 - 99 03/02/2016 [facility] HEMATOLOGY Basophils 0.2 % 0.0 - 1.0 03/02/2016 [facility] HEMATOLOGY Lymphocytes # 0.6 K/CMM 1.0 - 5.5 03/02/2016 [facility] HEMATOLOGY Monocytes # 0.6 K/CMM 0.0 - 0.8 03/02/2016 [facility] HEMATOLOGY Segs-Bands # 8.8 K/CMM 1.5 - 8.1 03/02/2016 [facility] HEMATOLOGY Segs 87.5 % 45.0 - 75.0 03/02/2016 [facility] HEMATOLOGY Lymphocytes 6.4 % 20.0 - 40.0 03/02/2016 [facility] HEMATOLOGY Eosinophils 0.1 % 0.0 - 4.0 03/02/2016 [facility] HEMATOLOGY Monocytes 5.8 % 2.0 - 12.0 03/02/2016 [facility] HEMATOLOGY RBC 3.41 M/CMM 4.70 - 6.10 03/02/2016 [facility] HEMATOLOGY WBC 10.1 K/CMM 3.7 - 10.4 03/02/2016 [facility] HEMATOLOGY MCV 92.3 fL 80.0 - 94.0 03/02/2016 [facility] HEMATOLOGY Platelet 165 K/CMM 133 - 450 03/02/2016 [facility] HEMATOLOGY RDW 13.8 % 11.5 - 14.5 03/02/2016 [facility] HEMATOLOGY MCHC 33.8 g/dL 32.0 - 36.0 03/02/[address] [facility] MCH 31.1 pg 27.0 - 31.0 03/02/2016 [facility] HEMATOLOGY MPV 8.5 fL 7.4 - 10.4 03/02/2016 [facility] HEMATOLOGY Lymphocytes # 0.7 K/CMM 1.0 - 5.5 03/02/2016 [facility] HEMATOLOGY Segs-Bands # 11.3 K/CMM 1.5 - 8.1 03/02/2016 [facility] HEMATOLOGY Monocytes # 0.9 K/CMM 0.0 - 0.8 03/02/2016 [facility] HEMATOLOGY Eosinophils 0.1 % 0.0 - 4.0 03/02/2016 [facility] HEMATOLOGY Basophils 0.2 % 0.0 - 1.0 03/02/2016 [facility] HEMATOLOGY Segs 87.1 % 45.0 - 75.0 03/02/2016 [facility] HEMATOLOGY Lymphocytes 5.4 % 20.0 - 40.0 03/02/2016 [facility] HEMATOLOGY Monocytes 7.2 % 2.0 - 12.0 03/02/2016 [facility] BLOOD BANK RESULTS Antibody Scrn Negative (03/01/16 9:01 PM) 03/02/2016 [facility] BLOOD BANK RESULTS ABO/Rh B POS 03/02/2016 [facility] CHEM PANEL A/G Ratio 1.2 0.7 - 1.6 03/02/2016 [facility] CHEM PANEL Globulin 3.2 g/dL 2.7 - 4.2 03/02/2016 [facility] CHEM PANEL B/C Ratio 24 6 - 25 03/02/2016 [facility] CHEM PANEL Albumin Lvl 3.8 g/dL 3.5 - 5.0 03/02/2016 [facility] CHEM PANEL Total Protein 7.0 g/dL 6.4 - 8.4 03/02/2016 [facility] CHEM PANEL Alk Phos 79 unit/L 39 - 136 03/02/2016 [facility] CHEM PANEL AST 21 unit/L 0 - 37 03/02/2016 [facility] CHEM PANEL ALT 34 unit/L 0 - 65 03/02/2016 [facility] CHEM PANEL Bili Total 0.5 mg/dL 0.2 - 1.3 03/02/2016 [facility] HEMATOLOGY PTT 29.0 s 22.9 - 35.8 03/02/2016 [facility] HEMATOLOGY INR 1.17 0.85 - 1.17 03/02/2016 [facility] HEMATOLOGY PT 15.1 s 12.0 - 14.7 03/02/2016 [facility] HEMATOLOGY Eosinophils # 0.4 K/CMM 0.0 - 0.5 03/02/2016 [facility] Chest 1view DX Chest 1view DX EXAM: XR CHEST 1 VIEW DATE: 03/01/2016 8:58 PM [employer] INDICATION: Abnormal chest sounds COMPARISON: 10/29/2015 TECHNIQUE: A single AP view of the chest was obtained. FINDINGS: The lungs are well inflated. No focal consolidation or pneumothorax is identified. The cardiomediastinal silhouette is within normal limits. The costophrenic recesses are sharp and without effusion. No acute osseous abnormality is identified. IMPRESSION: No acute cardiopulmonary abnormality. SL: [id number] 03/01/2016 - - Read by: Chip Montenegro MD Dictated Date/time: 03/01/16 21:25 Electronically Signed by: Chip Montenegro MD 03/01/16 21:26 FINAL REPORT [facility] CHEM PANEL eGFR 81 mL/min/1.73m2 12/05/2015 [...] should be multiplied by the estimated BMI. [facility] CHEM PANEL Potassium Lvl 4.0 meq/L 3.5 - 5.1 12/05/2015 [facility] CHEM PANEL Creatinine Lvl 0.93 mg/dL 0.50 - 1.40 12/05/2015 [facility] CHEM PANEL Sodium Lvl 139 meq/L 135 - 145 12/05/2015 [facility] CHEM PANEL Glucose Lvl 108 mg/dL 70 - 99 12/05/2015 [facility] CHEM PANEL BUN 21 mg/dL 7 - 22 12/05/2015 [facility] CHEM PANEL CO2 27 meq/L 24 - 32 12/05/2015 [facility] CHEM PANEL Calcium Lvl 8.6 mg/dL 8.5 - 10.5 12/05/2015 [facility] CHEM PANEL Chloride Lvl 107 meq/L 95 - 109 12/05/2015 [facility] CHEM PANEL AGAP 9.0 meq/L 10.0 - 20.0 12/05/[address] [facility] MCV 91.3 fL 80.0 - 94.0 12/05/[address] [facility] Hct 45.6 % 42.0 - 54.0 12/05/[address] [facility] MCHC 32.8 g/dL 32.0 - 36.0 12/05/[address] [facility] MCH 30.0 pg 27.0 - 31.0 12/05/[address] [facility] MPV 8.5 fL 7.4 - 10.4 12/05/[address] [facility] Platelet 166 K/CMM 133 - 450 12/05/[address] [facility] RDW 14.1 % 11.5 - 14.5 12/05/[address] [facility] Hgb 15.0 g/dL 14.0 - 18.0 12/05/[address] [facility] RBC 5.00 M/CMM 4.70 - 6.10 12/05/2015 [facility] HEMATOLOGY WBC 6.2 K/CMM 3.7 - 10.4 12/05/2015 [facility] HEMATOLOGY Segs-Bands # 3.9 K/CMM 1.5 - 8.1 12/05/2015 [facility] HEMATOLOGY Lymphocytes # 1.1 K/CMM 1.0 - 5.5 12/05/2015 [facility] HEMATOLOGY Basophils 0.5 % 0.0 - 1.0 12/05/2015 [facility] HEMATOLOGY Eosinophils 6.5 % 0.0 - 4.0 12/05/2015 [facility] HEMATOLOGY Lymphocytes 18.5 % 20.0 - 40.0 12/05/2015 [facility] HEMATOLOGY Monocytes 11.7 % 2.0 - 12.0 12/05/2015 [facility] HEMATOLOGY Segs 62.8 % 45.0 - 75.0 12/05/2015 [facility] HEMATOLOGY Eosinophils # 0.4 K/CMM 0.0 - 0.5 12/05/2015 [facility] HEMATOLOGY Monocytes # 0.7 K/CMM 0.0 - 0.8 12/05/[address] [facility] PTT 28.1 s 22.9 - 35.8 12/05/2015 [facility] HEMATOLOGY PT 14.1 s 12.0 - 14.7 12/05/2015 [facility] HEMATOLOGY INR 1.06 0.85 - 1.17 12/05/2015 [facility] CARDIAC ENZYMES Troponin-I 8.00 ng/mL 0.00 - 0.40 10/31/2015 Result Comment: Critical Result(s) called to mary slade at 10/31/2015 04:15 by lgmichael. Read back OK. [facility] CARDIAC ENZYMES Total CK 99 unit/L 12 - 191 10/31/2015 [facility] CARDIAC ENZYMES CK MB 1.5 ng/mL 0.5 - 3.6 10/31/2015 [facility] CARDIAC ENZYMES CK MB Index 1.5 0.0 - 2.5 10/31/2015 [facility] CHEM PANEL eGFR 72 mL/min/1.73m2 10/31/2015 [...] should be multiplied by the estimated BMI. [facility] CHEM PANEL AGAP 9.1 meq/L 10.0 - 20.0 10/31/2015 [facility] CHEM PANEL CO2 29 meq/L 24 - 32 10/31/2015 [facility] CHEM PANEL Calcium Lvl 7.9 mg/dL 8.5 - 10.5 10/31/2015 [facility] CHEM PANEL Chloride Lvl 108 meq/L 95 - 109 10/31/2015 [facility] CHEM PANEL Potassium Lvl 4.1 meq/L 3.5 - 5.1 10/31/2015 [facility] CHEM PANEL BUN 15 mg/dL 7 - 22 10/31/2015 [facility] CHEM PANEL Creatinine Lvl 1.03 mg/dL 0.50 - 1.40 10/31/2015 [facility] CHEM PANEL Glucose Lvl 119 mg/dL 70 - 99 10/31/2015 [facility] CHEM PANEL Sodium Lvl 142 meq/L 135 - 145 10/31/2015 [facility] CHEM PANEL Bili Total 1.0 mg/dL 0.2 - 1.3 10/31/2015 [facility] CHEM PANEL Bili Direct 0.2 mg/dL 0.0 - 0.3 10/31/2015 [facility] CHEM PANEL Alk Phos 46 unit/L 39 - 136 10/31/2015 [facility] CHEM PANEL Albumin Lvl 2.9 g/dL 3.5 - 5.0 10/31/2015 [facility] CHEM PANEL AST 38 unit/L 0 - 37 10/31/2015 [facility] CHEM PANEL A/G Ratio 0.8 0.7 - 1.6 10/31/2015 [facility] CHEM PANEL Globulin 3.7 g/dL 2.7 - 4.2 10/31/2015 [facility] CHEM PANEL Total Protein 6.6 g/dL 6.4 - 8.4 10/31/2015 [facility] CHEM PANEL ALT 31 unit/L 0 - 65 10/31/2015 [facility] CHEM PANEL Bili Indirect 0.8 mg/dL 0.0 - 1.0 10/31/2015 [facility] HEMATOLOGY Hct 43.1 % 42.0 - 54.0 10/31/2015 [facility] HEMATOLOGY Hgb 14.1 g/dL 14.0 - 18.0 10/31/2015 [facility] CARDIAC ENZYMES CK MB Index 3.3 0.0 - 2.5 10/30/2015 [facility] CARDIAC ENZYMES CK MB 4.8 ng/mL 0.5 - 3.6 10/30/2015 [facility] CARDIAC ENZYMES Troponin-I 12.00 ng/mL 0.00 - 0.40 10/30/2015 Result Comment: Critical Result(s) called to justina rodriguez at 10/30/2015 06:07 by lisa. Read back OK. [facility] CARDIAC ENZYMES Total CK 147 unit/L 12 - 191 10/30/2015 [facility] CHEM PANEL Bili Direct 0.2 mg/dL 0.0 - 0.3 10/30/2015 [facility] CHEM PANEL eGFR 82 mL/min/1.73m2 10/30/2015 [...] should be multiplied by the estimated BMI. [facility] CHEM PANEL Bili Total 0.7 mg/dL 0.2 - 1.3 10/30/2015 [facility] CHEM PANEL ALT 35 unit/L 0 - 65 10/30/2015 [facility] CHEM PANEL A/G Ratio 1.0 0.7 - 1.6 10/30/2015 [facility] CHEM PANEL Alk Phos 49 unit/L 39 - 136 10/30/2015 [facility] CHEM PANEL AST 56 unit/L 0 - 37 10/30/2015 [facility] CHEM PANEL Globulin 2.9 g/dL 2.7 - 4.2 10/30/2015 [facility] CHEM PANEL Albumin Lvl 3.0 g/dL 3.5 - 5.0 10/30/2015 [facility] CHEM PANEL Total Protein 5.9 g/dL 6.4 - 8.4 10/30/2015 [facility] CHEM PANEL Creatinine Lvl 0.93 mg/dL 0.50 - 1.40 10/30/2015 [facility] CHEM PANEL BUN 17 mg/dL 7 [...] Lvl 2.0 mg/dL 1.8 - 2.4 10/30/2015 [facility] HEMATOLOGY Lymphocytes # 1.1 K/CMM 1.0 - 5.5 10/30/2015 [facility] HEMATOLOGY Segs-Bands # 6.0 K/CMM 1.5 - 8.1 10/30/2015 [facility] HEMATOLOGY Basophils 0.2 % 0.0 - 1.0 10/30/2015 [facility] HEMATOLOGY Eosinophils 0.7 % 0.0 - 4.0 10/30/2015 [facility] HEMATOLOGY Eosinophils # 0.1 K/CMM 0.0 - 0.5 10/30/2015 [facility] HEMATOLOGY Monocytes # 1.3 K/CMM 0.0 - 0.8 10/30/2015 [facility] HEMATOLOGY Monocytes 14.9 % 2.0 - 12.0 10/30/2015 [facility] HEMATOLOGY Lymphocytes 13.5 % 20.0 - 40.0 10/30/2015 [facility] HEMATOLOGY Segs 70.7 % 45.0 - 75.0 10/30/2015 [facility] HEMATOLOGY Platelet 158 K/CMM 133 - 450 10/30/2015 [facility] HEMATOLOGY RDW 14.3 % 11.5 - 14.5 10/30/[address] [facility] MCHC 33.2 g/dL 32.0 - 36.0 10/30/2015 [facility] HEMATOLOGY Hct 42.1 % 42.0 - 54.0 10/30/[address] [facility] MCH 30.3 pg 27.0 - 31.0 10/30/[address] [facility] Hgb 14.0 g/dL 14.0 - 18.0 10/30/2015 [facility] HEMATOLOGY MCV 91.4 fL 80.0 - 94.0 10/30/[address] [facility] RBC 4.61 M/CMM 4.70 - 6.10 10/30/[address] [facility] MPV 8.8 fL 7.4 - 10.4 10/30/[address] [facility] WBC 8.4 K/CMM 3.7 - 10.4 10/30/2015 [facility] Hep C Ab Negative *NA* (10/29/15 2:40 PM) 10/29/2015 [facility] Hep B Core IgM Negative *NA* (10/29/15 2:40 PM) Negative 10/29/2015 [facility] Hep A IgM Negative *NA* (10/29/15 2:40 PM) Negative 10/29/2015 [facility] Hep Bs Ag Negative *NA* (10/29/15 2:40 PM) Negative 10/29/2015 [facility] LIPIDS LDL (Calculated) 69 mg/dL <=99 mg/dL 10/29/2015 [facility] LIPIDS Chol 133 mg/dL <=199 mg/dL 10/29/2015 [facility] LIPIDS Trig 86 mg/dL <=149 mg/dL 10/29/2015 [facility] LIPIDS CHD Risk 2.83 4.00 - 7.30 10/29/2015 [facility] LIPIDS HDL 47 mg/dL >=61 mg/dL 10/29/2015 [facility] LIPIDS VLDL 17 10/29/2015 [facility] CARDIAC ENZYMES CK MB Index 3.5 0.0 - 2.5 10/29/2015 [facility] CARDIAC ENZYMES Troponin-I 14.00 ng/mL 0.00 - 0.40 10/29/2015 Result Comment: Critical Result(s) called to Corey at 10/29/2015 11:38 byiko. Read back OK. [facility] CARDIAC ENZYMES CK MB 10.1 ng/mL 0.5 - 3.6 10/29/2015 [facility] CARDIAC ENZYMES Total CK 289 unit/L 12 - 191 10/29/2015 [facility] CHEM PANEL eGFR 63 mL/min/1.73m2 10/29/2015 [...] should be multiplied by the estimated BMI. [facility] CHEM PANEL A/G Ratio 0.9 0.7 - 1.6 10/29/2015 [facility] CHEM PANEL Globulin 4.3 g/dL 2.7 - 4.2 10/29/2015 [facility] CHEM PANEL Bili Total 1.1 mg/dL 0.2 - 1.3 10/29/2015 [facility] CHEM PANEL AGAP 11.1 meq/L 10.0 - 20.0 10/29/2015 [facility] CHEM PANEL Alk Phos 58 unit/L 39 - 136 10/29/2015 [facility] CHEM PANEL B/C Ratio 18 6 - 25 10/29/2015 [facility] CHEM PANEL AST 116 unit/L 0 - 37 10/29/2015 [facility] CHEM PANEL Calcium Lvl 8.8 mg/dL 8.5 - 10.5 10/29/2015 [facility] CHEM PANEL Chloride Lvl 102 meq/L 95 - 109 10/29/2015 [facility] CHEM PANEL CO2 30 meq/L 24 - 32 10/29/2015 [facility] CHEM PANEL Albumin Lvl 4.0 g/dL 3.5 - 5.0 10/29/2015 [facility] CHEM PANEL Total Protein 8.3 g/dL 6.4 - 8.4 10/29/2015 [facility] CHEM PANEL ALT 51 unit/L 0 - 65 10/29/2015 [facility] CHEM PANEL Creatinine Lvl 1.14 mg/dL 0.50 - 1.40 10/29/2015 [facility] CHEM PANEL Sodium Lvl 139 meq/L 135 - 145 10/29/2015 [facility] CHEM PANEL Potassium Lvl 4.1 meq/L 3.5 - 5.1 10/29/2015 [facility] CHEM PANEL Glucose Lvl 92 mg/dL 70 - 99 10/29/2015 [facility] CHEM PANEL BUN 20 mg/dL 7 - 22 10/29/2015 [facility] HEMATOLOGY Eosinophils # 0.1 K/CMM 0.0 - 0.5 10/29/2015 [facility] HEMATOLOGY Monocytes # 1.5 K/CMM 0.0 - 0.8 10/29/2015 [facility] HEMATOLOGY Eosinophils 0.6 % 0.0 - 4.0 10/29/2015 [facility] HEMATOLOGY Segs-Bands # 6.4 K/CMM 1.5 - 8.1 10/29/2015 [facility] HEMATOLOGY Lymphocytes # 1.5 K/CMM 1.0 - 5.5 10/29/2015 [facility] HEMATOLOGY Basophils # 0.1 K/CMM 0.0 - 0.2 10/29/2015 [facility] HEMATOLOGY Basophils 0.6 % 0.0 - 1.0 10/29/2015 [facility] HEMATOLOGY Segs 67.0 % 45.0 - 75.0 10/29/2015 [facility] HEMATOLOGY Monocytes 16.1 % 2.0 - 12.0 10/29/2015 [facility] HEMATOLOGY Lymphocytes 15.7 % 20.0 - 40.0 10/29/2015 [facility] HEMATOLOGY PT 14.1 s 12.0 - 14.7 10/29/2015 [facility] HEMATOLOGY INR 1.06 0.85 - 1.17 10/29/2015 [facility] HEMATOLOGY PTT 29.6 s 22.9 - 35.8 10/29/2015 [facility] HEMATOLOGY MPV 8.5 fL 7.4 - 10.4 10/29/2015 [facility] HEMATOLOGY Platelet 198 K/CMM 133 - 450 10/29/2015 [facility] HEMATOLOGY MCHC 32.6 g/dL 32.0 - 36.0 10/29/2015 [facility] HEMATOLOGY RDW 14.5 % 11.5 - 14.5 10/29/2015 [facility] HEMATOLOGY Hgb 16.2 g/dL 14.0 - 18.0 10/29/2015 [facility] HEMATOLOGY RBC 5.45 M/CMM 4.70 - 6.10 10/29/2015 [facility] HEMATOLOGY WBC 9.5 K/CMM 3.7 - 10.4 10/29/2015 [facility] HEMATOLOGY MCV 91.6 fL 80.0 - 94.0 10/29/2015 [facility] HEMATOLOGY MCH 29.8 pg 27.0 - 31.0 10/29/2015 [facility] HEMATOLOGY Hct 49.9 % 42.0 - 54.0 10/29/2015 [facility] Chest 1view DX Chest 1view DX [...] radiographic evidence of acute cardiopulmonary disease. SL: [id number] 10/29/2015 - - Read by: Cody Goss MD Dictated Date/time: 10/29/15 11:46 Electronically Signed by: Cody Goss MD 10/29/15 11:47 FINAL REPORT [facility] Vital Signs Vital Sign Value Date Comments Source Systolic (mm Hg) 151 03/04/2016 [facility] Diastolic (mm Hg) 72 03/04/2016 [facility] Temperature Oral (F) 98.1 F 03/04/2016 [facility] Respitory Rate 18 03/04/2016 [facility] Heart Rate 77 03/04/2016 [facility] Systolic (mm Hg) 148 03/04/2016 [facility] Diastolic (mm Hg) 71 03/04/2016 [facility] Heart Rate 77 03/04/2016 [facility] Respitory Rate 18 03/04/2016 [facility] Temperature Oral (F) 97.7 F 03/04/2016 [facility] Heart Rate 82 03/04/2016 [facility] Systolic (mm Hg) 153 03/04/2016 [facility] Diastolic (mm Hg) 66 03/04/2016 [facility] Respitory Rate 16 03/04/2016 [facility] Temperature Oral (F) 99.1 F 03/04/2016 [facility] Weight 64.091 03/01/2016 [facility] BMI Calculated 21.48 03/01/2016 [facility] Height 172.72 cm 03/01/2016 [facility] Systolic (mm Hg) 139 12/11/2015 [facility] Diastolic (mm Hg) 68 12/11/2015 [facility] Respitory Rate 16 12/11/2015 [facility] Heart Rate 86 12/11/2015 [facility] Respitory Rate 15 12/05/2015 [facility] Temperature Oral (F) 97.9 F 12/05/2015 [facility] Heart Rate 70 12/05/2015 [facility] Systolic (mm Hg) 157 12/05/2015 [facility] Diastolic (mm Hg) 74 12/05/2015 [facility] BMI Calculated 20.87 12/05/2015 [facility] Weight 62.273 12/05/2015 [facility] Height 172.72 cm 12/05/2015 [facility] Respitory Rate 18 10/31/2015 [facility] Systolic (mm Hg) 143 10/31/2015 [facility] Diastolic (mm Hg) 78 10/31/2015 [facility] Temperature Oral (F) 98.3 F 10/31/2015 [facility] Heart Rate 85 10/31/2015 [facility] Heart Rate 80 10/31/2015 [facility] Respitory Rate 20 10/31/2015 [facility] Temperature Oral (F) 98.3 F 10/31/2015 [facility] Systolic (mm Hg) 134 10/31/2015 [facility] Diastolic (mm Hg) 84 10/31/2015 [facility] Temperature Oral (F) 100.3 F 10/31/2015 [facility] Systolic (mm Hg) 145 10/31/2015 [facility] Diastolic (mm Hg) 80 10/31/2015 [facility] Heart Rate 83 10/31/2015 [facility] Respitory Rate 20 10/31/2015 [facility] Weight 63.182 10/29/2015 [facility] Height 172.72 cm 10/29/2015 [facility] BMI Calculated 21.18 10/29/2015 [facility] Encounters Location Location Details Encounter Type Encounter Number Reason For Visit Attending Provider ADM Date DC Date Status Source [facility] Inpatient [id number] Daryl jobylizeth 10/29/2015 10/31/2015 [facility] Bedded Outpatient [id number] Daryl joby 12/10/2015 12/11/2015 [facility] Inpatient [id number] Sanju Robles 03/01/2016 03/04/2016 [facility] Outpatient [id number] Sanju Robles 07/16/2017 07/17/2017 [facility] OP Therapy Patients [id number] [facility] Robles 07/28/2017 08/27/2017 [facility] Outpatient [id number] Sanju Robles 08/06/2017 08/07/2017 [facility] OP Therapy Patients [id number] Sanju Robles 09/02/2017 10/02/2017 [facility] Procedures Procedure Code Date Perfomer Comments Source Stent placement [id number] 10/29/2015 [facility] Stent placement [id number] 10/29/2015 [facility] Appendectomy; 33825 [facility] Control of epistaxis [id number] [facility] Tonsillectomy and adenoidectomy; age 12 or over [address] [facility] Appendectomy; [address] [facility] Control of epistaxis [id number] [facility] Tonsillectomy and adenoidectomy; age 12 or over [address] [facility]
--- OUTSIDE RECORDS SUMMARY | 2018-05-14 06:19 | XMS REPORT | Summary of Care ---
Author Author [facility] Address Unknown Phone Unavailable Encounter HQ Amy(FIN) [id number] Date(s): 09/02/17 - 10/01/17 [facility] Encounter Diagnosis Lumbago with sciatica, unspecified side (Final) - 10/07/17 Low back pain (Final) - Muscle weakness (generalized) (Final) - Discharge Disposition: Home or Self Care Attending [...]
[2018-05-14 07:27] LABS: ANION GAP 11.1 mmol/L (8-16); BLOOD UREA NITROGEN 21 mg/dL (7-26); BUN/CREATININE RATIO 20 (6-25); CALCIUM 9.2 mg/dL (8.4-10.2); CARBON DIOXIDE 23 mmol/L (22-29); CHLORIDE 110 mmol/L (98-107); CREATININE, SERUM 1.05 mg/dL (0.72-1.25); EST GLOMERULAR FILTRATION RATE > 60 ML/MIN (60-); GLUCOSE 107 mg/dL (74-118); POTASSIUM 4.1 mmol/L (3.5-5.1); SODIUM 140 mmol/L (136-145)
[2018-05-14 10:15] VITALS: BP 153/82
--- NOTE | 2018-05-17 10:52 | Operative Report ---
DATE OF PROCEDURE: 05/14/2018 SURGEON: Jonathan Beth MD PREOPERATIVE DIAGNOSES: 1. Right nephrolithiasis. 2. Right indwelling ureteral stent. POSTOPERATIVE DIAGNOSES: 1. Right nephrolithiasis. 2. Right indwelling ureteral stent. OPERATIONS PERFORMED: 1. Cystourethroscopy with complicated removal of right indwelling ureteral stent (separate procedure performed for the diagnosis of stent done with separate scope). 2. Extensive right ureteropyeloscopy with holmium laser lithotripsy, extraction of stones and placement of stent (separate procedure performed for the large volume residual right nephrolithiasis with extremely hard kidney stones composition). 3. Radiological services for supervision and interpretation of ureteroscopy. 4. Interpretation of retrograde ureteropyelography. 5. Supervision of fluoroscopy, no radiologist present. ANESTHESIA: General. COMPLICATIONS: None. CLINICAL SUMMARY: Erwin Barnes Jr. is a 77-year-old man with the above preoperative diagnoses. He was brought for the above procedures. He is aware of the risks of bleeding, infection, injury to adjacent structures, need for additional procedures and elected to proceed. OPERATIVE PROCEDURE IN DETAIL: Informed consent was verified. Erwin Barnes Jr. was properly identified, taken to the operating room, placed on the cystoscopy table in supine position. Anesthesia was uneventfully begun. The patient was then carefully and gently repositioned in dorsal lithotomy position with all pressure points well padded. His genitalia were prepared and draped in usual sterile fashion. A 22.5-Honduran cystoscope sheath with the visual obturator in place was atraumatically inserted into the patient's urethra. It was guided down to unremarkable distal urethra through normal sphincteric region through the prostatic bed, which was wide open, being status post previous prostatectomy. We entered the patient's bladder. There were no suspicious lesions, there were no stones. The stent was noted to be emerging from the right ureteral orifice. A guidewire was then placed alongside the stent and guided to the level of the patient's kidney. The stent was then grasped completely, removed, then discarded. Semi-rigid ureteroscopy was then performed alongside the guidewire. The ureteroscope was brought up into the distal right ureter. No stones were identified. A secondary guidewire was left in place. Flexible ureteroscopy sheath was atraumatically inserted. We then guided a flexible ureteroscope through the semi-flexible ureteroscopy sheath. 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 This opening was wide, now that we have lasered it open at the last procedure, went to the diverticulum and noted numerous stones. The smaller stones were grasped and extracted with Nitinol tipless basket. Numerous passes were needed to be made in order to accomplish this. There were several stones, which were too large to pass. We performed holmium laser lithotripsy of these very hard stones and fragmented them into smaller fragments. We then continued to extract numerous stones until all the significantly sized stones were extracted and only the smallest of fragments remained. Mild bleeding was stirred up from the mucosa with the lasering of the stones as one would expect with the patient who is still on aspirin due to the fact that the patient's costume director would not allow us to discontinue it. The ureteroscope was withdrawn and a guidewire was placed and coiled in the patient's upper pole calyx. We then with cystoscope and fluoroscopic guidance, we placed an indwelling ureteral stent, coiled the proximal coil in the calyceal diverticulum and the distal coil coiled in the patient's bladder. The patient's bladder was drained and the cystoscope was withdrawn. A belladonna and opium suppository was placed revealing a large prostate, smooth, nonfluctuant without any nodules and the patient was uneventfully reversed from anesthesia and taken to recovery room in stable condition. Interpretation of retrograde ureteropyelography: Contrast was instilled in a retrograde fashion via ureteroscope. 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 These defects corresponded to the stones we extracted and lasered. The stent was in good position, coiled in the patient's kidneys as well as the patient's bladder at the end of the case. Plans will be to return the patient to the operating room in several weeks to remove his stents, perform a ureteroscopy and evaluate for any additional stones that remain and manage them as needed. Jonathan Beth MD [place]/MODL /[id number] cc: Sanju Robles MD
== END | disposition home or self-care (01) ==
LOC: OR 06:16
PROVIDERS: ATTEND Urology
DX: N20.0 Calculus of kidney (principal); Z46.6 Encounter for fitting and adjustment of urinary device; Z98.890 Other specified postprocedural states; N28.89 Other specified disorders of kidney and ureter; I10 Essential (primary) hypertension; E78.5 Hyperlipidemia, unspecified; Z01.812 Encounter for preprocedural laboratory examination; Z79.82 Long term (current) use of aspirin; Z79.02 Long term (current) use of antithrombotics/antiplatelets; Z95.5 Presence of coronary angioplasty implant and graft
CPT/HCPCS: 36415 ×2; 52356; 74018; 74420; 80048; 85025; 88300; C1766; C2617; J0696; J1100; J1580; J2001; J2175; J2250; J2405; J2704; Q9967

== ENCOUNTER → 2018-05-31 | Day surgery (SDC) | payer MEDICARE ==
[~2018-05-31] MED LIST changes: -BELLADONNA/OPIUM 30 MG SUPP RC ONE; +BELLADONNA/OPIUM 60 MG SUPP PR ONE; -EPHEDRINE SULFATE INJ 50 MG/10 ML SYR ONE; -GENTAMICIN 80MG/NS 100 ML 100 ML IV ONE; +ROCURONIUM BROMIDE 10 MG/ML 5ML VIAL ONE
--- OUTSIDE RECORDS SUMMARY | 2018-05-31 05:16 | XMS REPORT | Clinical Summary ---
Author Author [facility] Address Unknown Phone Unavailable Care Team Providers Care Server Software Engineer Name Role Phone PCP Unavailable Allergies Not [...] Date Type Specialty Rusty Mcdonald MD 1975 [facility] [address] [place] [address] [phone] 06/25/2018 Hospital Encounter Rusty Mcdonald MD [address] [facility] [address] [place] [address] [phone] REPAIR,EXTROPIAN EXTENSIVE 06/25/2018 Surgery Results Not on fileafter 05/30/2017 Insurance Payer Benefit Subscriber ID Type Phone Address Plan / Group BLUE CROSS/BLUE SHIELD - BCBS xxxxxxxxxxxx MEDICARE MGD CARE MEDICARE ADVANTAGE
[2018-05-31 09:45] VITALS: BP 162/84
--- NOTE | 2018-07-14 05:52 | Operative Report ---
DATE OF PROCEDURE: 05/31/2018 SURGEON: Jonathan Beth MD PREOPERATIVE DIAGNOSES: 1. Right nephrolithiasis. 2. Right hydronephrosis. 3. Right indwelling ureteral stent. POSTOPERATIVE DIAGNOSIS: 1. Right nephrolithiasis. 2. Right hydronephrosis. 3. Right indwelling ureteral stent. OPERATION PERFORMED: 1. Cystourethroscopy with complicated removal of right indwelling ureteral stent (separate procedure performed for the diagnosis of the stent done with separate scope). 2. Right flexible ureteropyeloscopy with stone manipulation (complicated and lengthy procedure performed for the severe residual and innumerable right nephrolithiasis). 3. Radiological services with supervision and interpretation of ureteroscopy. 4. Cystourethroscopy with insertion of right indwelling ureteral stent (separate procedure performed to relieve the hydronephrosis). 5. Interpretation of retrograde ureteropyelography. 6. Supervision of fluoroscopy, no radiologist present. ANESTHESIA: General. COMPLICATIONS: None. CLINICAL SUMMARY: Erwin Barnes Jr. 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 He underwent laser lithotripsy and is brought to the operating room for removing any residual stone fragments. He is aware of the risks of bleeding, infection, injury to adjacent structures, need for additional procedures and elected to proceed. OPERATIVE PROCEDURE IN DETAIL: Informed consent was verified. Erwin Barnes Jr. was properly identified, taken to the operating room, placed on the cystoscopy table in supine position. Anesthesia was uneventfully begun. The patient was then carefully gently repositioned in dorsal lithotomy position with all pressure points were padded. His genitalia were prepared and draped in usual sterile fashion. A 22.5-Czech cystoscope sheath with the visual obturator in place was atraumatically inserted in the patient's urethra and was guided down the unremarkable distal urethra through normal sphincteric region through the prostate bed, which was opened, status post transurethral resection of prostate. We entered the patient's bladder. We identified a stent emerging from the right ureteral orifice. It was not significantly encrusted. A guidewire was then placed alongside the stent and guided to the level of the patient's kidney. The stent was then grasped, completely removed and discarded. Semi-rigid ureteroscopy was performed atraumatically in the distal ureter and no stones were identified. A secondary guidewire was placed. The flexible ureteroscopy sheath was utilized. We inserted it atraumatically and guided it proximally with fluoroscopic guidance. We then placed the flexible ureteroscope through this flexible ureteroscopy sheath and guided to the level of the patient's kidney. Panendoscopy with intrarenal collecting system revealed no stones outside the calyceal diverticulum. We entered the calyceal diverticulum now that previously dilated by me at the prior procedures. When we entered the calyceal diverticula, there were innumerable stones and stone fragments were identified. These were all small and the patient has failed to pass them. We grasped some stones with Nitinol tipless basket and atraumatically extracted and this procedure was performed countless times until no significantly sized stones remained within that calyceal diverticulum. Fine sand was irrigated to ensure it was loose from the mucosa and it should be passable. We carefully reexamined the ureter as we exited. With cystoscopic and fluoroscopic guidance, a right-sided indwelling ureteral stent was then placed, it was coiled in the calyceal diverticulum as well as the patient's bladder. The retaining suture was left long revealing a 40 g prostate that was smooth, non-fluctuant without any nodules. The patient was uneventfully reversed from anesthesia and taken to the recovery room in stable condition. There were no complications of the procedure. The patient tolerated the procedure well. Estimated blood loss minimal. Explicit postop instructions were given. We will plan on following patient up in the office in several weeks to remove his stent. Ongoing urological followup is a must. Jonathan Beth MD [place]/MODL /[id number] cc: MD Jonathan Solis MD
== END | disposition home or self-care (01) ==
LOC: OR 05:00
PROVIDERS: ATTEND Urology
DX: N20.0 Calculus of kidney (principal); N13.30 Unspecified hydronephrosis; N28.89 Other specified disorders of kidney and ureter; Z46.6 Encounter for fitting and adjustment of urinary device; I25.10 Atherosclerotic heart disease of native coronary artery without angina pectoris; I10 Essential (primary) hypertension; I25.2 Old myocardial infarction; Z79.82 Long term (current) use of aspirin; Z79.02 Long term (current) use of antithrombotics/antiplatelets
CPT/HCPCS: 52332; 52352; 74420; 88300; C1766; C2617; J0696; J1100; J2001; J2175; J2250; J2405; J2704; Q9967

== ENCOUNTER → 2018-10-15 | Outpatient (CLI) | payer MEDICARE ==
[~2018-10-15] MED LIST changes: -BELLADONNA/OPIUM 60 MG SUPP PR ONE; -CEFTRIAXONE SOD 1 GM/NS 50 ML 50 ML IV ONE; -DEXAMETHASONE SOD PHOS INJ 4 MG/ML VIAL ONE; -FENTANYL CITRATE/PF 100MCG/2 ML INJ ONE; -IOPAMIDOL 610MG/1ML 300 MG/ML VIAL IV ONE; -LIDOCAINE HCL 2% LOCAL INJ 5 ML SDV VIAL INJ ONE; -MEPERIDINE HCL INJ 25 MG/ML VIAL ONE; -MIDAZOLAM HCL 2 MG/2 ML VIAL ONE; -ONDANSETRON HCL INJ 2MG/ML 2ML 2 MG/ML VIAL ONE; -PROPOFOL IV EMULSION 10 MG/ML 20 ML VIAL ONE; -ROCURONIUM BROMIDE 10 MG/ML 5ML VIAL ONE; -SEVOFLURANE INHAL SOLN 250 ML PEN BTL ONE
--- NOTE | 2018-10-15 12:12 | Diagnostic Imaging Report ---
Exam: KUB - 2 views Clinical History: Renal calculus Comparison: CT abdomen pelvis of 10/01/2017 Findings: Subtle 4 mm calcific density overlying the mid pole of the left renal silhouette. Large right upper pole renal calculi seen on prior CT are not visualized on this KUB. No other abnormal calcifications. Nonobstructive bowel gas pattern. No free air. Degenerative changes of the lower lumbar spine. Severe degenerative changes of the right hip joint. Impression: Subtle 4 mm calcific density overlying the mid pole of the left renal silhouette may represent a renal calculus. Severe right hip degenerative changes. Signed by: Prince Botello MD on 10/15/2018 12:09 PM
== END ==
LOC: RAD 11:17
PROVIDERS: ATTEND Urology
DX: N20.0 Calculus of kidney (principal)
CPT/HCPCS: 74018

== ENCOUNTER → 2018-10-21 | Outpatient (CLI) | payer MEDICARE ==
--- NOTE | 2018-10-21 09:43 | Diagnostic Imaging Report ---
EXAM: CT Chest WITHOUT intravenous contrast 10/21/2018 8:40 AM INDICATION: Pulmonary nodules COMPARISON: Chest CT of 11/02/2017 TECHNIQUE: Chest was scanned utilizing a multidetector helical scanner from the lung apex through the level of the adrenal glands without administration of IV contrast. Coronal and sagittal reformations were obtained. Routine protocol was performed. IV CONTRAST: None RADIATION DOSE: Total DLP: 231.1 mGy*cm. Dose modulation, iterative reconstruction, and/or weight based adjustment of the mA/kV was utilized to reduce the radiation dose to as low as reasonably achievable. COMPLICATIONS: None FINDINGS: LINES/ TUBES: None. LUNGS AND AIRWAYS: The central airways are patent. No focal consolidation or pulmonary edema. Previously described right lower lobe pulmonary nodule appears essentially unchanged, measuring 3 mm. No new suspicious nodules. PLEURA: No pleural effusion or pneumothorax. HEART AND MEDIASTINUM: The thyroid gland appears unremarkable. No supraclavicular, mediastinal, hilar, axillary, subpectoral, or internal mammary lymphadenopathy. The heart is not enlarged. Atherosclerotic calcifications involve the coronary arteries and thoracic aorta. No pericardial effusion. UPPER ABDOMEN: Limited non-contrast views of the upper abdomen show no abnormality within the visualized liver, spleen, adrenals, or pancreas. 4 mm right upper pole renal calculi. Right and left renal upper pole cysts. No hydronephrosis. BONES: The visualized bony thorax is within normal limits. SOFT TISSUES: Unremarkable. IMPRESSION: Stable right lower lobe pulmonary nodule. No new suspicious nodules. No further follow-up is necessary. Signed by: Prince Botello MD on 10/21/2018 9:39 AM
== END ==
LOC: CT 08:29
PROVIDERS: ATTEND Internal Medicine
DX: R91.1 Solitary pulmonary nodule (principal)
CPT/HCPCS: 71250

== ENCOUNTER → 2019-02-16 | Outpatient (CLI) | payer MEDICARE ==
--- NOTE | 2019-02-16 10:26 | Diagnostic Imaging Report ---
CT of the abdomen and pelvis, without contrast, 02/16/2019. History: Left kidney stone. Comparison: CT chest 10/21/2018. Abdominal x-ray 10/15/2018. Technique: Multidetector CT scanning of the abdomen and pelvis was performed from the level of the lung bases to the inferior pubic rami without intravenous or oral contrast. Coronal and sagittal multiplanar reformations were obtained. RADIATION DOSE: Total DLP: 511 mGy*cm Dose modulation, iterative reconstruction, and/or weight based adjustment of the mA/kV was utilized to reduce the radiation dose to as low as reasonably achievable. Discussion: Examination is limited without contrast. Lung bases: No abnormality. Abdomen: Multiple simple cysts are present in both kidneys, the largest on the right measuring 1.3 cm and the largest on the left measuring 2.8 cm. A 4 mm calcification is again seen along the posterior aspect of the right renal upper pole. Vascular calcifications are noted centrally on the left. There is no evidence of hydronephrosis or perinephric fat stranding. The liver, gallbladder, biliary tree, spleen, pancreas, and adrenal glands are unremarkable. The infrarenal abdominal aorta is dilated measuring 3.2 cm in maximal AP diameter. A circumaortic left renal vein is present. There is no bowel dilatation. There is no evidence of adenopathy or free fluid. Pelvis: The bladder, prostate, and seminal vesicles are unremarkable. There is no evidence of free fluid or adenopathy. Small fat-containing inguinal hernias are present bilaterally. Bones and soft tissues: Advanced degenerative changes are present throughout the lumbar spine without evidence of lytic or sclerotic lesion. Total right hip replacement is noted. IMPRESSION: 1. Small nonobstructing right renal calcification. No renal calculus on the left. 2. Multiple bilateral simple renal cysts. 3. A 3.2 cm infrarenal fusiform abdominal aortic aneurysm is present. Recommend follow-up exam every 3 years. Signed by: Chip Harp on 02/16/2019 10:22 AM
== END ==
LOC: CT 09:14
PROVIDERS: ATTEND Urology
DX: N20.0 Calculus of kidney (principal)
CPT/HCPCS: 74176

== ENCOUNTER → 2020-10-15 | Outpatient (CLI) | payer MEDICARE ==
[~2020-10-15] MED LIST changes: +FENTANYL CITRATE/PF 100MCG/2 ML INJ ONE; +MIDAZOLAM HCL 2 MG/2 ML VIAL ONE
[2020-10-15 08:35] LABS: HEMOGLOBIN 13.8 g/dL (14.0-18.0)
[2020-10-15 08:52] LABS: INR 1.03; PROTHROMBIN TIME 13.7 seconds (11.9-14.5)
[2020-10-15 08:54] LABS: PARTIAL THROMBOPLASTIN TIME 30.8 seconds (23.8-35.5)
== END ==
LOC: CT 08:14
PROVIDERS: ATTEND Urology
DX: D41.00 Neoplasm of uncertain behavior of unspecified kidney (principal)
CPT/HCPCS: 10005; 10009; 32408; 36415; 50200; 71045; 76942; 85014; 85049; 85610; 85730; 88112; 88172; 88173; 88305; J2250; J3010; 77012; 99152; 99153